=== PATIENT | male | born 1975 | race Caucasian/White ===

== ENCOUNTER → 2019-11-07 08:06 | Outpatient (BNVA) | payer MEDICARE, SELFPAY | PROVIDERS: Visit Provider Nurse Practitioner Psychiatric/Mental Health | DX: F41.1 Generalized anxiety disorder (principal); F15.21 Other stimulant dependence, in remission; F17.210 Nicotine dependence, cigarettes, uncomplicated; F33.2 Major depressive disorder, recurrent severe without psychotic features; Z79.899 Other long term (current) drug therapy; Z03.89 Encounter for observation for other suspected diseases and conditions ruled out | CPT/HCPCS: 80053; 80061; 80307; 83036; 85025; 99214 ==

== ENCOUNTER 2019-11-08 10:50 | Emergency (ER) | payer MEDICARE, SELFPAY ==
[2019-11-08 10:54] VITALS: BP 135/79; PULSE 64; RESP 18; TEMP 36.3; O2SAT 99; BMI 25.0
--- NOTE | 2019-11-08 11:19 | PC.NURSE ---
Patient reports that he was taking out the trash 3 days ago when he began to get right knee pain. Patient states the pain has got worse and it hard for him to lay flat.
--- NOTE | 2019-11-08 11:29 | XR_ITS ---
WS: [id number] Right knee, 3 views, 11/08/2019 Clinical Data: pain, injury Comparison: Right leg, 12/29/2006. Findings: No fractures or dislocations are seen. The joint spaces are normal. The patella is intact. The soft t issues are unremarkable. XR/XR knee RT 3V* [id number] Impression: Negative right knee.
--- NOTE | 2019-11-08 11:30 | W.ED.EXTPRO ---
HPI - Extremity Problem General: Chief complaint: Extremity Problem,Nontraumatic Stated complaint: right knee pain Time Seen by Provider: 11/08/19 11:24 History of Present Illness: HPI Narrative: Patient reports taking out the trash about 3 days ago and since that time his right knee started hurting. For last 2 days patient reports significant pain to the knee making it difficult to sleep and rest. Patient appears in moderate pain. Patient is ambulatory using a cane to help himself walk. Review of Systems General: Reports: 10 or more systems reviewed and unremarkable except in HPI and below Musc: Reports: joint pain PFSH ED PFSH: Medical History (Updated 11/08/19 @ 12:08 by NGUYỄN Ny) Amphetamine dependence, in remission Generalized anxiety disorder Major depressive disorder, recurrent severe without psychotic features Nicotine dependence, cigarettes, uncomplicated Social History (Updated 11/07/19 @ 08:15 by Abbey Clakr LPN) Smoking and tobacco status: current every day smoker cigarettes Packs smoked per day: 1 Physical Exam Const: COMMON NORMALS: no apparent distress and oriented x3 GENERAL APPEARANCE: cooperative HENMT: COMMON NORMALS: normocephalic, external ears normal, EAC's normal, TM's normal bilaterally and external nose normal HEAD & SCALP: normal to inspection and normocephalic FACE & SINUS: normal facial exam NOSE: external nose normal GENERAL EAR: hearing not grossly impaired EXTERNAL EAR: Yes external ears normal EXTERNAL AUDITORY CANAL: EAC's normal TYMPANIC MEMBRANE: TM's normal bilaterally MOUTH: oral and palatal mucosa normal THROAT: posterior oropharynx normal Eye: COMMON NORMALS: PERRL and EOMs intact bilaterally PUPIL: Yes PERRL Neck/C-Spine: COMMON NORMALS: full ROM and no lymphadenopathy Lymph: LYMPHATIC: no lymphedema noted Chest: COMMONS NORMALS: inspection of chest normal and palpation of chest normal Resp: COMMON NORMALS: normal respiratory effort and clear to auscultation bilaterally AUSCULTATION: clear to auscultation bilaterally Cardio: COMMON NORMALS: regular rate and regular rhythm RATE: regular rate RHYTHM: regular rhythm GI: COMMON NORMALS: normal to inspection, nondistended, normoactive bowel sounds and non-tender : COMMON NORMALS: Yes no CVA tenderness BLADDER/KIDNEY EXAM: Yes no CVA tenderness Back/Pelvis: COMMON NORMALS: no CVA tenderness and thoracic and lumbar spine normal to inspection Extremity: COMMON NORMALS: normal to inspection GENERAL: Yes edema (mild right knee, no redness, minimal swelling) RIGHT LOWER EXTREMITY: Yes knee joint (lateral tenderness left knee) Neuro: COMMON NORMALS: oriented x3, moves all extremities and no focal motor deficits Psych: COMMON NORMALS: mental status grossly normal and cooperative Skin: COMMON NORMALS: no rashes or lesions noted GENERAL SKIN EXAM: no rashes or lesions noted Course Vital Signs: Vital signs: Vital Signs Temperature 97.4 F L 11/08/19 10:54 Pulse Rate 64 11/08/19 10:54 Respiratory Rate 18 11/08/19 10:54 Blood Pressure 135/79 11/08/19 10:54 Pulse Oximetry 99 11/08/19 10:54 MDM - Extremity (Nontraumatic) MDM Narrative: Medical decision making narrative: Patient comes in today with right knee pain. Patient been helping with some decking 3 days ago and then at night started having some pain in his right knee. Patient now reports he is unable to bend the knee and has significant pain that he is unable to sleep. Exam notes tenderness to the knee joint bilaterally. No obvious swelling or redness. Skin is warm and dry. Pulses are palpable distal to the extremity with no redness or swelling distal part of the extremity. Differential diagnosis includes arthritis, tendinitis, bursitis, sprain, fracture. X-rays were negative for any abnormality. Reviewed exam with patient recommended treatment for tendinitis. Reviewed that most often it takes 7 to 10 days for this to resolve whether he takes any medication or not. Encourage patient to use ice or heat and be as active as he can. Patient reports understanding. Discharge Plan Discharge Patient Disposition: Home, Self-Care Clinical Impression: Acute pain of right knee, Tendinitis Condition: Stable Prescriptions: New hydrocodone-acetaminophen 5-325 mg tablet 1 tab PO Q6H PRN (Reason: pain) Qty: 10 RF: 0 naproxen 500 mg tablet 500 mg PO BID Qty: 20 RF: 0 prednisone 20 mg tablet 40 mg PO DAILY 5 Days Qty: 10 RF: 0 No Action lamotrigine [Lamictal] 150 mg tablet 150 mg PO BID RF: 0 levetiracetam [Keppra] 750 mg tablet 750 mg PO BID RF: 0 Discharge Orders: Discharge Order (Routine); Ordered 11/08/19 Ordered By: Todd Estrada Discharge Diet: Usual diet Discharge Activity: Increase activity as tolerated Patient Instructions: Knee Pain (ED) Activity Restrictions/Additional Instructions: Activity as tolerated Gentle stretching and range of motion Ice or heat for further pain relief Drink plenty of water with medications Use cane or crutches until you can walk comfortably on leg Follow-up primary care one week 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
[2019-11-08] MEDS: HYDROcodone-acetaminophen 7.5-325 mg Tablet 1 TAB PO (11:37)
[2019-11-08 12:22] VITALS: BP 129/89; PULSE 58; RESP 16; O2SAT 97
== END 2019-11-08 12:23 | disposition home or self-care (01) ==
LOC: ER 12:12
PROVIDERS: Emergency Provider Nurse Practitioner Family
DX: M76.9 Unspecified enthesopathy, lower limb, excluding foot (principal); M25.561 Pain in right knee; F17.210 Nicotine dependence, cigarettes, uncomplicated
CPT/HCPCS: 73562; 99281; 99283; E0114

== ENCOUNTER → 2019-12-28 08:11 | Outpatient (BNVA) | payer MEDICARE, SELFPAY | PROVIDERS: Visit Provider Nurse Practitioner Psychiatric/Mental Health | DX: F33.2 Major depressive disorder, recurrent severe without psychotic features (principal); F41.1 Generalized anxiety disorder; F15.21 Other stimulant dependence, in remission; F17.210 Nicotine dependence, cigarettes, uncomplicated | CPT/HCPCS: 99214 ==

== ENCOUNTER 2020-01-05 18:24 | Emergency (ER) | payer MEDICARE, SELFPAY ==
[2020-01-05 18:53] VITALS: BP 131/84; PULSE 63; RESP 16; TEMP 36.9; O2SAT 97; BMI 24.3
--- NOTE | 2020-01-05 21:44 | ED_ITS ---
HPI - Extremity Problem General: Chief complaint: Extremity Injury, Lower Stated complaint: left leg lac Time Seen by Provider: 01/05/20 21:44 History of Present Illness: Associated symptoms: Deny chest pain, fever(s) or rash Review of Systems Const: Denies: fever, chills or fatigue Eyes: Denies: change in vision or eye discomfort ENMT: Denies: throat pain, painful swallowing, nasal discharge or nasal congestion Card: Denies: chest pain, palpitations, edema, swelling of feet/ankles, shortness of breath on exertion or shortness of breath when lying down Resp: Denies: shortness of breath, productive cough or non-productive cough GI: Denies: abdominal pain, nausea, vomiting, diarrhea, constipation or blood in stool : Denies: flank pain, difficulty urinating, painful urination or blood in urine Musc: Denies: neck pain, back pain or extremity swelling Skin/Breast: Denies: rash or new lesion Neuro: Denies: headache, numbness in extremities or weakness in extremities PFSH ED PFSH: Medical History Amphetamine dependence, in remission early remission, 3 months Last use September 2019 Generalized anxiety disorder Major depressive disorder, recurrent severe without psychotic features Nicotine dependence, cigarettes, uncomplicated Social History Smoking and tobacco status: current every day smoker cigarettes Packs smoked per day: 1 Physical Exam Const: COMMON NORMALS: oriented x3 HENMT: COMMON NORMALS: normocephalic HEAD & SCALP: normocephalic MOUTH: oral and palatal mucosa normal THROAT: posterior oropharynx normal and uvula midline Neck/C-Spine: COMMON NORMALS: supple GENERAL: Yes normal visual inspection Resp: COMMON NORMALS: normal respiratory effort, no retractions, no use of accessory muscles and clear to auscultation bilaterally AUSCULTATION: clear to auscultation bilaterally Cardio: COMMON NORMALS: regular rate, regular rhythm, S1 normal heart sound, S2 normal heart sound, no gallops, no clicks, no murmurs and peripheral pulses 2+ throughout RATE: regular rate RHYTHM: regular rhythm HEART SOUNDS: S1 normal and S2 normal PERIPHERAL PULSES: pulses 2+ throughout GI: COMMON NORMALS: normal to inspection, nondistended, normoactive bowel sounds, soft to palpation, non-tender and no masses PALPATION: Yes soft : COMMON NORMALS: Yes no CVA tenderness BLADDER/KIDNEY EXAM: Yes no CVA tenderness Back/Pelvis: COMMON NORMALS: no CVA tenderness Neuro: COMMON NORMALS: oriented x3 and moves all extremities Course Vital Signs: Vital signs: Vital Signs Temperature 98.5 F 01/05/20 18:53 Pulse Rate 63 01/05/20 18:53 Respiratory Rate 16 01/05/20 18:53 Blood Pressure 131/84 01/05/20 18:53 Pulse Oximetry 97 01/05/20 18:53 Discharge Plan Discharge Prescriptions: No Action lamotrigine [Lamictal] 150 mg tablet 150 mg PO BID RF: 0 levetiracetam [Keppra] 750 mg tablet 750 mg PO BID RF: 0 sertraline [Zoloft] 100 mg tablet 100 mg PO .morning Qty: 30 RF: 3 quetiapine [Seroquel] 25 mg tablet 25 mg PO .bedtime Qty: 30 RF: 1 clonazepam [Klonopin] 0.5 mg tablet 0.25 mg PO BID Qty: 30 RF: 0 clonazepam [Klonopin] 0.5 mg tablet 0.25 mg PO DAILY Qty: 15 RF: 0 clonazepam [Klonopin] 0.5 mg tablet 0.5 mg PO BID Qty: 30 RF: 0 hydrocodone-acetaminophen 5-325 mg tablet 1 tab PO Q6H PRN (Reason: pain) Qty: 10 RF: 0 naproxen 500 mg tablet 500 mg PO BID Qty: 20 RF: 0 Coding 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
== END 2020-01-05 21:46 | disposition left against medical advice (07) ==
PROVIDERS: Emergency Provider Physician Assistant
DX: Z53.29 Procedure and treatment not carried out because of patient's decision for other reasons (principal)
CPT/HCPCS: 99281

== ENCOUNTER 2020-01-06 05:38 | Emergency (ER) | payer MEDICARE, SELFPAY ==
[2020-01-06 05:55] VITALS: BP 127/84; PULSE 73; RESP 18; TEMP 36.6; O2SAT 97; BMI 24.3
--- NOTE | 2020-01-06 06:22 | PC.NURSE ---
MD at bedside for evaluation
--- NOTE | 2020-01-06 06:23 | W.ED.WOUNDLC ---
HPI - Wound/Laceration General: Chief Complaint: Wound/Laceration Stated Complaint: left leg lac Time Seen by Provider: 01/06/20 06:08 History of Present Illness: HPI narrative: A 4-year-old male he was seen last night to be seen for a laceration on the left knee he ended a bleeding because he said he had to bring someone to work returns this morning. He is unsure of his last tetanus shot Onset (ago): hour(s) (12) Extremity Location: Left: knee Place: home Patient tetanus UTD: No Associated symptoms: Denies chills, fever(s), nausea or vomiting Review of Systems Const: Denies: fever, chills, body aches, change in appetite, fatigue or malaise Card: Denies: chest pain, edema, shortness of breath on exertion or shortness of breath when lying down Resp: Denies: shortness of breath, productive cough or non-productive cough GI: Denies: abdominal pain, nausea, vomiting, vomiting blood, coffee grounds in vomit, diarrhea, constipation, bloating, blood in stool or black tarry stool Skin/Breast: Denies: rash or itching PFSH ED PFSH: Social History Smoking and tobacco status: current every day smoker cigarettes Packs smoked per day: 1 Physical Exam Const: COMMON NORMALS: average body habitus, oriented x3 and alert GENERAL APPEARANCE: cooperative, comfortable, well kempt and well developed NUTRITIONAL APPEARANCE: obese ORIENTATION/CONSCIOUSNESS: Yes awake, Yes oriented to person and Yes oriented to place Neck/C-Spine: COMMON NORMALS: no meningeal signs Resp: COMMON NORMALS: normal respiratory effort, no retractions, no use of accessory muscles and clear to auscultation bilaterally AUSCULTATION: clear to auscultation bilaterally Cardio: COMMON NORMALS: regular rate and regular rhythm RATE: regular rate RHYTHM: regular rhythm HEART SOUNDS: no murmurs GI: COMMON NORMALS: normal to inspection, nondistended, normoactive bowel sounds, soft to palpation and no hepatosplenomegaly PALPATION: Yes soft and Yes no hepatosplenomegaly Extremity: COMMON NORMALS: no clubbing, cyanosis or edema, no calf tenderness and no pedal edema NARRATIVE EXTREMITY EXAM: 2 inch laceration lateral aspect of the left knee it is superficial there is no involvement of any deep tissue see laceration note Neuro: COMMON NORMALS: oriented x3 SENSORIUM/ORIENTATION: Yes alert, Yes oriented to person and Yes oriented to place MENINGEAL SIGNS: Yes no meningeal signs Psych: APPEARANCE: Yes well kempt Procedures Laceration Laceration 1: Site: lower extremity (Lateral aspect left knee) Side (If applicable): left Size (cm): 2.5 Description: linear Depth: simple, single layer Local Anesthetic: lidocaine 1% and with epi Amount of anesthesia used (mL): 2 Pre-repair: wound explored and irrigated extensively Skin layer closed with: nylon Size (cm): 4-0 Number of sutures: 1 Technique: running Course Vital Signs: Vital signs: Vital Signs Temperature 97.9 F 01/06/20 05:55 Pulse Rate 73 01/06/20 05:55 Respiratory Rate 18 01/06/20 05:55 Blood Pressure 127/84 01/06/20 05:55 Pulse Oximetry 97 01/06/20 05:55 MDM - Wound/Laceration MDM Narrative: Medical decision making narrative: Wound care instructions given sutures to be removed in 10 days. Return for any signs of infection Discharge Plan Discharge Patient Disposition: Home, Self-Care Clinical Impression: Laceration Condition: Stable Prescriptions: New mupirocin 2 % ointment 1 applic TOPICAL BID Qty: 22 RF: 0 cephalexin 500 mg capsule 500 mg PO TID 7 Days Qty: 21 RF: 0 No Action levetiracetam [Keppra] 750 mg tablet 750 mg PO BID RF: 0 sertraline [Zoloft] 100 mg tablet 100 mg PO .morning Qty: 30 RF: 3 Discharge Orders: Discharge Order (Routine); Ordered 01/06/20 Ordered By: Saji Melton Discharge Diet: Usual diet Discharge Activity: Resume usual activity Patient Instructions: Laceration (ED) Activity Restrictions/Additional Instructions: Follow-up with your primary care doctor in 10 days to have sutures removed. Apply antibiotic ointment twice daily to the wound. 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
--- NOTE | 2020-01-06 06:32 | PC.NURSE ---
MD at bedside to repair laceration. Pt. tolerating well
[2020-01-06] MEDS: tetanus-dipt-pertussis 0.5 mL SDV IM (06:49)
--- NOTE | 2020-01-06 06:58 | PC.NURSE ---
Report given to Roxanne FULLER
[2020-01-06] MEDS: neomycin-poly-bacitracin oint 0.9 gm Pkt 1 APPLIC TOPICAL (07:03)
--- NOTE | 2020-01-06 07:10 | PC.NURSE ---
Ointment and bandaid applied to wound on left knee prior to D/C.
[2020-01-06 07:13] VITALS: PULSE 78; RESP 17; O2SAT 98
== END 2020-01-06 07:09 | disposition home or self-care (01) ==
PROVIDERS: Emergency Provider Family Medicine
DX: S81.012A Laceration without foreign body, left knee, initial encounter (principal); X58.XXXA Exposure to other specified factors, initial encounter; Z23 Encounter for immunization; F17.210 Nicotine dependence, cigarettes, uncomplicated
CPT/HCPCS: 12001; 12345; 90471; 90715; 99281; 99283

== ENCOUNTER 2020-01-15 03:49 | Emergency (ER) | payer MEDICARE, SELFPAY ==
[2020-01-15 03:59] VITALS: BP 161/84; PULSE 90; RESP 22; TEMP 36.6; O2SAT 96; BMI 22.8
--- NOTE | 2020-01-15 04:02 | XRR_ITS ---
PROCEDURE INFORMATION: Exam: XR Chest, 1 View Exam date and time: 01/15/2020 4:56 AM Age: 44 years old Clinical indication: Prior surgery; Surgery date: 6+ months; Surgery type: Stim; Patient HX: Seizure activity w n/v; Additional info: Rebecca TECHNIQUE: Imaging protocol: XR of the chest Views: 1 view. COMPARISON: CR Chest 1 [place] [id number] 01/15/2019 2:09 PM FINDINGS: Lungs: There are some increased interstitial markings present in the lower hemithoraces bilaterally, findings could represent mild aspiration pneumonitis in view the patient's clinical history of seizure activity. Pleural space: Unremarkable. No pleural effusion. No pneumothorax. Heart/Mediastinum: Unremarkable. No cardiomegaly. Vasculature: Stable placement of a neuro stimulating device overlying the left carotid artery. Bones/joints: Unremarkable. XR/XR chest 1V portable [id number] IMPRESSION: Increased interstitial markings in the lower hemithoraces could represent mild aspiration pneumonitis.
--- NOTE | 2020-01-15 04:02 | CTR_ITS ---
PROCEDURE INFORMATION: Exam: CT Head Without Contrast Exam date and time: 01/15/2020 4:15 AM Age: 44 years old Clinical indication: Condition or disease; Convulsions or seizures; Epilepsy; Severity not specified; Unspecified; Prior surgery; Surgery date: 6+ months; Surgery type: Stim; Patient HX: Multiple seizures; Additional info: Rebecca TECHNIQUE: Imaging protocol: Computed tomography of the head without contrast. Radiation optimization: All CT scans at this facility use at least one of these dose optimization techniques: automated exposure control; mA and/or kV adjustment per patient size (includes targeted exams where dose is matched to clinical indication); or iterative reconstruction. COMPARISON: CT head wo con* [id number] 12/04/2018 6:23 PM RADIATION DOSE METRICS: Total DLP: 644.13 mGy-cm FINDINGS: Brain: Normal. No hemorrhage. Unremarkable white matter. No mass effect. Ventricles: Normal. No ventriculomegaly. Bones/joints: Unremarkable. No acute fracture. Sinuses: Visualized sinuses are unremarkable. No fluid levels. Mastoid air cells: Visualized mastoid air cells are well aerated. Soft tissues: Unremarkable. CT/CT head wo con* [id number] IMPRESSION: No acute intracranial abnormality. Radiation Dose CTDIVOL = (mGy): DLP = 644.13 (mGy-cm)
[2020-01-15 04:04] VITALS: BP 133/60; PULSE 98; RESP 16; O2SAT 96
[2020-01-15] MEDS: midazolam 1 mg/mL INJ 2 mL 2 MG IVP (04:12)
[2020-01-15 04:17] LABS: Basophils % 0.2 %; Eosinophils % 0.1 %; Hemoglobin 15.6 g/dL (11.7-16.6); Lymphocytes # 1.5 10^3/uL (0.8-4.8); Lymphocytes % 9.9 %; Mean Corpuscular HGB Conc 31.2 g/dL (30.0-36.0); Mean Corpuscular Volume 99.4 fL (80-94); Mean Platelet Volume 9.9 fL (7.4-10.4); Monocytes # 0.7 10^3/uL (0.2-0.9); Monocytes % 4.7 %; Neutrophils # 13.1 10^3/uL (1.8-7.7); Neutrophils % 84.7 %; Nucleated Red Blood Cells % 0 %; Platelet Count 285 10^3/cmm (130-400); Red Blood Count 5.03 10^6/uL (4.1-5.3); Red Cell Distribution Width 12.8 % (12.1-15.1); White Blood Count 15.5 10^3/uL (4.0-10.0)
[2020-01-15 04:27] LABS: ABG PCO2 38.1 mmHg (35-45); ABG PH Result 7.28 (7.35-7.45); Arterial Blood Gas Hematocrit 48.9 % (42-52); Base Excess ABG -8.4 mmol/L (-2.0-2.0); Blood Gas Allen Test Pos; Blood Gas Sample Site Radial, left; Blood Gas Sample Type Arterial; HCO3 ABG 17.7 mmol/L (22-26); PO2 ABG 73.7 mmHg (80.0-100.0)
[2020-01-15] MEDS: sodium chloride 0.9% 500 ML IV (04:29)
[2020-01-15 04:30] LABS: Alanine Aminotransferase 14 U/L (0-41); Albumin Level 4.9 g/dL (3.5-5.2); Alkaline Phosphatase 104 IU/L (40-130); Anion Gap 34.9 (5-19); Aspartate Amino Transferase 27 U/L (0-40); Blood Urea Nitrogen 7 mg/dL (6-20); Calcium 9.9 mg/dL (8.5-10.5); Carbon Dioxide 13 mmol/L (22-29); Chloride 101 mmol/L (98-107); Globulin 3.2 g/dL (1.3-4.6); Glomerular Filtration Rate 50.4 mL/min (90-130); Glucose 151 mg/dL (65-115); Magnesium 2.6 mg/dL (1.7-2.3); Osmolality Calculated 299 mOsm/kg (285-295); Potassium 3.9 mmol/L (3.5-5.1); Salicylate 1.1 mg/dL (3-10); Sodium 145 mmol/L (136-145); Total Bilirubin 0.2 mg/dL (0.15-1.2); Total Protein 8.1 g/dL (6.6-8.7)
[2020-01-15] MEDS: ondansetron 2 mg/ML SDV 2 mL 8 MG IVP (04:31)
[2020-01-15] MEDS: midazolam 1 mg/mL INJ 2 mL 2 MG (04:32)
[2020-01-15 04:34] LABS: Acetaminophen < 5.0 ug/mL (10-30); Alcohol Level < 10 mg/dL (0-10); Creatine Phosphokinase 328 U/L (39-308)
--- NOTE | 2020-01-15 04:35 | PC.NURSE ---
advised dr escobedo of ck [id number], no orders received at this time
--- NOTE | 2020-01-15 04:56 | W.ED.SEIZURE ---
HPI - Seizure General: Chief Complaint: Seizure Stated Complaint: SEIZURES/ ETOH Time Seen by Provider: 01/15/20 04:00 History of Present Illness: HPI Narrative: 44-year-old male picked up from a local hotel room by EMS. The chief complaint was 3-4 seizures in the hotel room. On EMS arrival, they were several beer cans present and it is assumed that the patient had been drinking. He does have a history of seizures. He had a decreased mental status for the EMS crew, but would answer some yes/no questions by shaking his head. On arrival to the ER, he has another seizure in the room. He is again confused. He had vomited in the ambulance, and has vomited here as well. MD complaint: seizure Onset (ago): hour(s) (1) Description of Episode: loss of consciousness and tonic-clonic movement Witnessed: Yes - by Bystander Trauma: Yes Seizure History: Yes Place: Home Possible Precipitating Event: other (unknown) Associated symptoms: Reports confusion Treatments prior to arrival: none Review of Systems General: Reports: ROS unobtainable due to mental status Neuro: Reports: confusion PFSH ED PFSH: Social History Smoking and tobacco status: unknown if ever smoked Physical Exam Const: GENERAL APPEARANCE: well developed HENMT: COMMON NORMALS: normocephalic, external ears normal and external nose normal HEAD & SCALP: normocephalic FACE & SINUS: normal facial exam NOSE: external nose normal and no nasal discharge EXTERNAL EAR: Yes external ears normal MOUTH: tongue normal THROAT: posterior oropharynx normal Eye: COMMON NORMALS: PERRL, EOMs intact bilaterally and conjunctivae normal EYELID: eyelids normal CONJUNCTIVA: Yes conjunctivae normal PUPIL: Yes PERRL Neck/C-Spine: GENERAL: No tracheal deviation Chest: COMMONS NORMALS: inspection of chest normal CHEST: No tenderness Resp: COMMON NORMALS: clear to auscultation bilaterally EFFORT & INSPECTION: No tachypneic, No respiratory distress, No retractions, No uses accessory muscles and No tracheal deviation AUSCULTATION: clear to auscultation bilaterally, no rhonchi, no wheezes and lung sounds not diminished Cardio: COMMON NORMALS: regular rate and regular rhythm RATE: regular rate RHYTHM: regular rhythm HEART SOUNDS: no murmurs PERIPHERAL PULSES: radial pulses present GI: INSPECTION: No abdominal distension AUSCULTATION: No hyperactive bowel sounds and No hypoactive bowel sounds PALPATION: No guarding and No rigid PERCUSSION: no dullness to percussion and no tympanic to percussion Neuro: SPEECH: abnormal speech (nonverbal) GAIT: Yes unable to assess gait SENSORY EXAM: Yes extremities (moves all) MOTOR EXAM: strength 5/5 throughout Skin: COMMON NORMALS: no rashes or lesions noted GENERAL SKIN EXAM: no rashes or lesions noted Course Vital Signs: Vital signs: Vital Signs Temperature 97.9 F 01/15/20 03:59 Pulse Rate 98 01/15/20 04:04 Respiratory Rate 16 01/15/20 04:04 Blood Pressure 133/60 01/15/20 04:04 Pulse Oximetry 96 01/15/20 04:04 MDM - Seizure MDM Narrative: Medical decision making narrative: 44-year-old male with a history of seizure disorder. He presents after several seizures in a hotel room. He has vomited a couple of times. He is essentially obtunded and postictal on arrival. He has been given Versed, because he had 1 more seizure here. Heart rate 83, sinus rhythm, blood pressure 129/79. Respiratory rate of 14, saturations 97%. He moves all extremities. It was assumed, that he had been drinking, given where he was picked up, but his alcohol level is less than 10. He has a significant anion gap metabolic acidosis. His sugar is only 150. He does have a white blood cell count of 15.5. Lactate is pending. Urine drug screen is pending. He is on Keppra for his seizures, and is infused with 500 mg of Keppra. 06:06 Patient is now awake. He has been up walking. He does not remember the episode. He is lucid. He knows person time and situation as well as place. He has a significant gap acidosis. He has received 500 mL of fluid. He will get 1 more liter. Blood gas will be rechecked at that point the patient would like to go home. He will be allowed at that has improved and his gap is closed. He will be checked out to Dr. Esparza at shift change to follow-up on blood gas. Lab Data: Labs: Lab Results 01/15/20 01/15/20 01/15/20 Range/Units 04:02 04:11 04:11 WBC 15.5 H (4.0-10.0) 10^3/ uL RBC 5.03 (4.1-5.3) 10^6/u L Hgb 15.6 (11.7-16.6) g/dL Hct 50.0 (42.0-52.0) % MCV 99.4 H (80-94) fL MCH 31.0 (28.0-34.0) pg MCHC 31.2 (30.0-36.0) g/dL RDW 12.8 (12.1-15.1) % Plt Count 285 (130-400) 10^3/c mm MPV 9.9 (7.4-10.4) fL Neut % (Auto) 84.7 % Lymph % (Auto) 9.9 % [place] % (Auto) 4.7 % Eos % (Auto) 0.1 % Baso % (Auto) 0.2 % Neut # (Auto) 13.1 H (1.8-7.7) 10^3/u L Lymph # (Auto) 1.5 (0.8-4.8) 10^3/u L [place] # (Auto) 0.7 (0.2-0.9) 10^3/u L Eos # (Auto) 0.0 (0.0-0.8) 10^3/u L Baso # (Auto) 0.0 (0.0-0.1) 10^3/u L Nucleated RBC % (a uto) 0 % Nucleated RBCs # 0.0 /100WBC PT 14.20 H (10.5-13.3) SECO NDS INR 1.10 (0.8-1.2) Specimen Type Arterial Sample Site Radial, left ABG pH 7.28 L (7.35-7.45) ABG pCO2 38.1 (35-45) mmHg ABG pO2 73.7 L (80.0-100.0) mmH g ABG HCO3 17.7 L (22-26) mmol/L ABG Base Excess -8.4 L (-2.0-2.0) mmol/ L Kurt Test Pos Hematocrit 48.9 (42-52) % O2 Delivery Device None Integration Solution Architect ID [email or web address] Sodium (136-145) mmol/L Potassium (3.5-5.1) mmol/L Chloride (98-107) mmol/L Carbon Dioxide (22-29) mmol/L Anion Gap (5-19) BUN (6-20) mg/dL Creatinine (0.7-1.2) mg/dL GFR Calculation (90-130) mL/min Glucose (65-115) mg/dL Calculated Osmolal ity (285-295) mOsm/k g Calcium (8.5-10.5) mg/dL Phosphorus (2.5-4.5) mg/dL Magnesium (1.7-2.3) mg/dL Total Bilirubin (0.15-1.2) mg/dL AST (0-40) U/L ALT (0-41) U/L Alkaline Phosphata se (40-130) IU/L Creatine Kinase (39-308) U/L Total Protein (6.6-8.7) g/dL Albumin (3.5-5.2) g/dL Globulin (1.3-4.6) g/dL Salicylates (3-10) mg/dL Acetaminophen (10-30) ug/mL Ethyl Alcohol (0-10) mg/dL 01/15/20 Range/Units 04:11 WBC (4.0-10.0) 10^3/ uL RBC (4.1-5.3) 10^6/u L Hgb (11.7-16.6) g/dL Hct (42.0-52.0) % MCV (80-94) fL MCH (28.0-34.0) pg MCHC (30.0-36.0) g/dL RDW (12.1-15.1) % Plt Count (130-400) 10^3/c mm MPV (7.4-10.4) fL Neut % (Auto) % Lymph % (Auto) % [place] % (Auto) % Eos % (Auto) % Baso % (Auto) % Neut # (Auto) (1.8-7.7) 10^3/u L Lymph # (Auto) (0.8-4.8) 10^3/u L [place] # (Auto) (0.2-0.9) 10^3/u L Eos # (Auto) (0.0-0.8) 10^3/u L Baso # (Auto) (0.0-0.1) 10^3/u L Nucleated RBC % (a uto) % Nucleated RBCs # /100WBC PT (10.5-13.3) SECO NDS INR (0.8-1.2) Specimen Type Sample Site ABG pH (7.35-7.45) ABG pCO2 (35-45) mmHg ABG pO2 (80.0-100.0) mmH g ABG HCO3 (22-26) mmol/L ABG Base Excess (-2.0-2.0) mmol/ L Kurt Test Hematocrit (42-52) % O2 Delivery Device Integration Solution Architect ID Sodium 145 (136-145) mmol/L Potassium 3.9 (3.5-5.1) mmol/L Chloride 101 (98-107) mmol/L Carbon Dioxide 13 L (22-29) mmol/L Anion Gap 34.9 H (5-19) BUN 7 (6-20) mg/dL Creatinine 1.5 H (0.7-1.2) mg/dL GFR Calculation 50.4 L (90-130) mL/min Glucose 151 H (65-115) mg/dL Calculated Osmolal ity 299 H (285-295) mOsm/k g Calcium 9.9 (8.5-10.5) mg/dL Phosphorus 3.0 (2.5-4.5) mg/dL Magnesium 2.6 H (1.7-2.3) mg/dL Total Bilirubin 0.2 (0.15-1.2) mg/dL AST 27 (0-40) U/L ALT 14 (0-41) U/L Alkaline Phosphata se 104 (40-130) IU/L Creatine Kinase 328 H* (39-308) U/L Total Protein 8.1 (6.6-8.7) g/dL Albumin 4.9 (3.5-5.2) g/dL Globulin 3.2 (1.3-4.6) g/dL Salicylates 1.1 L (3-10) mg/dL Acetaminophen < 5.0 L (10-30) ug/mL Ethyl Alcohol < 10 (0-10) mg/dL Discharge Plan Discharge Prescriptions: No Action levetiracetam [Keppra] 750 mg tablet 1,500 mg PO DAILY RF: 0 lamotrigine 150 mg Tablet 150 mg PO BID RF: 0 clonazepam 0.5 mg Tablet 0.25 mg PO BID RF: 0 Coding Level of Care Code 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
[2020-01-15] MEDS: sodium chloride 0.9% 1,000 ML 999 ML IV (05:57)
[2020-01-15 06:33] LABS: Ammonia 17 umol/L (16-60)
[2020-01-15 07:00] LABS: Add Urine Microscopic? YES; Bilirubin Urine Neg (NEGATIVE); Blood Urine 2+ (Negative); Glucose Urine UA Norm (Normal); Ketones Urine Negative (Negative); Leukocyte Esterase Urine Negative (Negative); Nitrate Urine Negative (Negative); Protein Urine Neg (Negative); Specific Gravity, Urine 1.015 (1.005-1.030); Urine Appearance Clear (CLEAR); Urine Color Yellow (Yellow); Urobilinogen Urine Norm (Negative); pH Urine 5 (5-7)
[2020-01-15 07:01] LABS: Add Urine Culture? No; Bacteria Urine TRACE; RBC Urine 0-4 /hpf (0-2); Sperm Urine 1+; Transitional Epi Cells Urine RARE /hpf; WBC Urine 0-4 /hpf (0-5)
--- NOTE | 2020-01-15 07:11 | PC.NURSE ---
Patient laying in bed very restless. Patient fidgeting and refusing to lay still in the bed. Patient refusing to keep rails up with seizure pads in place. Patient speech still slightly slurred and difficult to understand.
[2020-01-15 07:23] LABS: Amphetamines Screen Urine Positive (Negative); Barbiturates Screen Urine Negative (Negative); Benzodiazepines Screen Urine Negative (Negative); Cocaine Screen Urine Negative (Negative); Opiate Screen Urine Negative (Negative); PCP Screen Urine Negative (Negative); THC Screen Urine Negative (Negative)
[2020-01-15 08:04] LABS: ABG PCO2 31.8 mmHg (35-45); ABG PH Result 7.42 (7.35-7.45); Arterial Blood Gas Hematocrit 45.9 % (42-52); Base Excess ABG -2.8 mmol/L (-2.0-2.0); Blood Gas Allen Test Pos; Blood Gas Operator Identificat glc; Blood Gas Sample Site Radial, left; Blood Gas Sample Type Arterial; HCO3 ABG 20.7 mmol/L (22-26)
[2020-01-15 08:06] LABS: Oxygen Device RA
[2020-01-15 08:24] VITALS: BP 146/66; PULSE 76; RESP 16; O2SAT 97
== END 2020-01-15 08:27 | disposition home or self-care (01) ==
PROVIDERS: Emergency Provider Emergency Medicine
DX: R56.9 Unspecified convulsions (principal)
CPT/HCPCS: 12345; 36600; 70450; 71045; 80053; 80306; 80307; 81001; 82140; 82550; 82803; 83605; 83735; 84100; 85025; 85610; 96365; 96366; 96374; 96375; 96376; 99283; 99284; J1953; J2250; J2405; J7030; J7040

== ENCOUNTER → 2020-03-02 07:38 | Outpatient (BNVA) | payer MEDICARE, SELFPAY | PROVIDERS: Visit Provider Nurse Practitioner Psychiatric/Mental Health | DX: F33.2 Major depressive disorder, recurrent severe without psychotic features (principal); F41.1 Generalized anxiety disorder; F15.21 Other stimulant dependence, in remission; F17.210 Nicotine dependence, cigarettes, uncomplicated | CPT/HCPCS: 99214 ==

== ENCOUNTER → 2020-03-07 08:45 | Outpatient (BNVA) | payer MEDICARE, SELFPAY | PROVIDERS: Visit Provider Specialist | DX: G40.209 Localization-related (focal) (partial) symptomatic epilepsy and epileptic syndromes with complex partial seizures, not intractable, without status epilepticus (principal); F15.20 Other stimulant dependence, uncomplicated | CPT/HCPCS: 99214 ==

== ENCOUNTER 2020-03-19 13:24 | Inpatient (IN) | payer MEDICARE, SELFPAY ==
[2020-03-19] VITALS (9 sets, daily range): BP systolic 119–134; BP diastolic 76–87; PULSE 57–80; RESP 12–18; TEMP 36.4–36.6; O2SAT 95–98; BMI 25.0
--- NOTE | 2020-03-19 13:37 | ED_ITS ---
Documented by User: CANDE Post 03/19/20 16:36 HPI - Abdominal Pain General: Chief Complaint: Abdominal Pain Stated Complaint: ABD PAIN Time Seen by Provider: 03/19/20 13:28 Source: patient Mode of arrival: ambulatory Limitations: no limitations History of Present Illness: HPI narrative: Patient is a 44-year-old male who presents to ED today with complaint of abdominal pain that began around 10 PM yesterday evening. Patient tells me pain has progressively worsened since onset. He describes the pain as sharp and crampy and diffuse. Patient reports to nausea and 2 episodes of nonbloody vomit. He reports last BM being 2 days ago. States he is not passing gas. No change in urinary habits. He has not been running fevers. He denies recent alcohol or anti-inflammatory use. Patient denies history of acid reflux/GERD. He reports one previous abdominal surgery of an exploratory laparoscopy with appendectomy several years ago. MD elicited complaint: abdominal pain Onset (ago): hour(s) Pain Consistency: constant Location: Diffuse Quality: cramping and sharp Exacerbating factors: nothing Relieving factors: nothing Associated Symptoms: Reports nausea and vomiting; Denies change in bowel habits, chills, coffee ground emesis, diarrhea, dysuria, fever(s), heartburn, hematochezia, hematemesis, melena and syncope Review of Systems Const: Denies: fever(s), chills, body aches or fatigue Card: Denies: chest pain, palpitations, irregular heart rhythm, edema, swelling of feet/ankles, lightheadedness, syncope, pre-syncope, dyspnea on exertion or orthopnea Resp: Denies: dyspnea, productive cough, non-productive cough, hemoptysis or chest congestion GI: Reports: abdominal pain, nausea and vomiting; Denies: hematemesis, coffee ground emesis, heartburn, diarrhea, change in bowel habits, pain on defecation, hematochezia, melena or white/light colored stool : Denies: flank pain, difficulty urinating, dysuria, urinary frequency, urinary urgency or urinary hesitancy Musc: Denies: neck pain or back pain Skin/Breast: Denies: rash Neuro: Denies: headache(s), numbness in extremities, weakness in extremities or sensory changes PFS ED PFSH: Medical History (Updated 03/19/20 @ 16:36 by CANDE Post) Amphetamine dependence, in remission early remission, 3 months Last use September 2019 Generalized anxiety disorder Major depressive disorder, recurrent severe without psychotic features Nicotine dependence, cigarettes, uncomplicated Surgical History (Updated 03/19/20 @ 15:08 by Eloise Ware APRN) History of appendectomy Status post placement of VNS (vagus nerve stimulation) device 2007 [place] VNS placement Family History (Updated 03/15/20 @ 10:07 by Jo Ann Aguilar LPN) Grandfather CAD (coronary artery disease) Hypertension Grandmother Cancer Stroke Social History (Updated 03/15/20 @ 10:08 by Jo Ann Aguilar LPN) Smoking and tobacco status: current every day smoker cigarettes Packs smoked per day: 1 Alcohol intake: never Household members: significant other Marital status: Single Current occupational status: disabled History of recent travel: No Physical Exam Const: COMMON NORMALS: no acute distress, patient oriented x3, no limitations and alert GENERAL APPEARANCE: cooperative OTHER: appears uncomfortable HENMT: COMMON NORMALS: normocephalic and atraumatic HEAD & SCALP: normocephalic and atraumatic Chest: COMMONS NORMALS: normal inspection of the chest and normal palpation of entire chest wall Resp: COMMON NORMALS: normal respiratory effort and clear to auscultation bilaterally AUSCULTATION: clear to auscultation bilaterally Cardio: COMMON NORMALS: regular rate and regular rhythm RATE: regular rate RHYTHM: regular rhythm GI: COMMON NORMALS: Normal to inspection, nondistended, normoactive bowel sounds present, No hepatosplenomegaly present and no masses INSPECTION: Yes normal to inspection AUSCULTATION: Yes Hypoactive bowel sounds present PALPATION: Yes Tenderness to palpation present (GI) (diffusely ), Yes Guarding due to palpation present (GI) (diffusely ) and Yes No hepatosplenomegaly present : COMMON NORMALS: Yes no CVA tenderness BLADDER/KIDNEY EXAM: Yes no CVA tenderness Back/Pelvis: COMMON NORMALS: no CVA tenderness Extremity: COMMON NORMALS: normal to inspection Neuro: COMMON NORMALS: patient oriented x3 SENSORIUM/ORIENTATION: Yes alert Skin: COMMON NORMALS: no rashes or lesions noted GENERAL SKIN EXAM: no rashes or lesions noted Course Vital Signs: Vital signs: Vital Signs Temperature 97.5 F L 03/19/20 13:30 Pulse Rate 57 L 03/19/20 13:35 Respiratory Rate 14 03/19/20 17:24 Blood Pressure 134/87 03/19/20 13:30 Pulse Oximetry 97 03/19/20 13:35 MDM - Abdominal Pain MDM Narrative: Medical decision making narrative: I have spoken to Dr. Melton who will see/evaluate patient and speak to Dr. David and possibly hospitalist for admission. Lab Data: Labs: Lab Results 03/19/20 03/19/20 03/19/20 Range/Units 14:00 14:00 14:00 WBC 13.0 H (4.0-10.0) 10^3/ uL RBC 5.64 H (4.1-5.3) 10^6/u L Hgb 16.8 H (11.7-16.6) g/dL Hct 49.6 (42.0-52.0) % MCV 87.9 (80-94) fL MCH 29.8 (28.0-34.0) pg MCHC 33.9 (30.0-36.0) g/dL RDW 12.5 (12.1-15.1) % Plt Count 326 (130-400) 10^3/c mm MPV 9.5 (7.4-10.4) fL Neut % (Auto) 81.4 % Lymph % (Auto) 11.3 % [place] % (Auto) 6.6 % Eos % (Auto) 0.2 % Baso % (Auto) 0.3 % Neut # (Auto) 10.6 H (1.8-7.7) 10^3/u L Lymph # (Auto) 1.5 (0.8-4.8) 10^3/u L [place] # (Auto) 0.9 (0.2-0.9) 10^3/u L Eos # (Auto) 0.0 (0.0-0.8) 10^3/u L Baso # (Auto) 0.0 (0.0-0.1) 10^3/u L Nucleated RBC % (a uto) 0 % Nucleated RBCs # 0.0 /100WBC Sodium (136-145) mmol/L Potassium (3.5-5.1) mmol/L Chloride (98-107) mmol/L Carbon Dioxide (22-29) mmol/L Anion Gap (5-19) BUN (6-20) mg/dL Creatinine (0.7-1.2) mg/dL GFR Calculation (90-130) mL/min Glucose (65-115) mg/dL Calculated Osmolal ity (285-295) mOsm/k g Lactate (0.5-2.2) mmol/L Calcium (8.5-10.5) mg/dL Total Bilirubin (0.15-1.2) mg/dL AST (0-40) U/L ALT (0-41) U/L Alkaline Phosphata se (40-130) IU/L Total Protein (6.6-8.7) g/dL Albumin (3.5-5.2) g/dL Globulin (1.3-4.6) g/dL Lipase (13-60) U/L Urine Color Dark yellow (Yellow) Urine Appearance Clear (CLEAR) Urine pH 9 H (5-7) Ur Specific Gravit y 1.015 (1.005-1.030) Urine Protein Neg (Negative) Urine Glucose (UA) Norm (Normal) Urine Ketones 1+ H (Negative) Urine Blood Neg (Negative) Urine Nitrate Negative (Negative) Urine Bilirubin Neg (NEGATIVE) Prot Sulfosalicyli c Acd Negative (Negative) Urine Urobilinogen Norm (Negative) mg/dL Ur Leukocyte Kate ase Negative (Negative) Urine Opiates Scre en Negative (Negative) ng/mL Ur Barbiturates Sc reen Negative (Negative) ng/mL Ur Phencyclidine S crn Negative (Negative) ng/mL Ur Amphetamines Sc reen Negative (Negative) ng/mL U Benzodiazepines Scrn Negative (Negative) ng/mL Urine Cocaine Scre en Negative (Negative) ng/mL U Marijuana (THC) Screen Positive H (Negative) ng/mL 03/19/20 03/19/20 Range/Units 14:05 16:17 WBC (4.0-10.0) 10^3/ uL RBC (4.1-5.3) 10^6/u L Hgb (11.7-16.6) g/dL Hct (42.0-52.0) % MCV (80-94) fL MCH (28.0-34.0) pg MCHC (30.0-36.0) g/dL RDW (12.1-15.1) % Plt Count (130-400) 10^3/c mm MPV (7.4-10.4) fL Neut % (Auto) % Lymph % (Auto) % [place] % (Auto) % Eos % (Auto) % Baso % (Auto) % Neut # (Auto) (1.8-7.7) 10^3/u L Lymph # (Auto) (0.8-4.8) 10^3/u L [place] # (Auto) (0.2-0.9) 10^3/u L Eos # (Auto) (0.0-0.8) 10^3/u L Baso # (Auto) (0.0-0.1) 10^3/u L Nucleated RBC % (a uto) % Nucleated RBCs # /100WBC Sodium 140 (136-145) mmol/L Potassium 4.0 (3.5-5.1) mmol/L Chloride 100 (98-107) mmol/L Carbon Dioxide 26 (22-29) mmol/L Anion Gap 18.0 (5-19) BUN 10 (6-20) mg/dL Creatinine 1.1 (0.7-1.2) mg/dL GFR Calculation 72.1 L (90-130) mL/min Glucose 119 H (65-115) mg/dL Calculated Osmolal ity 287 (285-295) mOsm/k g Lactate 0.9 (0.5-2.2) mmol/L Calcium 10.4 (8.5-10.5) mg/dL Total Bilirubin 0.6 (0.15-1.2) mg/dL AST 17 (0-40) U/L ALT 16 (0-41) U/L Alkaline Phosphata se 106 (40-130) IU/L Total Protein 7.2 (6.6-8.7) g/dL Albumin 4.7 (3.5-5.2) g/dL Globulin 2.5 (1.3-4.6) g/dL Lipase 17 (13-60) U/L Urine Color (Yellow) Urine Appearance (CLEAR) Urine pH (5-7) Ur Specific Gravit y (1.005-1.030) Urine Protein (Negative) Urine Glucose (UA) (Normal) Urine Ketones (Negative) Urine Blood (Negative) Urine Nitrate (Negative) Urine Bilirubin (NEGATIVE) Prot Sulfosalicyli c Acd (Negative) Urine Urobilinogen (Negative) mg/dL Ur Leukocyte Kate ase (Negative) Urine Opiates Scre en (Negative) ng/mL Ur Barbiturates Sc reen (Negative) ng/mL Ur Phencyclidine S crn (Negative) ng/mL Ur Amphetamines Sc reen (Negative) ng/mL U Benzodiazepines Scrn (Negative) ng/mL Urine Cocaine Scre en (Negative) ng/mL U Marijuana (THC) Screen (Negative) ng/mL Imaging Data ^: CT Abd/Pel: Radiologist's impression: [address] [place] [address] CT Scan Report Signed Patient: Petar Stone Unit #: [id number] : [id number] Age/Sex: 44 / M ADM Date: 03/19/20 Loc: ER Room/Bed: Attending Dr: Ordering Provider/Ordering MD: Bianca Lyman Date of Service: 03/19/20 Procedure(s): CT abdomen pelvis w con* [id number] Accession Number(s): [id number] Report Number: [id number] WS: [id number] CT ABDOMEN AND PELVIS WITH CONTRAST HISTORY: abdominal pain, N/V TECHNIQUE: Imaging performed of the abdomen and pelvis with IV contrast. Single phase imaging of the abdomen. Coronal and sagittal reformats are submitted. All CT scans at [facility] use at least one of these dose optimization techniques: automated exposure control; mA and/or kV adjustment per patient size (includes targeted exams where dose is matched to clinical indication); or iterative reconstruction. IV CONTRAST: Omnipaque 300; 95 mL IV. Oral contrast: No DLP: 555.61 mGy.cm COMPARISON: 12/01/2018 Lower thorax: Lung bases are hyperexpanded. Minimal atelectasis at the RIGHT lung base. Heart is normal size. Small hiatal hernia. Liver/biliary system: Normal size with no intrahepatic dilatation. Gallbladder: Normal. No gallstones or wall thickening. No pericholecystic fluid. Pancreas: Normal. Spleen: Small amount of fluid adjacent to the spleen. New since 12/01/2018. Adrenal glands: Normal. Right kidney: Normal. Left kidney: Subcentimeter cortical cyst mid kidney. Aorta: Normal. Lymphadenopathy: None. Free fluid: There is a small amount of fluid adjacent to the spleen and also within the pelvis and along the RIGHT paracolic gutter. GI tract: Marked dilatation of proximal and mid small bowel. Loops measure up to 6 cm in diameter. Change in caliber of the small bowel loops in the distal jejunum. There is tethering in the central pelvis and this is probably the area of the obstruction due to change in caliber. Ileum is also abnormal with diffuse circumferential thickening. Prior appendectomy. Stomach is distended. Mild mucosal thickening involving the duodenal C-loop. Abdominal wall: Unremarkable abdominal wall. No hernia. Pelvis: Small amount of free fluid in the pelvis. Urinary bladder is minimally distended. Bones: Subchondral cystic changes in the RIGHT femoral head. Unilateral LEFT pars defect at L5 or S1. CT/CT abdomen pelvis w con* [id number] IMPRESSION: 1. High-grade small bowel obstruction. Change of caliber in the mid to distal small bowel. 2. Distal small bowel at the terminal ileum is also abnormal suggesting possibility of Crohn's disease. 3. Small amount of free fluid around the spleen and within the pelvis. 4. Prior appendectomy. Dictated By: Aida Madera DO Signed By: Aida Madera DO Signed Date/Time: 03/19/20 1604 DD/ 1554 Discharge Plan Discharge Patient Disposition: Admitted As Inpatient Admit Provider: Zion David Clinical Impression: SBO (small bowel obstruction) Condition: Stable Referrals: Melonie Lyman MD [Primary Care Provider] - Sign Out Sign Out Data: Patient Sign Out occurred on 03/19/20 at 17:10. Patient's care was discussed, and care was transferred from to Saji Melton DO. Coding Level of Care Code ED Child Care Lead Teacher for Chg Fwd Exam Comprehensive Documented by User: Saji Melton DO 03/19/20 17:59 HPI - Abdominal Pain General: Chief Complaint: Abdominal Pain Stated Complaint: ABD PAIN Time Seen by Provider: 03/19/20 13:28 History of Present Illness: HPI narrative: 44-year-old male with severe abdominal pain started last night he is vomited once since he got here. He still having severe abdominal pain and cramping feels very nauseous. He is seen initially by the PA and found to have a high-grade bowel obstruction he is being admitted now. MD elicited complaint: abdominal pain Pertinent past history: other (Previous exploratory lap which resulted in an appendectomy.) Onset (ago): hour(s) Pain Consistency: constant Location: Diffuse Severity: severe Quality: cramping Radiation: none Migration to: no migration Exacerbating factors: movement Relieving factors: rest Associated Symptoms: Reports anorexia, bloating, GI cramping, nausea, poor appetite and vomiting; Denies chills, dysuria, fever(s), hematochezia, hematemesis, fecal incontinence and loose stools Review of Systems Const: Denies: fever(s), chills, body aches, change in appetite, fatigue or malaise ENMT: Denies: throat pain, ear or mastoid pain, nasal discharge or nasal congestion Card: Denies: chest pain, edema, dyspnea on exertion or orthopnea Resp: Denies: dyspnea, productive cough or non-productive cough GI: Reports: abdominal pain, nausea, vomiting, bloating and GI cramping; Denies: hematemesis, fecal incontinence or hematochezia : Denies: flank pain, dysuria, urinary frequency or urinary urgency Skin/Breast: Denies: rash or pruritus PFSH ED PFSH: Medical History (Updated 03/19/20 @ 16:36 by CANDE Post) Amphetamine dependence, in remission early remission, 3 months Last use September 2019 Generalized anxiety disorder Major depressive disorder, recurrent severe without psychotic features Nicotine dependence, cigarettes, uncomplicated Surgical History (Updated 03/19/20 @ 15:08 by Eloise Ware APRN) History of appendectomy Status post placement of VNS (vagus nerve stimulation) device 2007 [place] VNS placement Family History (Updated 03/15/20 @ 10:07 by Jo Ann Aguilar LPN) Grandfather CAD (coronary artery disease) Hypertension Grandmother Cancer Stroke Social History (Updated 03/15/20 @ 10:08 by Jo Ann Aguilar LPN) Smoking and tobacco status: current every day smoker cigarettes Packs smoked per day: 1 Alcohol intake: never Household members: significant other Marital status: Single Current occupational status: disabled History of recent travel: No Physical Exam Const: COMMON NORMALS: no acute distress GENERAL APPEARANCE: cooperative and comfortable ORIENTATION/CONSCIOUSNESS: Yes awake, Yes oriented to person, Yes oriented to place and Yes oriented to time Eye: COMMON NORMALS: Equal, round and reactive pupils present, EOMs intact bilaterally, conjunctivae normal and no scleral icterus CONJUNCTIVA: Yes conjunctivae normal PUPIL: Yes Equal, round and reactive pupils present Neck/C-Spine: COMMON NORMALS: full ROM, no lymphadenopathy, supple and no JVD Lymph: LYMPHATIC: no lymphadenopathy noted and no lymphedema noted Resp: COMMON NORMALS: normal respiratory effort, No retractions, No use of accessory muscles and clear to auscultation bilaterally AUSCULTATION: clear to auscultation bilaterally Cardio: COMMON NORMALS: no JVD, regular rate, regular rhythm and No murmurs present (Cardio) RATE: regular rate RHYTHM: regular rhythm GI: AUSCULTATION: Yes Absent bowel sounds PALPATION: Yes Tenderness to palpation present (GI) (Diffuse), Yes Guarding due to palpation present (GI) and Yes Rigid due to palpation Extremity: COMMON NORMALS: normal to inspection, capillary refill normal, no clubbing, cyanosis or edema, no calf tenderness and no pedal edema Neuro: SENSORIUM/ORIENTATION: Yes oriented to person, Yes oriented to place and Yes oriented to time Skin: COMMON NORMALS: no rashes or lesions noted GENERAL SKIN EXAM: no rashes or lesions noted Course Vital Signs: Vital signs: Vital Signs Temperature 97.5 F L 03/19/20 13:30 Pulse Rate 57 L 03/19/20 13:35 Respiratory Rate 14 03/19/20 17:24 Blood Pressure 134/87 03/19/20 13:30 Pulse Oximetry 97 03/19/20 13:35 MDM - Abdominal Pain MDM Narrative: Medical decision making narrative: Wong with Dr. Johnson and Dr. Mijares. Will admit to Dr. Victoria is NG placed IV fluids pain control. Given his history of seizures Dr. Lopez will follow him for medical management as well. Lab Data: Labs: Lab Results 03/19/20 03/19/20 03/19/20 Range/Units 14:00 14:00 14:00 WBC 13.0 H (4.0-10.0) 10^3/ uL RBC 5.64 H (4.1-5.3) 10^6/u L Hgb 16.8 H (11.7-16.6) g/dL Hct 49.6 (42.0-52.0) % MCV 87.9 (80-94) fL MCH 29.8 (28.0-34.0) pg MCHC 33.9 (30.0-36.0) g/dL RDW 12.5 (12.1-15.1) % Plt Count 326 (130-400) 10^3/c mm MPV 9.5 (7.4-10.4) fL Neut % (Auto) 81.4 % Lymph % (Auto) 11.3 % [place] % (Auto) 6.6 % Eos % (Auto) 0.2 % Baso % (Auto) 0.3 % Neut # (Auto) 10.6 H (1.8-7.7) 10^3/u L Lymph # (Auto) 1.5 (0.8-4.8) 10^3/u L [place] # (Auto) 0.9 (0.2-0.9) 10^3/u L Eos # (Auto) 0.0 (0.0-0.8) 10^3/u L Baso # (Auto) 0.0 (0.0-0.1) 10^3/u L Nucleated RBC % (a uto) 0 % Nucleated RBCs # 0.0 /100WBC Sodium (136-145) mmol/L Potassium (3.5-5.1) mmol/L Chloride (98-107) mmol/L Carbon Dioxide (22-29) mmol/L Anion Gap (5-19) BUN (6-20) mg/dL Creatinine (0.7-1.2) mg/dL GFR Calculation (90-130) mL/min Glucose (65-115) mg/dL Calculated Osmolal ity (285-295) mOsm/k g Lactate (0.5-2.2) mmol/L Calcium (8.5-10.5) mg/dL Total Bilirubin (0.15-1.2) mg/dL AST (0-40) U/L ALT (0-41) U/L Alkaline Phosphata se (40-130) IU/L Total Protein (6.6-8.7) g/dL Albumin (3.5-5.2) g/dL Globulin (1.3-4.6) g/dL Lipase (13-60) U/L Urine Color Dark yellow (Yellow) Urine Appearance Clear (CLEAR) Urine pH 9 H (5-7) Ur Specific Gravit y 1.015 (1.005-1.030) Urine Protein Neg (Negative) Urine Glucose (UA) Norm (Normal) Urine Ketones 1+ H (Negative) Urine Blood Neg (Negative) Urine Nitrate Negative (Negative) Urine Bilirubin Neg (NEGATIVE) Prot Sulfosalicyli c Acd Negative (Negative) Urine Urobilinogen Norm (Negative) mg/dL Ur Leukocyte Kate ase Negative (Negative) Urine Opiates Scre en Negative (Negative) ng/mL Ur Barbiturates Sc reen Negative (Negative) ng/mL Ur Phencyclidine S crn Negative (Negative) ng/mL Ur Amphetamines Sc reen Negative (Negative) ng/mL U Benzodiazepines Scrn Negative (Negative) ng/mL Urine Cocaine Scre en Negative (Negative) ng/mL U Marijuana (THC) Screen Positive H (Negative) ng/mL 03/19/20 03/19/20 Range/Units 14:05 16:17 WBC (4.0-10.0) 10^3/ uL RBC (4.1-5.3) 10^6/u L Hgb (11.7-16.6) g/dL Hct (42.0-52.0) % MCV (80-94) fL MCH (28.0-34.0) pg MCHC (30.0-36.0) g/dL RDW (12.1-15.1) % Plt Count (130-400) 10^3/c mm MPV (7.4-10.4) fL Neut % (Auto) % Lymph % (Auto) % [place] % (Auto) % Eos % (Auto) % Baso % (Auto) % Neut # (Auto) (1.8-7.7) 10^3/u L Lymph # (Auto) (0.8-4.8) 10^3/u L [place] # (Auto) (0.2-0.9) 10^3/u L Eos # (Auto) (0.0-0.8) 10^3/u L Baso # (Auto) (0.0-0.1) 10^3/u L Nucleated RBC % (a uto) % Nucleated RBCs # /100WBC Sodium 140 (136-145) mmol/L Potassium 4.0 (3.5-5.1) mmol/L Chloride 100 (98-107) mmol/L Carbon Dioxide 26 (22-29) mmol/L Anion Gap 18.0 (5-19) BUN 10 (6-20) mg/dL Creatinine 1.1 (0.7-1.2) mg/dL GFR Calculation 72.1 L (90-130) mL/min Glucose 119 H (65-115) mg/dL Calculated Osmolal ity 287 (285-295) mOsm/k g Lactate 0.9 (0.5-2.2) mmol/L Calcium 10.4 (8.5-10.5) mg/dL Total Bilirubin 0.6 (0.15-1.2) mg/dL AST 17 (0-40) U/L ALT 16 (0-41) U/L Alkaline Phosphata se 106 (40-130) IU/L Total Protein 7.2 (6.6-8.7) g/dL Albumin 4.7 (3.5-5.2) g/dL Globulin 2.5 (1.3-4.6) g/dL Lipase 17 (13-60) U/L Urine Color (Yellow) Urine Appearance (CLEAR) Urine pH (5-7) Ur Specific Gravit y (1.005-1.030) Urine Protein (Negative) Urine Glucose (UA) (Normal) Urine Ketones (Negative) Urine Blood (Negative) Urine Nitrate (Negative) Urine Bilirubin (NEGATIVE) Prot Sulfosalicyli c Acd (Negative) Urine Urobilinogen (Negative) mg/dL Ur Leukocyte Kate ase (Negative) Urine Opiates Scre en (Negative) ng/mL Ur Barbiturates Sc reen (Negative) ng/mL Ur Phencyclidine S crn (Negative) ng/mL Ur Amphetamines Sc reen (Negative) ng/mL U Benzodiazepines Scrn (Negative) ng/mL Urine Cocaine Scre en (Negative) ng/mL U Marijuana (THC) Screen (Negative) ng/mL Discharge Plan Discharge Patient Disposition: Admitted As Inpatient Admit Provider: Zion David Clinical Impression: SBO (small bowel obstruction) Condition: Stable Referrals: Melonie Lyman MD [Primary Care Provider] - Sign Out Sign Out Data: Patient Sign Out occurred on 03/19/20 at 17:10. Patient's care was discussed, and care was transferred from to Saji Melton DO. Coding Level of Care Code ED Child Care Lead Teacher for Chg Fwd Exam Comprehensive
--- NOTE | 2020-03-19 13:41 | CT_ITS ---
WS: [id number] CT ABDOMEN AND PELVIS WITH CONTRAST HISTORY: abdominal pain, N/V TECHNIQUE: Imaging performed of the abdomen and pelvis with IV contrast. Single phase imaging of the abdomen. Coronal and sagittal reformats are submitted. All CT scans at [facility] use at least one of these dose optimization techniques: automated exposure control; mA and/or kV adjustment per patient size (includes targeted exams where dose is matched to clinical indication); or iterativ e reconstruction. IV CONTRAST: Omnipaque 300; 95 mL IV. Oral contrast: No DLP: 555.61 mGy.cm COMPARISON: 12/01/2018 Lower thorax: Lung bases are hyperexpanded. Minimal atelectasis at the RIGHT lung base. Heart is norm al size. Small hiatal hernia. Liver/biliary system: Normal size with no intrahepatic dilatation. Gallbladder: Normal. No gallstones or wall thickening. No pericholecystic fluid. Pancreas: Normal. Spleen: Small amount of fluid adjacent to the spleen. New since 12/01/2018. Adrenal glands: Normal. Right kidney: Normal. Left kidney: Subcentimeter cortical cyst mid kidney. Aorta: Normal. Lymphadenopathy: None. Free fluid: There is a small amount of fluid adjacent to the spleen and also within the pelvis and al isaak the RIGHT paracolic gutter. GI tract: Marked dilatation of proximal and mid small bowel. Loops measure up to 6 cm in diameter. Ch smooth in caliber of the small bowel loops in the distal jejunum. There is tethering in the central pel vis and this is probably the area of the obstruction due to change in caliber. Ileum is also abnormal with diffuse circumferential thickening. Prior appendectomy. Stomach is distended. Mild mucosal thic kening involving the duodenal C-loop. Abdominal wall: Unremarkable abdominal wall. No hernia. Pelvis: Small amount of free fluid in the pelvis. Urinary bladder is minimally distended. Bones: Subchondral cystic changes in the RIGHT femoral head. Unilateral LEFT pars defect at L5 or S1. CT/CT abdomen pelvis w con* [id number] IMPRESSION: 1. High-grade small bowel obstruction. Change of caliber in the mid to distal small bowel. 2. Distal small bowel at the terminal ileum is also abnormal suggesting possib ility of Crohn's disease. 3. Small amount of free fluid around the spleen and within the pelvis. 4. Prior appendectomy.
[2020-03-19] MEDS: morphine 4 mg/mL SDV 1 mL IVP ×3 (14:05→22:09)
[2020-03-19] MEDS: ondansetron 2 mg/ML SDV 2 mL 4 MG IVP (14:06)
[2020-03-19 14:10] LABS: Basophils % 0.3 %; Eosinophils % 0.2 %; Hematocrit 49.6 % (42.0-52.0); Hemoglobin 16.8 g/dL (11.7-16.6); Lymphocytes # 1.5 10^3/uL (0.8-4.8); Lymphocytes % 11.3 %; Mean Corpuscular HGB Conc 33.9 g/dL (30.0-36.0); Mean Corpuscular Hemoglobin 29.8 pg (28.0-34.0); Mean Corpuscular Volume 87.9 fL (80-94); Mean Platelet Volume 9.5 fL (7.4-10.4); Monocytes # 0.9 10^3/uL (0.2-0.9); Monocytes % 6.6 %; Neutrophils # 10.6 10^3/uL (1.8-7.7); Neutrophils % 81.4 %; Nucleated Red Blood Cells % 0 %; Platelet Count 326 10^3/cmm (130-400); Red Blood Count 5.64 10^6/uL (4.1-5.3); Red Cell Distribution Width 12.5 % (12.1-15.1)
[2020-03-19 14:12] LABS: Add Urine Microscopic? NO
[2020-03-19 14:25] LABS: Alanine Aminotransferase 16 U/L (0-41); Albumin Level 4.7 g/dL (3.5-5.2); Alkaline Phosphatase 106 IU/L (40-130); Aspartate Amino Transferase 17 U/L (0-40); Blood Urea Nitrogen 10 mg/dL (6-20); Calcium 10.4 mg/dL (8.5-10.5); Carbon Dioxide 26 mmol/L (22-29); Chloride 100 mmol/L (98-107); Globulin 2.5 g/dL (1.3-4.6); Glomerular Filtration Rate 72.1 mL/min (90-130); Glucose 119 mg/dL (65-115); Lipase 17 U/L (13-60); Osmolality Calculated 287 mOsm/kg (285-295); Sodium 140 mmol/L (136-145); Total Bilirubin 0.6 mg/dL (0.15-1.2); Total Protein 7.2 g/dL (6.6-8.7)
[2020-03-19 14:33] LABS: Bilirubin Urine Neg (NEGATIVE); Blood Urine Neg (Negative); Glucose Urine UA Norm (Normal); Ketones Urine 1+ (Negative); Leukocyte Esterase Urine Negative (Negative); Nitrate Urine Negative (Negative); Protein Urine Neg (Negative); Specific Gravity, Urine 1.015 (1.005-1.030); Sulfosalicylic Acid Urine Negative (Negative); Urine Appearance Clear (CLEAR); Urine Color Dark Yellow (Yellow); Urobilinogen Urine Norm (Negative); pH Urine 9 (5-7)
[2020-03-19 14:34] LABS: Amphetamines Screen Urine Negative (Negative); Barbiturates Screen Urine Negative (Negative); Benzodiazepines Screen Urine Negative (Negative); Cocaine Screen Urine Negative (Negative); Opiate Screen Urine Negative (Negative); PCP Screen Urine Negative (Negative); THC Screen Urine Positive (Negative)
[2020-03-19] MEDS: iohexol 300 mg/mL 100 mL Btl IV (15:41)
--- NOTE | 2020-03-19 15:43 | PC.NURSE ---
Called to the patient's room. He would like to know who told his father that he is positive for methamphetamine. I advised the patient that his healthcare record is confidential and that no one here called to speak with his father.
[2020-03-19 16:36] LABS: Lactate (Lactic Acid level) 0.9 mmol/L (0.5-2.2)
[2020-03-19] MEDS: cetacaine Spray 5 gm Can 1 SPRAY TOPICAL (17:23)
[2020-03-19] MEDS: LORazepam 2 mg/mL INJ 1 mL 1 MG IVP (17:24)
--- NOTE | 2020-03-19 17:43 | P.HP_ITS ---
Providers/Chief Complaint Primary Care Provider: Melonie Lyman MD Chief Complaint: ABD PAIN History of Present Illness Chief Complaint: Abdominal pain History of present illness: Petar Stone is a 44 year old male presents to the emergency department with worsening abdominal pain over the past 15 hours per his description, pain is mostly diffuse dull aching in nature nothing seems to make it better or worse at this point, patient reports previous exploratory laparotomy for appendicitis and he was never hospitalized before for bowel obstruction. Last time patient had a bowel movement and pass gas was about 3 days ago, he denies any fevers or chills at this point CT scan of the abdomen and pelvis showed IMPRESSION: 1. High-grade small bowel obstruction. Change of caliber in the mid to distal small bowel. 2. Distal small bowel at the terminal ileum is also abnormal suggesting possibility of Crohn's disease. 3. Small amount of free fluid around the spleen and within the pelvis. 4. Prior appendectomy. Patient was seen and evaluated in the emergency department Room 16. Review of Systems General: Reports: 10 or more systems reviewed and unremarkable except in HPI and below Medications/Allergies Home Medications Medication Instructions Recorded Confirmed Last Taken Type citalopram 20 mg tablet 20 mg PO .morning #30 tab 03/02/20 03/19/20 03/18/20 Rx melatonin 3 mg capsule 3 mg PO .bedtime PRN #30 cap 03/02/20 03/19/20 03/18/20 Rx lamotrigine 150 mg tablet 150 mg PO BID #60 tab 03/07/20 03/19/20 03/19/20 Rx levetiracetam 750 mg 1,500 mg PO DAILY #60 tab 03/07/20 03/19/20 03/19/20 Rx tablet,extended release 24 hr Allergies Allergy/AdvReac Type Severity Reaction Status Date / Time No Known Allergies Allergy Verified 03/19/20 17:43 PFSH Acute PFSH: Medical History (Updated 03/19/20 @ 18:27 by Leonid Lopez MD) Amphetamine dependence, in remission early remission, 3 months Last use September 2019 Generalized anxiety disorder Major depressive disorder, recurrent severe without psychotic features Nicotine dependence, cigarettes, uncomplicated Surgical History (Updated 03/19/20 @ 15:08 by Eloise Ware APRN) History of appendectomy Status post placement of VNS (vagus nerve stimulation) device 2007 [place], [place] VNS placement Family History (Updated 03/15/20 @ 10:07 by Jo Ann Aguilar LPN) Grandfather CAD (coronary artery disease) Hypertension Grandmother Cancer Stroke Social History (Updated 03/15/20 @ 10:08 by Jo Ann Aguilar LPN) Smoking and tobacco status: current every day smoker cigarettes Packs smoked per day: 1 Alcohol intake: never Household members: significant other Marital status: Single Current occupational status: disabled History of recent travel: No Vitals/I&O/Wt Last Vital Signs Temp 97.5 F L 03/19/20 13:30 Pulse 57 L 03/19/20 13:35 Resp 14 03/19/20 17:24 BP 134/87 03/19/20 13:30 Pulse Ox 97 03/19/20 13:35 Weight last 48 hrs Weight 165 lb Physical Exam 2 Narrative: EXAM NARRATIVE: Patient is conscious alert oriented X3 BMI 25 Head and neck examination PERRLA no masses no cervical lymphadenopathy no jaundice NG in place with gastric content Cardiac examination audible S1-S2 no murmurs no gallops no arrhythmias Chest is clear bilateral,abscence of Rhonchi or wheezes,no surgical emphysema Abdomen nontender except mildly toward the left side nondistended soft no organomegaly guarding or rigidity/no signs of peritonitis Lower midline scar is appreciated Extremities no cyanosis no clubbing no edema Data : 03/20/20 02:51 03/20/20 02:51 A&P Assessment and plan (1) SBO (small bowel obstruction): After thorough history physical examination and reviewing the chart and images with my personal interpretation, patient does have equalization of the small bowel. NG to low intermittent wall Repeated physical examination Appropriate IV fluid hydration Strict I's and O's Repeat labs in the AM I do appreciate Dr. Sultana's input with regard to patient's medical comorbidities particularly the epilepsy. Status: Acute Attestations Medical Necessity Statement*: Medical necessity care is expected to cross 2 midnights Time Spent in Patient Care: (>than 50% of time spent in counselling and/or direct pt care on unit) . Coding Level of Care Code Acute Rubber Ball Finisher for [facility] Fwd Diagnoses SBO (small bowel obstruction) K56.609
--- NOTE | 2020-03-19 18:09 | XRR_ITS ---
PROCEDURE INFORMATION: Exam: XR Chest, 1 View Exam date and time: 03/19/2020 6:32 PM Age: 44 years old Clinical indication: Device placement; Ng tube; Prior surgery; Surgery type: Stimulator; Additional info: Ng placement TECHNIQUE: Imaging protocol: XR of the chest Views: 1 view. COMPARISON: CR XR chest 1V portable [id number] 01/15/2020 4:42 AM FINDINGS: Tubes, catheters and devices: Neural stimulator overlies the left upper lobe Nasogastric tube extends slightly below the diaphragm with the tip projecting over the body of the stomach. Lungs: Lungs are well aerated without a focal area of consolidation. Pleural space: Unremarkable. No pleural effusion. No pneumothorax. Heart/Mediastinum: Unremarkable. No cardiomegaly. Bones/joints: Unremarkable. XR/XR chest 1V portable [id number] IMPRESSION: Lungs are well aerated without a focal area of consolidation.
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
[2020-03-19] MEDS: D5-NS 0.45% + KCL 20 mEq 20 MEQ/1,000 ML BAG 100 MEQ IV (20:23)
[2020-03-19 20:33] LABS: Hepatitis A Antibody IgM Non-Reactive (Nonreactive); Hepatitis B Core IgM Non-Reactive (Nonreactive); Hepatitis B Surface Antigen Non-Reactive (Nonreactive); Hepatitis C Virus Antibody Reactive (Nonreactive)
[2020-03-19 20:47] LABS: Alcohol Level < 10 mg/dL (0-10)
[2020-03-19 21:39] LABS: HIV 1 & 2 Antibody Non-Reactive (Non-Reactiv); HIV 1 & 2 Antigen Non-Reactive (Non-Reactiv)
[2020-03-20] VITALS (11 sets, daily range): BP systolic 108–127; BP diastolic 67–80; PULSE 58–72; RESP 16–22; TEMP 36.5–37.1; O2SAT 94–96
[2020-03-20 03:26] LABS: Basophils % 0.2 %; Eosinophils # 0.1 10^3/uL (0.0-0.8); Eosinophils % 1.4 %; Hematocrit 47.9 % (42.0-52.0); Lymphocytes % 20.9 %; Mean Corpuscular HGB Conc 33.4 g/dL (30.0-36.0); Mean Corpuscular Hemoglobin 30.2 pg (28.0-34.0); Mean Corpuscular Volume 90.4 fL (80-94); Mean Platelet Volume 10.1 fL (7.4-10.4); Monocytes # 0.9 10^3/uL (0.2-0.9); Monocytes % 9.3 %; Neutrophils # 6.6 10^3/uL (1.8-7.7); Nucleated Red Blood Cells % 0 %; Platelet Count 286 10^3/cmm (130-400); Red Cell Distribution Width 12.9 % (12.1-15.1); White Blood Count 9.7 10^3/uL (4.0-10.0)
[2020-03-20 03:45] LABS: Magnesium 1.9 mg/dL (1.7-2.3)
[2020-03-20 03:46] LABS: Alanine Aminotransferase 12 U/L (0-41); Albumin Level 4.2 g/dL (3.5-5.2); Alkaline Phosphatase 100 IU/L (40-130); Anion Gap 13.5 (5-19); Aspartate Amino Transferase 14 U/L (0-40); Blood Urea Nitrogen 10 mg/dL (6-20); Calcium 9.6 mg/dL (8.5-10.5); Carbon Dioxide 27 mmol/L (22-29); Chloride 103 mmol/L (98-107); Globulin 2.8 g/dL (1.3-4.6); Glomerular Filtration Rate 80.4 mL/min (90-130); Glucose 126 mg/dL (65-115); Osmolality Calculated 286 mOsm/kg (285-295); Phosphorus 4.7 mg/dL (2.5-4.5); Potassium 4.5 mmol/L (3.5-5.1); Sodium 139 mmol/L (136-145); Total Bilirubin 0.7 mg/dL (0.15-1.2)
[2020-03-20] MEDS: morphine 4 mg/mL SDV 1 mL IVP ×4 (03:57→20:58)
[2020-03-20 04:01] LABS: INR 0.91 (0.8-1.2)
--- NOTE | 2020-03-20 05:43 | P.PN_ITS ---
Subjective Subjective: Interval history: Patient overall feels better NG output 300 mL Patient reports no passage of gas or stool yet Vitals/I&O/Wt Last Vital Signs Temp 97.7 F 03/20/20 04:00 Pulse 72 03/20/20 04:00 Resp 18 03/20/20 04:00 BP 124/71 03/20/20 04:00 Pulse Ox 95 03/20/20 04:00 03/19/20 03/19/20 03/20/20 14:59 22:59 06:59 Intake Total 0 / 0 120 / 120 Output Total 500 / 500 Balance 0 / 0 -380 / -380 Weight last 48 hrs Weight 165 lb Physical Exam Narrative: EXAM NARRATIVE: Patient is conscious alert oriented X3 BMI 25 Head and neck examination PERRLA no masses no cervical lymphadenopathy no jaundice NG in place Cardiac examination audible S1-S2 no murmurs no gallops no arrhythmias Chest is clear bilateral,abscence of Rhonchi or wheezes,no surgical emphysema Abdomen nontender except slightly at the left side of the nondistended soft no organomegaly guarding or rigidity/no signs of peritonitis Extremities no cyanosis no clubbing no edema Data : 03/20/20 02:51 03/20/20 02:51 A&P Assessment and plan (1) SBO (small bowel obstruction): Encourage ambulation NG to low intermittent wall/flush NG tube with 50 mL of saline every 8 hours as needed Repeated physical examination Appropriate IV fluid hydration Strict I's and O's Will follow on the KUB I do appreciate Dr. Sultana's input with regard to patient's medical comorbidities particularly the epilepsy. Status: Acute Attestations Medical Necessity Statement*: Medical necessity care is expected to cross 2 midnights Time Spent in Patient Care: (>than 50% of time spent in counselling and/or direct pt care on unit) . Coding Level of Care Code Acute Carrier Packer for [facility] Fwd Diagnoses SBO (small bowel obstruction) K56.609
--- NOTE | 2020-03-20 05:53 | PC.NURSE ---
DR. ROLLE ON FLOOR FOR MORNING ROUNDS. PATIENT DENIES ANY NEEDS AT THIS TIME. VERBAL ORDERS GIVEN TO D/C D5 AND BEGIN LR AT 150ML/HOUR. ORDERS UPDATED IN CHART.
[2020-03-20] MEDS: lactated ringers 1,000 ML 150 ML IV (06:06)
--- NOTE | 2020-03-20 06:22 | XRR_ITS ---
PROCEDURE INFORMATION: Exam: XR Abdomen, 1 View Exam date and time: 03/20/2020 6:44 AM Age: 44 years old Clinical indication: Condition or disease; Intestinal condition; Obstruction; Prior surgery; Additional info: Bowel obstruction TECHNIQUE: Imaging protocol: XR of the abdomen. Views: Frontal supine view of the abdomen. 1 View. COMPARISON: CT abdomen pelvis w con* [id number] 03/19/2020 3:32 PM FINDINGS: Tubes, catheters and devices: Nasogastric tube extends slightly below the diaphragm with the tip projecting over the body of the stomach. Gastrointestinal tract: Numerous loops of air filled small bowel within the mid and left upper abdomen in a rather staircase configuration suggestive of at least a partial small bowel obstruction. Air and stool within the large bowel. Bones/joints: Unremarkable. XR/XR KUB [id number] IMPRESSION: Numerous loops of air filled small bowel within the mid and left upper abdomen in a rather staircase configuration suggestive of at least a partial small bowel obstruction.
[2020-03-20] MEDS: lamoTRIgine 100 mg Tablet 150 MG PO ×2 (10:01→18:11)
--- NOTE | 2020-03-20 12:02 | PC.CHAP ---
Pastoral Care Encounter/Spiritual Assessment Type of Contact [x] Declined religion teacher visit [] Patient/Family/Request visit [] Outpatient visit [] Follow-up visit [] Physician referral [] Code/Alert [] Routine visit [] Staff referral [] Actively dying [] Patient sleeping [] Family support [] [] Out of room [] Palliative care [] [] Receiving care in room [] Pre-surgical visit [] Trauma [] Long length of stay [] ICU visit [] Other: Relational/Emotional Strength [] Patient feels connected with others/family/visitors/staff [] Distress [] Loneliness/isolation [] Abandonment Spirituality of Patient [] Person of Any [] Attends Jain of their Any [] Believes in Prayer [] Reads Bible or Confucianist materials [] There are Spiritual issues to be addressed Spiral Gear Generator Interventions [] Prayer [] Active listening [] Non-anxious presence [] Spiritual/emotional support [] Crisis/trauma care [] Spiritual counseling [] Bereavement support [] Provided bereavement packet [] Provided Bible/devotional materials [] Provided toy/stuffed animal, coloring book to patient or family member [] Provided Communion [] Anointing/[place] [] Salvation [] Completed spiritual assessment [] Other: Impact on Illness or Injury [] Angry [] Fearful [] Anxious [] Often cries [] Exhaustion [] Unable to work [] Unable to attend presybeterian [] Unable to walk/stand [] Unable to read [] Unable to drive [] Unable to eat/drink [] Unable to sleep [] Unable to be with family [] Patient intubated [] Other: Summary Declined religion teacher visit Time spent with patient 5 mins
[2020-03-20] MEDS: levETIRAcetam 500 mg Tablet 750 MG PO ×2 (13:27→21:31)
--- NOTE | 2020-03-20 13:40 | P.PN_ITS ---
Subjective Subjective: Interval history: Overnight patient states that he has not had a bowel movement, not passing gas, no vomiting episodes still feels nauseous, no fevers, no chills, abdomen drier and pulverizer tender and slightly distended, wondering when he will have a chance to drink something Vitals/I&O/Wt Last Vital Signs Temp 98.2 F 03/20/20 11:12 Pulse 61 03/20/20 11:12 Resp 20 H 03/20/20 11:12 BP 116/70 03/20/20 11:12 Pulse Ox 94 03/20/20 11:12 03/19/20 03/20/20 03/20/20 22:59 06:59 14:59 Intake Total 0 / 0 120 / 120 Output Total 500 / 500 Balance 0 / 0 -380 / -380 Weight last 48 hrs Weight 74.843 kg Physical Exam Const: COMMON NORMALS: no acute distress and patient oriented x3 HENMT: COMMON NORMALS: normocephalic HEAD & SCALP: normocephalic Neck/C-Spine: COMMON NORMALS: no JVD Resp: COMMON NORMALS: normal respiratory effort, No retractions, No use of accessory muscles and clear to auscultation bilaterally AUSCULTATION: clear to auscultation bilaterally Cardio: COMMON NORMALS: no JVD, regular rate, regular rhythm, S1 normal heart sound present and S2 normal heart sound present RATE: regular rate RHYTHM: regular rhythm HEART SOUNDS: S1 normal heart sound present and S2 normal heart sound present GI: INSPECTION: Yes abdominal distension AUSCULTATION: Yes Hypoactive bowel sounds present PALPATION: Yes Tenderness to palpation present (GI) (generalized) PERCUSSION: normal to percussion Extremity: COMMON NORMALS: capillary refill normal, no clubbing, cyanosis or edema, no calf tenderness and no pedal edema Neuro: COMMON NORMALS: patient oriented x3 Psych: COMMON NORMALS: mental status grossly normal Data : 03/20/20 02:51 03/20/20 02:51 A&P Assessment and plan (1) SBO (small bowel obstruction): -Continue n.p.o. -NG tube in place -IV hydration -Pain control -Heparin and SCDs for DVT prophylaxis -Surgery is on consult, appreciate input Status: Acute (2) Epilepsy: -With vagal nerve stimulator in place -On Lamictal 150 mg twice daily -Keppra 1500 p.o. daily Status: Acute (3) Status post placement of VNS (vagus nerve stimulation) device: Status: Acute (4) Amphetamine dependence, continuous: Status: Acute (5) Major depressive disorder, recurrent severe without psychotic features: Status: Chronic (6) Generalized anxiety disorder: Status: Chronic Attestations Medical Necessity Statement*: Patient requires continued hospitalization due to high-grade small bowel obstruction Coding Level of Care Code Acute Wafer Machine Operator for [facility] Diagnoses SBO (small bowel obstruction) K56.609 Epilepsy G40.909 Status post placement of VNS (vagus nerve stimulation) device Z96.89 Amphetamine dependence, continuous F15.20 Major depressive disorder, recurrent severe without psychotic features F33.2 Generalized anxiety disorder F41.1
[2020-03-20] MEDS: heparin 5,000 unit/mL INJ 1 mL 5000 UNIT SUBCUT (14:51)
[2020-03-20] MEDS: lactated ringers 1,000 ML 125 ML IV ×2 (14:52→21:32)
[2020-03-20] MEDS: lactated ringers 1,000 ML 999 ML IV (17:10)
--- NOTE | 2020-03-20 19:38 | PC.NURSE ---
Patient given milk and molasses enema per physician order. Small formed bm. Patient voices some relief from previous abdominal discomfort.
[2020-03-21] VITALS (8 sets, daily range): BP systolic 120–182; BP diastolic 64–80; PULSE 59–70; RESP 16–18; TEMP 36.7–36.9; O2SAT 94–96
[2020-03-21] MEDS: morphine 4 mg/mL SDV 1 mL IVP ×2 (02:11→07:41)
[2020-03-21 05:28] LABS: Basophils % 0.3 %; Eosinophils # 0.1 10^3/uL (0.0-0.8); Eosinophils % 1.4 %; Hematocrit 42.2 % (42.0-52.0); Hemoglobin 13.9 g/dL (11.7-16.6); Lymphocytes # 1.5 10^3/uL (0.8-4.8); Mean Corpuscular HGB Conc 32.9 g/dL (30.0-36.0); Mean Corpuscular Hemoglobin 30.2 pg (28.0-34.0); Mean Corpuscular Volume 91.7 fL (80-94); Mean Platelet Volume 10.4 fL (7.4-10.4); Monocytes # 0.6 10^3/uL (0.2-0.9); Monocytes % 7.7 %; Neutrophils # 5.5 10^3/uL (1.8-7.7); Neutrophils % 71.5 %; Nucleated Red Blood Cells % 0 %; Platelet Count 238 10^3/cmm (130-400); Red Cell Distribution Width 12.4 % (12.1-15.1); White Blood Count 7.6 10^3/uL (4.0-10.0)
--- NOTE | 2020-03-21 05:46 | PM.PN ---
Subjective Subjective: Interval history: Patient overall feels better and passing gas and had a bowel movement after the milk of molasses enema Less NG output Better urine output Vitals/I&O/Wt Last Vital Signs Temp 98.2 F 03/21/20 00:00 Pulse 59 L 03/21/20 00:00 Resp 16 03/21/20 02:11 BP 120/75 03/21/20 00:00 Pulse Ox 96 03/21/20 00:00 03/20/20 03/20/20 03/21/20 14:59 22:59 06:59 Intake Total 833.333 / 833.333 Balance 833.333 / 833.333 Weight last 48 hrs Weight 165 lb Physical Exam Narrative: EXAM NARRATIVE: Patient is conscious alert oriented X3 BMI 25 Head and neck examination PERRLA no masses no cervical lymphadenopathy no jaundice Cardiac examination audible S1-S2 no murmurs no gallops no arrhythmias Chest is clear bilateral,abscence of Rhonchi or wheezes,no surgical emphysema Abdomen nontender nondistended soft no organomegaly guarding or rigidity/no signs of peritonitis Extremities no cyanosis no clubbing no edema Data : 03/21/20 04:35 03/21/20 04:35 A&P Assessment and plan (1) SBO (small bowel obstruction): We will plan to clamp NG tube for 2 hours and then check residuals if less than 200 mL will DC NG tube and start the patient slowly on clear liquid diet. Encourage ambulation Incentive spirometer every hour We will continue coordinating with hospitalist service. Assurance and education All questions have been answered and all concerns have been addressed to patient's satisfaction. Status: Resolved Attestations Medical Necessity Statement*: Medical necessity care is expected to cross 2 midnights Time Spent in Patient Care: (>than 50% of time spent in counselling and/or direct pt care on unit). Coding Level of Care Code Acute Area Loss Prevention Manager for [facility] Fwd Diagnoses SBO (small bowel obstruction) K56.609
[2020-03-21 06:00] LABS: Alanine Aminotransferase 9 U/L (0-41); Albumin Level 3.5 g/dL (3.5-5.2); Alkaline Phosphatase 77 IU/L (40-130); Anion Gap 16.7 (5-19); Aspartate Amino Transferase 11 U/L (0-40); Blood Urea Nitrogen 10 mg/dL (6-20); Carbon Dioxide 25 mmol/L (22-29); Chloride 101 mmol/L (98-107); Globulin 2.7 g/dL (1.3-4.6); Glomerular Filtration Rate 90.8 mL/min (90-130); Glucose 82 mg/dL (65-115); Osmolality Calculated 283 mOsm/kg (285-295); Potassium 3.7 mmol/L (3.5-5.1); Sodium 139 mmol/L (136-145); Total Bilirubin 0.8 mg/dL (0.15-1.2); Total Protein 6.2 g/dL (6.6-8.7)
[2020-03-21 06:05] LABS: Magnesium 1.6 mg/dL (1.7-2.3); Phosphorus 3.4 mg/dL (2.5-4.5)
--- NOTE | 2020-03-21 07:30 | PC.NURSE ---
Patient accidentally pulled his NG tube out this morning before I was able to check residual. Patient denies any nausea and patient requests not to have NG tube replaced. Patient is passing gas and has active bowel sounds. Patient requests to move forward with the clear liquid diet.
[2020-03-21] MEDS: lactated ringers 1,000 ML 125 ML IV (07:46)
[2020-03-21] MEDS: lamoTRIgine 100 mg Tablet 150 MG PO (08:43)
[2020-03-21] MEDS: levETIRAcetam 500 mg Tablet 750 MG PO (08:43)
--- NOTE | 2020-03-21 11:29 | PC.NURSE ---
Patient requesting to go home. Patient states, I want to go home and see my kids and girlfriend. Contacted Dr. David at this time who stated he is coming to the floor to see the patient.
--- NOTE | 2020-03-21 11:53 | PM.DCS ---
Discharge Providers Date of Admission: 03/19/20 16:51 Date of Discharge: March 21, 2020 Attending Provider at Admission: Zion David MD Attending Provider at Discharge: Zion David MD Primary Care Provider: Melonie Lyman MD Diagnoses at Discharge Discharge Diagnosis (1) SBO (small bowel obstruction): Status: Resolved Problem details: Condition resolved Reason for Visit Reason for Visit: ABD PAIN Hospital Course Discharge Summary: This is a pleasant 44 years old gentleman presented to the ER with worsening abdominal pain, CT scan of the abdomen was done that showed partial small bowel obstruction, patient was admitted on my service for further evaluation and IV fluid resuscitation with repeated physical examination. Patient received an NG tube and responded well to conservative measures, followed by responding to milk of molasses enema and had the NG clamped and tolerated that well, patient continues to pass gas and tolerated clear liquid diet. During hospital stay patient demonstrated stable vital signs and continue to have good urine output, patient was seen and evaluated by Dr. Sultana for his epilepsy and was managed appropriately with that regard. We will plan to discharge patient home today Physical Exam Narrative: EXAM NARRATIVE: Patient is conscious alert oriented X3 BMI 25 Head and neck examination PERRLA no masses no cervical lymphadenopathy no jaundice Abdomen nontender nondistended soft no organomegaly guarding or rigidity/no signs of peritonitis Extremities no cyanosis no clubbing no edema Discharge Data Data Completed and Pending: Completed Studies During Hospitalization Category Date Time Status CT abdomen pelvis w con* [id number] Urge nt Cat Scan 03/19/20 13:41 Completed XR KUB [id number] Urge nt Exams 03/20/20 06:22 Completed XR chest 1V blayne ble [id number] Stat Exams 03/19/20 18:09 Completed Pending at discharge Category Date Time Status Complete Blood Co unt w/Auto AM LABS Lab 03/22/20 04:00 Ordered Complete Blood Co unt w/Auto AM LABS Lab 03/23/20 04:00 Ordered Comprehensive Met abolic Panel AM LA BS Lab 03/22/20 04:00 Ordered Comprehensive Met abolic Panel AM LA BS Lab 03/23/20 04:00 Ordered Magnesium AM LABS Lab 03/22/20 04:00 Ordered Phosphorus AM LAB S Lab 03/22/20 04:00 Ordered Labs from last 24 hours 03/21/20 03/21/20 03/21/20 04:35 04:35 04:35 WBC 7.6 RBC 4.60 Hgb 13.9 Hct 42.2 MCV 91.7 MCH 30.2 MCHC 32.9 RDW 12.4 Plt Count 238 MPV 10.4 Neut % (Auto) 71.5 Lymph % (Auto) 19.0 [place] % (Auto) 7.7 Eos % (Auto) 1.4 Baso % (Auto) 0.3 Neut # (Auto) 5.5 Lymph # (Auto) 1.5 [place] # (Auto) 0.6 Eos # (Auto) 0.1 Baso # (Auto) 0.0 Nucleated RBC % (a uto) 0 Nucleated RBCs # 0.0 Sodium 139 Potassium 3.7 Chloride 101 Carbon Dioxide 25 Anion Gap 16.7 BUN 10 Creatinine 0.9 GFR Calculation 90.8 Glucose 82 Calculated Osmolal ity 283 L Calcium 9.0 Phosphorus 3.4 Magnesium 1.6 L Total Bilirubin 0.8 AST 11 ALT 9 Alkaline Phosphata se 77 Total Protein 6.2 L Albumin 3.5 Globulin 2.7 Vitals: Last Vital Signs Temp 98.0 F 03/21/20 11:36 Pulse 64 03/21/20 11:36 Resp 18 03/21/20 11:36 BP 182/64 03/21/20 11:36 Pulse Ox 95 03/21/20 11:36 Discharge Plan Discharge Patient Disposition: Home, Self-Care Condition: Stable Prescriptions: Continued lamotrigine 150 mg tablet 150 mg PO BID Qty: 60 RF: 4 levetiracetam [Keppra XR] 750 mg tablet extended release 24 hr 1,500 mg PO DAILY Qty: 60 RF: 4 citalopram [Celexa] 20 mg tablet 20 mg PO .morning Qty: 30 RF: 1 melatonin 3 mg capsule 3 mg PO .bedtime PRN (Reason: sleep) Qty: 30 RF: 1 Discharge Orders: Discharge Order (Routine); Ordered 03/21/20 Ordered By: Zion David Referrals: Melonie Lyman MD [Primary Care Provider] - Discharge Diet: Advance as tolerated Discharge Activity: Resume usual activity Activity Restrictions/Additional Instructions: Plan of care; Review the pathology with the patient Return to primary care provider Avoid constipation High Fiber diet; As Fiber softens the stool and helps prevent constipation. It also can help decrease pressure in the colon and help prevent flare-ups of diverticulitis. High-fiber foods include: ? Beans and legumes ? Bran, whole wheat bread and whole grain cereals such as oatmeal ? Brown and wild rice ? Fruits such as apples, bananas and pears ? Vegetables such as broccoli, carrots, corn and squash ? Whole wheat pasta The target is to eat 25 to 30 grams of fiber daily. Drink at least 8 cups of fluid daily. Fluid will help soften your stool.Exercise also promotes bowel movement and helps prevent constipation. Return to the emergency department if any worsening symptoms should to occur. Weight management Assurance and education All questions have been answered Discharge Attestations Time Spent in Discharge Care*: less than 30 min Specific Discharge Activities: Specific discharge activities: educating patient Status at Discharge: Cognitive status at discharge: cognitively intact, Behavioral status at discharge: cooperative, Functional status at discharge: independent ambulation Overall status at discharge: patient is back to baseline Quality Metrics Clinical Quality Measures During this hospital stay, did patient experience: None Coding Level of Care Code Acute Blanket Washer for [facility] Fwd Diagnoses SBO (small bowel obstruction) K56.609
--- NOTE | 2020-03-21 12:50 | PC.NURSE ---
Reviewed patient discharge with patient at this time. Patient verbalized understanding of increasing fiber and exercising. Patient is A&Ox3. Respirations even and non-labored on room air. IV removed intact. Cigarettes and advanced manufacturing vice president returned to patient at discharge.
--- NOTE | 2020-03-21 15:53 | PC.RESP ---
Smoking Cessation information and a schedule of classes sent to patient.
== END 2020-03-21 12:50 | disposition home or self-care (01) | DRG 389 ==
LOC: ER 17:10 → MEDSURG 17:40
PROVIDERS: Family Medicine; Physician Assistant; Admitting Provider Surgery; PCP Specialist; Visit Provider Surgery
DX: K56.600 Partial intestinal obstruction, unspecified as to cause (principal); F33.2 Major depressive disorder, recurrent severe without psychotic features; F41.1 Generalized anxiety disorder; F17.210 Nicotine dependence, cigarettes, uncomplicated; Z96.82 Presence of neurostimulator; F15.21 Other stimulant dependence, in remission
CPT/HCPCS: 12345; 36415; 71045; 74018; 74177; 80053; 80074; 80306; 80307; 81003; 83605; 83690; 83735; 84100; 85025; 85610; 87806; 96372; 96375; 99283; J1644; J2060; J2270; J2405; Q9967

== ENCOUNTER → 2020-06-06 17:42 | Outpatient (BNVA) | payer MEDICARE, SELFPAY | PROVIDERS: PCP Specialist; Visit Provider Nurse Practitioner Family | DX: Z20.828 Contact with and (suspected) exposure to other viral communicable diseases (principal) | CPT/HCPCS: 87635 ==

== ENCOUNTER → 2020-06-14 07:56 | Outpatient (BNVA) | payer MEDICARE, SELFPAY | PROVIDERS: PCP Specialist; Visit Provider Nurse Practitioner Psychiatric/Mental Health | DX: F33.2 Major depressive disorder, recurrent severe without psychotic features (principal); F41.1 Generalized anxiety disorder; F15.21 Other stimulant dependence, in remission; F17.210 Nicotine dependence, cigarettes, uncomplicated | CPT/HCPCS: 99214 ==

== ENCOUNTER 2020-07-21 12:40 | Emergency (ER) | payer MEDICARE, SELFPAY ==
[2020-07-21 12:41] VITALS: BP 114/74; PULSE 63; RESP 16; TEMP 36.3; O2SAT 97; BMI 23.6
[2020-07-21] MEDS: lidocaine 1% INJ 20 mL INJECTION (13:12)
--- NOTE | 2020-07-21 13:30 | W.ED.SKABFB ---
HPI - Skin/Abscess/Foreign Bdy General: Chief complaint: Ear Stated complaint: ear painn Time Seen by Provider: 07/21/20 12:46 History of Present Illness: HPI narrative: 44-year-old male patient presents to the emergency department with left lower issue. He reports past 3 to 4 days of increased swelling and pain he denies trauma. States took [id number] ibuprofen prior to arrival without improvement of pain. He states pain is located on the outside of the left ear. MD complaint: abscess/boil Onset (ago): day(s) (3-4) Tetanus up to date: yes Location: head (left ear - posterior/inferior) Severity: moderate Severity scale (1-10): 5 Quality: aching Pain Consistency: constant Relieving factors: none Exacerbating factors: none Context: none Associated symptoms: Deny chills, fever(s), nausea or vomiting Treatments prior to arrival: none Review of Systems General: Reports: 10 or more systems reviewed and unremarkable except in HPI and below Const: Denies: fever(s), chills or diaphoresis Eyes: Denies: blurry vision or eye redness ENMT: Reports: ear or mastoid pain (left); Denies: throat pain, dental pain or disequilibrium Card: Denies: chest pain, palpitations or irregular heart rhythm Resp: Denies: dyspnea, productive cough, non-productive cough or wheezing GI: Denies: abdominal pain, nausea or vomiting : Denies: dysuria Musc: Denies: neck pain, back pain, joint pain or joint warmth Skin/Breast: Denies: rash or pruritus Neuro: Denies: headache(s), weakness in extremities or behavioral changes Psych: Denies: anxiety or depression Magdi/Lymph: Denies: easy bruising [facility] ED PFSH: Medical History (Updated 07/21/20 @ 13:29 by APOLINAR Carmona) Amphetamine dependence, continuous Amphetamine dependence, in remission UDS positive for Amphetamines on 01/15/20. Generalized anxiety disorder Major depressive disorder, recurrent severe without psychotic features Nicotine dependence, cigarettes, uncomplicated Surgical History History of appendectomy Status post placement of VNS (vagus nerve stimulation) device 2007 [place], [place] VNS placement Family History Grandfather CAD (coronary artery disease) Hypertension Grandmother Cancer Stroke Social History Smoking and tobacco status: current every day smoker cigarettes Packs smoked per day: 1 Alcohol intake: never Household members: significant other Marital status: Single Current occupational status: disabled History of recent travel: No Physical Exam Const: COMMON NORMALS: no acute distress, patient oriented x3, healthy appearing and alert GENERAL APPEARANCE: cooperative and well hydrated NUTRITIONAL APPEARANCE: thin ORIENTATION/CONSCIOUSNESS: Yes awake, Yes oriented to person, Yes oriented to place and Yes oriented to time HENMT: COMMON NORMALS: normocephalic, atraumatic, TM's normal bilaterally, Normal external nose present, Normal nasal mucous membranes and turbinates present and moist oral mucous membranes HEAD & SCALP: normocephalic and atraumatic FACE & SINUS: normal facial exam and face symmetric NOSE: Normal external nose present and Normal nasal mucous membranes and turbinates present TYMPANIC MEMBRANE: TM's normal bilaterally EAR IMAGES: 1. 2.5 cm 2.5 cm soft, fluctuant indurated sebaceous cyst, negative erythema, positive tenderness to touch, complete resolution after incision and drainage. Sac was not retrieved. THROAT: posterior oropharynx normal Eye: COMMON NORMALS: Equal, round and reactive pupils present and EOMs intact bilaterally GENERAL EYE: appearance normal, both eyes and all related structures PUPIL: Yes Equal, round and reactive pupils present Neck/C-Spine: COMMON NORMALS: full ROM and no lymphadenopathy GENERAL: Yes normal visual inspection and Yes trachea midline CERVICAL SPINE: Yes cervical ROM normal Lymph: LYMPHATIC: no lymphadenopathy noted Chest: COMMONS NORMALS: normal inspection of the chest Resp: COMMON NORMALS: normal respiratory effort and clear to auscultation bilaterally AUSCULTATION: clear to auscultation bilaterally Cardio: COMMON NORMALS: regular rhythm, S1 normal heart sound present, S2 normal heart sound present and Peripheral pulses 2+ throughout RHYTHM: regular rhythm HEART SOUNDS: S1 normal heart sound present and S2 normal heart sound present PERIPHERAL PULSES: Peripheral pulses 2+ throughout GI: COMMON NORMALS: Soft to palpation and non-tender INSPECTION: Yes normal to inspection PALPATION: Yes Soft to palpation : COMMON NORMALS: Yes no CVA tenderness BLADDER/KIDNEY EXAM: Yes no CVA tenderness Back/Pelvis: COMMON NORMALS: no CVA tenderness and thoracic and lumbar spine normal to inspection Extremity: COMMON NORMALS: normal to inspection and capillary refill normal Neuro: COMMON NORMALS: patient oriented x3 and no focal motor deficits SENSORIUM/ORIENTATION: Yes alert, Yes oriented to person, Yes oriented to place and Yes oriented to time Psych: COMMON NORMALS: mental status grossly normal, Normal thought process present and cooperative ACTIVITY/MOTOR BEHAVIOR: Yes appropriate eye contact THOUGHT PROCESS: Normal thought process present Skin: COMMON NORMALS: no rashes or lesions noted and turgor normal GENERAL SKIN EXAM: no rashes or lesions noted and turgor normal Procedures Abscess I/D Site: face (left ear) Local Anesthetic: lidocaine 1% Amount of anesthesia used (mL): 3 Technique: other (# 15) Irrigation: Yes Packing used?: none Complications: other (none - large amount of purulent drainage expressed from the sebaceous cyst) Course Vital Signs: Vital signs: Vital Signs Temperature 97.3 F L 07/21/20 12:41 Pulse Rate 63 07/21/20 12:41 Respiratory Rate 16 07/21/20 12:41 Blood Pressure 114/74 07/21/20 12:41 Pulse Oximetry 97 07/21/20 12:41 Discharge Plan Discharge Patient Disposition: Home Clinical Impression: Sebaceous cyst of ear Condition: Stable Prescriptions: New IBU 800 mg tablet 800 mg PO TID PRN (Reason: pain) Qty: 30 RF: 0 Bactrim DS 800-160 mg tablet 1 tab PO BID 7 Days Qty: 14 RF: 0 No Action citalopram [Celexa] 40 mg tablet 40 mg PO .morning Qty: 30 RF: 3 melatonin 10 mg capsule 10 mg PO .bedtime PRN (Reason: sleep) Qty: 30 RF: 3 lamotrigine 150 mg tablet 150 mg PO BID Qty: 60 RF: 4 levetiracetam [Keppra XR] 750 mg tablet extended release 24 hr 1,500 mg PO DAILY Qty: 60 RF: 4 Discharge Orders: Discharge Order (Routine); Ordered 07/21/20 Ordered By: Sarah Huizar Referrals: Melonie Lyman MD [Primary Care Provider] - Discharge Diet: Usual diet Discharge Activity: Resume usual activity Patient Instructions: Skin Pseudocyst (ED) Activity Restrictions/Additional Instructions: support services specialist will be contacting you with appointment time and date of surgical referral. A surgeon will need to remove the sac of the sebaceous cyst Without removal of the sac, this cyst will return and swelling will return. Take Bactrim until all gone, even if better Do not take ibuprofen along with other medication as duplication of therapy can occur. Take only prescription strength ibuprofen that has been prescribed to you today, take with food to avoid stomach upset May apply cool compresses alternate with warm moist heat as needed, keep bandage applied and change as needed, drainage is to be expected, return to the emergency room if you develop fever, increased pain to the area or redness. Coding Level of Care Code ED Asw Specialist for [facility] Granados
[2020-07-21 13:43] VITALS: RESP 16; TEMP 36.3; O2SAT 97
--- NOTE | 2020-07-23 11:44 | DCPLANNER ---
project manager finance had message to schedule a follow up appointment with general surgery. project manager finance emailed Hebert at [facility] with patients information. Patients information will be printed and reviewed. Clinic will call patient with appointment information.
--- NOTE | 2020-07-26 14:18 | DCPLANNER ---
Shelly from [facility] contacted case fitter stating that patient declined appointment at this time.
== END 2020-07-21 13:43 | disposition home or self-care (01) ==
PROVIDERS: Emergency Provider Nurse Practitioner Family; PCP Specialist
DX: L72.3 Sebaceous cyst (principal); F17.210 Nicotine dependence, cigarettes, uncomplicated
CPT/HCPCS: 12345; 69000; 87070; 87075; 87205; 99282

== ENCOUNTER 2020-09-29 17:05 | Emergency (ER) | payer MEDICARE, SELFPAY ==
[2020-09-29 17:10] VITALS: BP 130/84; PULSE 60; RESP 18; TEMP 36.5; O2SAT 98; BMI 24.3
--- NOTE | 2020-09-29 18:08 | W.ED.EXTPRO ---
HPI - Extremity Problem General: Chief complaint: Extremity Problem,Nontraumatic Stated complaint: R SHOULD/ARM PAIN/INJURY Time Seen by Provider: 09/29/20 18:08 Source: patient Mode of arrival: ambulatory Limitations: no limitations History of Present Illness: HPI Narrative: Patient comes in today with complaints of right shoulder pain. Patient was lifting on some concrete on and felt a strain or pull in his right shoulder. Patient reports persistent and aggravating pain. Patient appears well. Patient appears in no acute distress. Review of Systems General: Reports: 10 or more systems reviewed and unremarkable except in HPI and below Musc: Reports: joint pain (right shoulder) [facility] ED PFSH: Medical History (Updated 09/29/20 @ 19:03 by NGUYỄN Ny) Amphetamine dependence, continuous Amphetamine dependence, in remission UDS positive for Amphetamines on 01/15/20. Generalized anxiety disorder Major depressive disorder, recurrent severe without psychotic features Nicotine dependence, cigarettes, uncomplicated Surgical History History of appendectomy Status post placement of VNS (vagus nerve stimulation) device 2007 [place], [place] VNS placement Family History Grandfather CAD (coronary artery disease) Hypertension Grandmother Cancer Stroke Social History Smoking and tobacco status: current every day smoker cigarettes Packs smoked per day: 1 Alcohol intake: never Household members: significant other Marital status: Single Current occupational status: disabled History of recent travel: No Physical Exam Const: COMMON NORMALS: no acute distress and patient oriented x3 GENERAL APPEARANCE: cooperative HENMT: COMMON NORMALS: normocephalic and Normal external nose present HEAD & SCALP: normal to inspection and normocephalic NOSE: Normal external nose present MOUTH: Normal oral and palatal mucosa present Eye: GENERAL EYE: appearance normal, both eyes and all related structures Neck/C-Spine: COMMON NORMALS: full ROM Lymph: LYMPHATIC: no lymphadenopathy noted Chest: COMMONS NORMALS: normal inspection of the chest Resp: COMMON NORMALS: normal respiratory effort EFFORT & INSPECTION: Yes able to speak in complete sentences Cardio: COMMON NORMALS: regular rate and regular rhythm RATE: regular rate RHYTHM: regular rhythm GI: COMMON NORMALS: non-tender Back/Pelvis: COMMON NORMALS: thoracic and lumbar spine normal to inspection Extremity: NARRATIVE EXTREMITY EXAM: Guarded movement of the right shoulder. Tenderness is noted in anterior shoulder. Pronounced AC joint. Distal pulses are intact. Muscle tenderness is noted to the trapezius. Neuro: COMMON NORMALS: patient oriented x3 and moves all extremities Psych: COMMON NORMALS: mental status grossly normal and cooperative Skin: COMMON NORMALS: no rashes or lesions noted GENERAL SKIN EXAM: no rashes or lesions noted Course Vital Signs: Vital signs: Vital Signs Temperature 97.7 F 09/29/20 17:10 Pulse Rate 60 09/29/20 17:10 Respiratory Rate 18 09/29/20 17:10 Blood Pressure 130/84 09/29/20 17:10 Pulse Oximetry 98 09/29/20 17:10 MDM - Extremity (Nontraumatic) MDM Narrative: Medical decision making narrative: Patient was seen in the emergency department for an injury occurred on . Patient reports lifting a heavy piece of concrete and feeling a strain in his right shoulder. Patient reports worsening pain over the last 2 days. Patient had reduced range of motion of the shoulder due to pain and discomfort. Patient had tenderness in the right anterior shoulder. Distal pulses were intact. And sensation was normal. Differential diagnosis considered were shoulder impingement syndrome, muscle strain, AC joint separation. Patient did have a prominent AC joint tenderness. X-ray noted some arthritis to the AC joint, no dislocation, no fracture. Patient was given a dose of Depo-Medrol 80 mg to help with pain and inflammation. Patient was also given 1 tablet of hydrocodone and a injection of ketorolac for his pain. Patient was recommended to follow-up with primary care for further evaluation and treatment. Patient may need to have MRI for further evaluation. Patient was written for diclofenac for 10 days twice a day dosing and 8 tablets of hydrocodone for breakthrough pain. Discharge Plan Discharge Patient Disposition: Home Clinical Impression: Osteoarthritis of right AC (acromioclavicular) joint Right shoulder strain Qualifiers: Encounter type: initial encounter Qualified Code(s): S46.911A - Strain of unspecified muscle, fascia and tendon at shoulder and upper arm level, right arm, initial encounter Condition: Stable Prescriptions: New diclofenac sodium 75 mg tablet,delayed release (DR/EC) 75 mg PO BID Qty: 20 RF: 0 hydrocodone-acetaminophen 5-325 mg tablet 1 tab PO Q6H PRN (Reason: pain) Qty: 8 RF: 0 No Action lamotrigine 150 mg tablet 150 mg PO BID@0900,2100 RF: 0 Celexa 40 mg tablet 40 mg PO DAILY@0900 RF: 0 Keppra XR 750 mg tablet extended release 24 hr 1,500 mg PO DAILY@0900 RF: 0 melatonin 10 mg capsule 10 mg PO BEDTIME@2100 PRN (Reason: sleep) RF: 0 ibuprofen [IBU] 800 mg tablet 800 mg PO TID PRN (Reason: pain) Qty: 30 RF: 0 Discharge Orders: Discharge ED (Routine); Ordered 09/29/20 Ordered By: Todd Estrada Referrals: Melonie Lyman MD [Primary Care Provider] - Discharge Diet: Usual diet Discharge Activity: Increase activity as tolerated Patient Instructions: Muscle Strain (ED) Activity Restrictions/Additional Instructions: Increase activity as tolerated. Gentle stretching and range of motion exercises. Follow-up with primary care for further treatment. Return to the emergency department for new concerns. Stand Alone Forms: Work/School Release Coding Level of Care Code ED Advertising Designer for [employer] Fwd Exam Comprehensive
--- NOTE | 2020-09-29 18:13 | XRR_ITS ---
PROCEDURE INFORMATION: Exam: XR Right Shoulder Exam date and time: 09/29/2020 6:15 PM Age: 45 years old Clinical indication: Pain; Shoulder; Right; Additional info: Injury TECHNIQUE: Imaging protocol: XR Right shoulder. Views: 2 or more views. COMPARISON: No relevant prior studies available. FINDINGS: Bones/joints: The bones are intact and in normal alignment. Mild degenerative changes of the right acromioclavicular joint. No fracture. Soft tissues: Normal. XR/XR shoulder RT min 2V* [id number] IMPRESSION: No acute finding.
[2020-09-29] MEDS: HYDROcodone-acetaminophen 7.5-325 mg Tablet 1 TAB PO (19:01)
[2020-09-29] MEDS: ketorolac 30 mg/mL INJ IM (19:04)
[2020-09-29] MEDS: methylPREDNISolone (DEPO) 80 MG/ML INJ 1 mL IM (19:05)
[2020-09-29 19:23] VITALS: BP 124/88; PULSE 82; RESP 18; O2SAT 97
== END 2020-09-29 19:24 | disposition home or self-care (01) ==
PROVIDERS: Emergency Provider Nurse Practitioner Family; PCP Specialist
DX: S46.911A Strain of unspecified muscle, fascia and tendon at shoulder and upper arm level, right arm, initial encounter (principal); M19.011 Primary osteoarthritis, right shoulder; F17.210 Nicotine dependence, cigarettes, uncomplicated; X50.9XXA Other and unspecified overexertion or strenuous movements or postures, initial encounter
CPT/HCPCS: 12345; 73030; 96372; 99282; 99283; J1040; J1885

== ENCOUNTER → 2020-10-08 08:07 | Outpatient (BNVA) | payer MEDICARE, SELFPAY | PROVIDERS: PCP Specialist; Visit Provider Nurse Practitioner Psychiatric/Mental Health | DX: F33.2 Major depressive disorder, recurrent severe without psychotic features (principal); F41.1 Generalized anxiety disorder; F15.21 Other stimulant dependence, in remission; F17.210 Nicotine dependence, cigarettes, uncomplicated | CPT/HCPCS: 99214 ==

== ENCOUNTER → 2020-10-24 09:11 | Outpatient (BNVA) | payer MEDICARE, SELFPAY | PROVIDERS: PCP Specialist; Visit Provider Nurse Practitioner Family | DX: M25.511 Pain in right shoulder (principal); R07.81 Pleurodynia; G40.909 Epilepsy, unspecified, not intractable, without status epilepticus; Z20.822 Contact with and (suspected) exposure to COVID-19 | CPT/HCPCS: 71046; 73030; 87635 ==

== ENCOUNTER 2020-10-29 07:33 | Day surgery (SDC) | payer MEDICARE, SELFPAY ==
[2020-10-26 14:27] VITALS: BMI 23.6
[2020-10-29 07:43] VITALS: BP 123/86; PULSE 66; RESP 18; TEMP 36.1; O2SAT 95
--- NOTE | 2020-10-29 08:04 | P.ANESASSM_ITS ---
Pre-Anesthetic Assessment Pre-Anesthetic Assessment: Height/Weight: Height 1.73 m Weight 70.307 kg Temp Pulse Resp BP Pulse Ox 97 F L 66 18 123/86 95 10/29/20 07:43 10/29/20 07:43 10/29/20 07:43 10/29/20 07:43 10/29/20 07:43 Preop Diagnosis: Vagal nerve stimulator generator end of service Proposed Procedure: Operation Date: 10/29/20 08:10 Proposed Procedures p VNS Generator Exchange(Not Applicable) - Todd Bennett MD Familial anesthetic complications: None Was Beta King taken within 24 hours: N/A Last intake: NPO > 8hrs Social: Social History: Tobacco and No alcohol Exam: Pre-Anes Outpt Exam: alert, oriented x 3, clear to auscultation bilater ally and regular rate & rhythm Airway: Cervical ROM: WNL MP: 3 Dentition: Partials Neuropsych: Neuropsych: Anxiety, Depression and Seizure Anesthetic Plan: ASA status: 2 Anesthesia: MAC Risk of > 500 ml blood loss (7ml/kg in children): No PFSH Anesthesia PFSH: Medical History Amphetamine dependence, continuous Amphetamine dependence, in remission UDS positive for Amphetamines on 01/15/20. Generalized anxiety disorder Major depressive disorder, recurrent severe without psychotic features Nicotine dependence, cigarettes, uncomplicated Surgical History History of appendectomy Status post placement of VNS (vagus nerve stimulation) device 2007 [place], [place] VNS placement Family History Grandfather CAD (coronary artery disease) Hypertension Grandmother Cancer Stroke Social History Smoking and tobacco status: current every day smoker cigarettes Packs smoked per day: 1 Alcohol intake: never Household members: significant other Marital status: Single Current occupational status: disabled History of recent travel: No Data Anesthesia Cardiac Studies: No Data to Display
[2020-10-29 08:23] LABS: Basophils # 0.1 10^3/uL (0.0-0.1); Basophils % 1.4 %; Eosinophils # 0.2 10^3/uL (0.0-0.8); Eosinophils % 4.5 %; Hematocrit 41.1 % (42.0-52.0); Hemoglobin 13.7 g/dL (11.7-16.6); Lymphocytes # 1.6 10^3/uL (0.8-4.8); Mean Corpuscular HGB Conc 33.3 g/dL (30.0-36.0); Mean Corpuscular Hemoglobin 30.3 pg (28.0-34.0); Mean Corpuscular Volume 90.9 fL (80-94); Mean Platelet Volume 9.5 fL (7.4-10.4); Monocytes # 0.5 10^3/uL (0.2-0.9); Monocytes % 13.2 %; Neutrophils # 1.31 10^3/uL (1.8-7.7); Neutrophils % 36.6 %; Nucleated Red Blood Cells % 0 %; Platelet Count 304 10^3/cmm (130-400); Red Blood Count 4.52 10^6/uL (4.1-5.3); Red Cell Distribution Width 12.9 % (12.1-15.1); White Blood Count 3.6 10^3/uL (4.0-10.0)
[2020-10-29 08:44] LABS: Blood Urea Nitrogen 6 mg/dL (6-20); Calcium 8.8 mg/dL (8.5-10.5); Carbon Dioxide 29 mmol/L (22-29); Chloride 106 mmol/L (98-107); Glomerular Filtration Rate 120.9 mL/min (90-130); Glucose 95 mg/dL (65-115); Osmolality Calculated 289 mOsm/kg (285-295); Sodium 141 mmol/L (136-145)
--- NOTE | 2020-10-29 08:53 | W.PM.OPSUD ---
Surgery/Procedure H&P Update DATE OF PROCEDURE: October 29, 2020 DATE H&P PERFORMED: 10/19/20 H&P UPDATE INFORMATION: I have reviewed H&P completed within last 30 days, I have examined patient prior to procedure and No changes to prior documentation PREOP DIAGNOSIS: Vagal nerve stimulator generator end of service PRIMARY INDICATION FOR PROCEDURE: Vagal nerve stimulator generator at end of service PLANNED PROCEDURE: Operation Date: 10/29/20 08:10 Proposed Procedures p VNS Generator Exchange(Not Applicable) - Todd Bennett MD
[2020-10-29 09:00] LABS: Add Urine Microscopic? YES; Bilirubin Urine Neg (Negative); Blood Urine Neg (Negative); Glucose Urine UA Norm (Normal); Ketones Urine Negative (Negative); Leukocyte Esterase Urine 1+ (Negative); Nitrate Urine Negative (Negative); Protein Urine Neg (Negative); Urine Appearance Clear (CLEAR); Urine Color Yellow (Yellow); Urobilinogen Urine Norm (Negative); pH Urine 5 (5-7)
[2020-10-29 09:01] LABS: Add Urine Culture? No; Bacteria Urine TRACE /hpf; Mucus Urine TRACE /hpf
[2020-10-29] MEDS: sodium chloride 0.9% 1,000 ML 30 ML IV (09:15)
[2020-10-29] MEDS: ceFAZolin 1,000 mg SDV 1000 MG IRRIGATION (09:29)
[2020-10-29] MEDS: lidocaine 1% INJ 20 mL SUBCUT (09:29)
--- NOTE | 2020-10-29 10:10 | PM.OP ---
Operative Report Date of procedure: October 29, 2020 Pre-op Diagnosis: Vagal nerve stimulator generator end of service Post-op diagnosis: same Procedure Done: Vagal nerve stimulator generator exchange Specimens removed/disposition: Old vagal nerve stimulator generator Pathology: none sent Surgeon: Todd Bennett Anesthesia: MAC and Local Complications: None Condition: stable Disposition: same day Brief History: Mr. Stone is a 45-year-old gentleman with a vagal nerve now at end of service. Generator exchange has been requested by Dr. Lyman from neurology. Rationale for this was carefully and frankly discussed. Original system was placed in 2007 in [facility]. Details and risk of the procedure were carefully reviewed. Appropriate consents have been reviewed and signed. Procedure: Mr. Stone was appropriately positioned and sterilely prepped and draped. IV consicious sedation was given with anesthesia monitoring. 1% lidocaine was infiltrated through the prior insertion incision site. # 15 scalpel blade was used to incise the skin down to subcutaneous layer. Subsequently, using sharp and blunt dissection the pseudocapsule to the old generator, which appeared to be beneath the pectoralis fascia, was reached and opened with a scalpel blade. This area was then enhanced utilizing Metzenbaum scissors with care taken not to injure the pacing leads. Once the pocket was adequate opened, hemostats were utilized to deliver the old generator. Set screw were released and the lead was removed and inserted properly into the new generator with set screw then secured. The old generator was removed from the field. The entire system was then interrogated with confirmation of operability. The incision was irrigated with antibiotic solution. Hemostasis was confirmed. The new generator was placed back into the old subcutaneous pocket. The wound was then closed in 2 layers of 3-0 Vicryl suture. Skin was closed in a subcuticular manner with 4-0 undyed Vicryl suture. A 2 layer pressure dressing was then applied. The entire system was interrogated a second time and appropriate parameters again obtained. He tolerated procedure well and was taken to the recovery room in stable condition. He will follow-up in my clinic next week. Dr. Lyman's neurology service has been notified of the new generator placement. Generator: Model Sentiva serial number: [id number] Frequency 30 Hz pulse width: 250 on time: 30 seconds Off time: 3 minutes duty cycle 16% Lead impedance: 3675 ohms auto stimulation threshold: 30%
[2020-10-29 10:17] VITALS: PULSE 86; RESP 18; TEMP 37.2; O2SAT 94
[2020-10-29 10:29] VITALS: BP 126/75; PULSE 83; RESP 18; O2SAT 96
[2020-10-29] MEDS: HYDROcodone-acetaminophen 5-325 mg Tablet 1 TAB PO (10:30)
--- NOTE | 2020-10-29 15:45 | ANE.PACU2 ---
Inpatient post-anesthesia follow up: Airway intact: Yes Vital signs: Temperature 98.9 F Pulse Rate 83 Respiratory Rate 18 Blood Pressure 126/75 Pulse Oximetry 96 Oxygen Delivery Me thod Room Air Oxygen Flow Rate Fraction of Inspir ed Oxygen Hydration adequate: Yes Nausea and vomiting: No Pain level: 1 Mental status: Baseline
== END 2020-10-29 11:00 | disposition home or self-care (01) ==
PROVIDERS: PCP Specialist; Visit Provider Thoracic Surgery (Cardiothoracic Vascular Surgery)
PROC: (CPT 61885; principal; 2020-10-29 08:10)
DX: Z45.42 Encounter for adjustment and management of neurostimulator (principal); F17.210 Nicotine dependence, cigarettes, uncomplicated
CPT/HCPCS: 61886; 36415; 80048; 81001; 85025; C1767; J0690; J2250; J2704; J3010; J3490; J7030

== ENCOUNTER → 2020-11-12 07:40 | Outpatient (BNVA) | payer MEDICARE, SELFPAY | PROVIDERS: PCP Specialist; Visit Provider Nurse Practitioner Psychiatric/Mental Health | DX: F33.2 Major depressive disorder, recurrent severe without psychotic features (principal); F41.1 Generalized anxiety disorder; F15.21 Other stimulant dependence, in remission; F17.210 Nicotine dependence, cigarettes, uncomplicated | CPT/HCPCS: 99214 ==

== ENCOUNTER 2020-12-30 23:41 | Emergency (ER) | payer MEDICARE, SELFPAY ==
[2020-12-30 23:41] VITALS: BP 148/86; PULSE 79; RESP 16; TEMP 36.8; O2SAT 95; BMI 22.8
--- NOTE | 2020-12-30 23:50 | ECG_ITS ---
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 Measurements Intervals [place] Rate: 75 P: 71 CA: 136 QRS: 76 QRSD: 124 T: 63 QT: 396 QTc: 444 Interpretive Statements SINUS RHYTHM RIGHT BUNDLE BRANCH BLOCK Compared to ECG 01/15/2019 16:56:27 No significant changes Electronically Signed On 01-01-2021 12:38:55 CDT by Romi Lowe M.D. [id number]
--- NOTE | 2020-12-30 23:51 | ED_ITS ---
HPI - Seizure General: Chief Complaint: Seizure Stated Complaint: SEIZURE Time Seen by Provider: 12/30/20 23:49 Source: patient and EMS Mode of arrival: EMS Limitations: altered mental status History of Present Illness: HPI Narrative: 45-year-old male patient presents to the emergency department due to seizure, previous history of seizure disorder; EMS reports called to the residence by patient spouse due to abnormal postictal response, she reported patient was confused and not acting right. Spouse is not present at time of exam. Unknown length of time patient had seizure. EMS reports administered ketamine due to restless behavior following the seizure. Patient appears tired, poor historian upon exam. Recent VNS device placement for seizure disorder, unknown if device was utilized during seizure. MD complaint: seizure Description of Episode: loss of consciousness and post-event confusion Witnessed: Yes - by Bystander Seizure History: Yes Place: Home Possible Precipitating Event: none Associated symptoms: Reports no associated symptoms, confusion and malaise; Deny chest pain, chills, diaphoresis or fever(s) Treatments prior to arrival: other (Ketamine) Review of Systems General: Reports: 10 or more systems reviewed and unremarkable except in HPI and below Const: Reports: fatigue and malaise; Denies: fever(s), chills, body aches or diaphoresis Eyes: Denies: change in vision, blurry vision, eye discomfort or eye redness ENMT: Denies: throat pain, dental pain or disequilibrium Card: Denies: chest pain, palpitations or irregular heart rhythm Resp: Denies: dyspnea, productive cough, non-productive cough or wheezing GI: Denies: abdominal pain, nausea, vomiting, hematemesis, heartburn, diarrhea or constipation : Denies: dysuria Musc: Denies: neck pain, back pain, joint pain, joint swelling, muscle cramps or muscle weakness Skin/Breast: Denies: rash, pruritus, erythema, skin tenderness or changes in skin color Neuro: Reports: confusion, difficulty communicating thoughts and seizure-like activity; Denies: headache(s), weakness in extremities or behavioral changes Magdi/Lymph: Denies: easy bruising [facility] ED PFSH: Medical History (Updated 12/31/20 @ 01:44 by APOLINAR Carmona) Amphetamine dependence, continuous Amphetamine dependence, in remission January 2020 Generalized anxiety disorder Major depressive disorder, recurrent severe without psychotic features Nicotine dependence, cigarettes, uncomplicated Surgical History History of appendectomy Status post placement of VNS (vagus nerve stimulation) device 2007 [place], [place] VNS placement Family History Grandfather CAD (coronary artery disease) Hypertension Grandmother Cancer Stroke Social History Smoking and tobacco status: current every day smoker cigarettes Packs smoked per day: 1 Alcohol intake: never Household members: significant other Marital status: Single Current occupational status: disabled History of recent travel: No Physical Exam Const: COMMON NORMALS: no acute distress, alert and well nourished EXAM LIMITATIONS: altered mental status GENERAL APPEARANCE: cooperative, well kempt, lethargic and well hydrated; not in distress, not anxious and not ill appearing NUTRITIONAL APPEARANCE: thin ORIENTATION/CONSCIOUSNESS: Yes awake, Yes oriented to person, Yes lethargic and Yes Other orientation findings (Not able to give accurate year or orientation to place) HENMT: COMMON NORMALS: normocephalic, atraumatic, EAC's normal, Normal external nose present and moist oral mucous membranes HEAD & SCALP: normal to inspection, normocephalic and atraumatic FACE & SINUS: normal facial exam and face symmetric NOSE: Normal external nose present and No nasal polyps present EXTERNAL AUDITORY CANAL: EAC's normal MOUTH: Normal oral and palatal mucosa present, lip normal and tongue normal THROAT: posterior oropharynx normal, tonsils normal and uvula midline Eye: COMMON NORMALS: Equal, round and reactive pupils present, EOMs intact bilaterally and conjunctivae normal GENERAL EYE: appearance normal, both eyes and all related structures ALIGNMENT: Yes alignment normal PERIORBITAL: periorbital findings normal CONJUNCTIVA: Yes conjunctivae normal PUPIL: Yes Equal, round and reactive pupils present, Yes pupil size - right Right pupil size (mm): 3 and Yes pupil size - left Left pupil size (mm): 3 Neck/C-Spine: COMMON NORMALS: full ROM, no lymphadenopathy, supple and no meningeal signs GENERAL: Yes normal visual inspection and Yes trachea midline CERVICAL SPINE: Yes cervical ROM normal, No pain with cervical ROM, No Cervical spine tenderness, No Paracervical muscle tenderness, No Paracervical spasm and No Trapezius muscle tenderness Lymph: LYMPHATIC: no lymphadenopathy noted Chest: COMMONS NORMALS: normal inspection of the chest and normal palpation of entire chest wall CHEST: No localized rib tenderness with anteroposterior compression Resp: COMMON NORMALS: normal respiratory effort, No retractions, No use of accessory muscles and clear to auscultation bilaterally EFFORT & INSPECTION: Yes able to speak in complete sentences, No labored and No audible wheezes AUSCULTATION: clear to auscultation bilaterally and no wheezes Cardio: COMMON NORMALS: regular rate, regular rhythm, S1 normal heart sound present, S2 normal heart sound present and Peripheral pulses 2+ throughout RATE: regular rate RHYTHM: regular rhythm HEART SOUNDS: S1 normal heart sound present and S2 normal heart sound present PERIPHERAL PULSES: Peripheral pulses 2+ throughout GI: COMMON NORMALS: Normal to inspection, nondistended, normoactive bowel sounds present, Soft to palpation and non-tender INSPECTION: Yes normal to inspection, No abdominal wall ecchymosis, No abdominal distension, No central obesity and No visible herniation PALPATION: Yes Soft to palpation : COMMON NORMALS: Yes no CVA tenderness BLADDER/KIDNEY EXAM: Yes no CVA tenderness Back/Pelvis: COMMON NORMALS: no CVA tenderness, thoracic and lumbar spine normal to inspection, no thoracic nor lumbar tenderness, thoraco-lumbar ROM normal and straight leg raise negative bilaterally Extremity: COMMON NORMALS: normal to inspection, full ROM, capillary refill normal, no clubbing, cyanosis or edema and no pedal edema GENERAL: Yes normal exam except as noted Neuro: BELL COMA SCALE: document GCS findings Smithers coma scale eye opening: Spontaneous Bell coma scale verbal response: Confused Smithers coma scale motor response: Obey commands Bell coma scale total score: 14 COMMON NORMALS: moves all extremities, no focal motor deficits and deep tendon reflexes 2+ bilaterally SENSORIUM/ORIENTATION: Yes alert, Yes oriented to person and Yes lethargic MENINGEAL SIGNS: Yes no meningeal signs SPEECH: speech normal MOTOR EXAM: 5/5 motor strength present throughout Psych: COMMON NORMALS: mental status grossly normal, Normal thought process present, cooperative and speech normal APPEARANCE: Yes grossly normal and Yes well kempt ATTITUDE: Yes calm ACTIVITY/MOTOR BEHAVIOR: Yes appropriate eye contact SPEECH: Yes normal speech THOUGHT PROCESS: Normal thought process present Skin: COMMON NORMALS: no rashes or lesions noted and turgor normal GENERAL SKIN EXAM: no rashes or lesions noted and turgor normal Course Vital Signs: Vital signs: Vital Signs Temperature 98.2 F 12/30/20 23:41 Pulse Rate 76 12/31/20 01:16 Respiratory Rate 21 H 12/31/20 01:16 Blood Pressure 117/99 12/31/20 00:57 Pulse Oximetry 99 12/31/20 01:16 MDM - Seizure MDM Narrative: Medical decision making narrative: 45-year-old male patient presents to the emergency department with confused state restless behavior status post seizure that occurred at home. Significant other arrived to the ED and was able to provide information. She reports he complained of a headache and then developed a seizure. She reports normal seizure aura that occurs, headache. Patient has VNS, significant other states she did not know how to use it and it was not utilized during the seizure. During his stay patient become less post ictal, alert and oriented x4, ambulatory in the room without difficulty, CMP and CBC without acute abnormalities. Urine drug screen did reveal amphetamine, magnesium was slightly on the low side at 1.9. Magnesium was replaced in the ED and prescription for magnesium oxide provided. Upon further evaluation and questioning, significant other reports Petar is addicted to kratom, takes 40 to 60/day. I discussed this can increase his seizure risk and needs to stop use of any supplements or additives other than prescribed medication. Lab Data: Labs: Lab Results 12/30/20 12/30/20 12/31/20 Range/Units 23:59 23:59 00:00 WBC 10.0 (4.0-10.0) 10^3/ uL RBC 5.03 (4.1-5.3) 10^6/u L Hgb 15.3 (11.7-16.6) g/dL Hct 46.2 (42.0-52.0) % MCV 91.8 (80-94) fL MCH 30.4 (28.0-34.0) pg MCHC 33.1 (30.0-36.0) g/dL RDW 12.6 (12.1-15.1) % Plt Count 290 (130-400) 10^3/c mm MPV 9.0 (7.4-10.4) fL Neut % (Auto) 78.7 % Lymph % (Auto) 13.4 % [place] % (Auto) 5.7 % Eos % (Auto) 1.4 % Baso % (Auto) 0.5 % Neut # (Auto) 7.83 H (1.8-7.7) 10^3/u L Lymph # (Auto) 1.3 (0.8-4.8) 10^3/u L [place] # (Auto) 0.6 (0.2-0.9) 10^3/u L Eos # (Auto) 0.1 (0.0-0.8) 10^3/u L Baso # (Auto) 0.1 (0.0-0.1) 10^3/u L Nucleated RBC % (a uto) 0 % Nucleated RBCs # 0.0 /100WBC Sodium 139 (136-145) mmol/L Potassium 3.9 (3.5-5.1) mmol/L Chloride 101 (98-107) mmol/L Carbon Dioxide 31 H (22-29) mmol/L Anion Gap 10.9 (5-19) BUN 12 (6-20) mg/dL Creatinine 0.9 (0.7-1.2) mg/dL GFR Calculation 90.4 (90-130) mL/min Glucose 117 H (65-115) mg/dL Calculated Osmolal ity 289 (285-295) mOsm/k g Calcium 8.5 (8.5-10.5) mg/dL Magnesium 1.9 (1.7-2.3) mg/dL Total Bilirubin 0.2 (0.15-1.2) mg/dL AST 16 (0-40) U/L ALT 13 (0-41) U/L Alkaline Phosphata se 92 (40-130) IU/L Total Protein 6.4 L (6.6-8.7) g/dL Albumin 4.0 (3.5-5.2) g/dL Globulin 2.4 (1.3-4.6) g/dL Urine Opiates Scre en (Negative) ng/mL Ur Barbiturates Sc reen (Negative) ng/mL Ur Phencyclidine S crn (Negative) ng/mL Ur Amphetamines Sc reen (Negative) ng/mL U Benzodiazepines Scrn (Negative) ng/mL Urine Cocaine Scre en (Negative) ng/mL U Marijuana (THC) Screen (Negative) ng/mL 12/31/20 Range/Units 01:12 WBC (4.0-10.0) 10^3/ uL RBC (4.1-5.3) 10^6/u L Hgb (11.7-16.6) g/dL Hct (42.0-52.0) % MCV (80-94) fL MCH (28.0-34.0) pg MCHC (30.0-36.0) g/dL RDW (12.1-15.1) % Plt Count (130-400) 10^3/c mm MPV (7.4-10.4) fL Neut % (Auto) % Lymph % (Auto) % [place] % (Auto) % Eos % (Auto) % Baso % (Auto) % Neut # (Auto) (1.8-7.7) 10^3/u L Lymph # (Auto) (0.8-4.8) 10^3/u L [place] # (Auto) (0.2-0.9) 10^3/u L Eos # (Auto) (0.0-0.8) 10^3/u L Baso # (Auto) (0.0-0.1) 10^3/u L Nucleated RBC % (a uto) % Nucleated RBCs # /100WBC Sodium (136-145) mmol/L Potassium (3.5-5.1) mmol/L Chloride (98-107) mmol/L Carbon Dioxide (22-29) mmol/L Anion Gap (5-19) BUN (6-20) mg/dL Creatinine (0.7-1.2) mg/dL GFR Calculation (90-130) mL/min Glucose (65-115) mg/dL Calculated Osmolal ity (285-295) mOsm/k g Calcium (8.5-10.5) mg/dL Magnesium (1.7-2.3) mg/dL Total Bilirubin (0.15-1.2) mg/dL AST (0-40) U/L ALT (0-41) U/L Alkaline Phosphata se (40-130) IU/L Total Protein (6.6-8.7) g/dL Albumin (3.5-5.2) g/dL Globulin (1.3-4.6) g/dL Urine Opiates Scre en Negative (Negative) ng/mL Ur Barbiturates Sc reen Negative (Negative) ng/mL Ur Phencyclidine S crn Negative (Negative) ng/mL Ur Amphetamines Sc reen Positive H (Negative) ng/mL U Benzodiazepines Scrn Negative (Negative) ng/mL Urine Cocaine Scre en Negative (Negative) ng/mL U Marijuana (THC) Screen Negative (Negative) ng/mL Imaging Data^: CT Head: Radiologist's impression: [address] [address] [address] Scan Report Signed Patient: Petar Stone Unit #: [id number] : 1975 Age/Sex: 45 / M ADM Date: 12/30/20 Loc: ER Room/Bed: Attending Dr: Ordering Provider/Ordering MD: Sarah Huizar Date of Service: 12/30/20 Procedure(s): CT head wo con* [id number] Accession Number(s): [id number] Report Number: [id number] PROCEDURE INFORMATION: Exam: CT Head Without Contrast Exam date and time: 12/30/2020 11:54 PM Age: 45 years old Clinical indication: Condition or disease; Convulsions or seizures; Unspecified; Patient HX: Tonic clonic seizure - post ictal; Additional info: Seizure, confusion TECHNIQUE: Imaging protocol: Computed tomography of the head without contrast. Radiation optimization: All CT scans at this facility use at least one of these dose optimization techniques: automated exposure control; mA and/or kV adjustment per patient size (includes targeted exams where dose is matched to clinical indication); or iterative reconstruction. COMPARISON: CT head wo con* [id number] 01/15/2020 4:41 AM RADIATION DOSE METRICS: Total DLP (mGy-cm): 1517.86 FINDINGS: Brain: No acute intracranial hemorrhage or mass effect. No definite acute infarct by CT. MRI could be more sensitive/specific for detection, as clinically directed. Cerebral ventricles: Ventricle size is normal for age. Bones/joints: No definite acute skull fracture. Paranasal sinuses: Included paranasal sinuses are essentially clear. Mastoid air cells: No significant acute finding. CT/CT head wo con* [id number] IMPRESSION: 1. No acute intracranial hemorrhage or mass effect. 2. No definite acute infarct by CT, see above. 3. Other findings discussed above. 4. Some limitations due to artifact from patient motion. Radiation Dose CTDIVOL = (mGy): DLP = 1517.86 (mGy-cm) Dictated By: Constantine Boudreaux MD Signed By: Constantine Boudreaux MD Signed Date/Time: 12/31/2051 DD/ EKG Data^: EKG 1: EKG interpretation date: 12/30/20 EKG interpretation time: 23:50 Computer generated interpretation: Sinus rhythm, possible right ventricular conduction delay, ventricular rate 75 Discharge Plan Discharge Patient Disposition: Home Clinical Impression: Seizure disorder, Amphetamine abuse, episodic Condition: Stable Prescriptions: New magnesium oxide 400 mg magnesium tablet 400 mg PO BID Qty: 60 RF: 0 No Action duloxetine [Cymbalta] 60 mg capsule,delayed release(DR/EC) 60 mg PO .morning Qty: 30 RF: 3 clonazepam [Klonopin] 0.5 mg tablet 0.5 mg PO BID Qty: 60 RF: 3 lamotrigine 150 mg tablet 150 mg PO BID RF: 0 levetiracetam [Keppra XR] 750 mg tablet extended release 24 hr 1,500 mg PO DAILY@0900 Qty: 60 RF: 2 melatonin 10 mg capsule 10 mg PO BEDTIME@2100 PRN (Reason: sleep) RF: 0 Keflex 500 mg capsule 500 mg PO Q8H Qty: 7 RF: 0 Discharge Orders: Discharge ED (Routine); Ordered 12/31/20 Ordered By: Sarah Huizar Referrals: Melonie Lyman MD [Primary Care Provider] - Discharge Diet: Usual diet Discharge Activity: Limit activity as instructed Patient Instructions: Epilepsy (ED), Methamphetamine Abuse (ED), Opioid Safety Activity Restrictions/Additional Instructions: Rest at home today and tomorrow Do not drive Take seizure medications at the same time every day Follow-up with neurology as scheduled Return to the emergency department if you develop fever, worst headache of your life or other concerning symptoms Coding Level of Care Code ED Morphologist for Chg Fwd Exam Comprehensive
[2020-12-31 00:09] LABS: Basophils # 0.1 10^3/uL (0.0-0.1); Basophils % 0.5 %; Eosinophils # 0.1 10^3/uL (0.0-0.8); Eosinophils % 1.4 %; Hematocrit 46.2 % (42.0-52.0); Hemoglobin 15.3 g/dL (11.7-16.6); Lymphocytes # 1.3 10^3/uL (0.8-4.8); Lymphocytes % 13.4 %; Mean Corpuscular HGB Conc 33.1 g/dL (30.0-36.0); Mean Corpuscular Hemoglobin 30.4 pg (28.0-34.0); Mean Corpuscular Volume 91.8 fL (80-94); Monocytes # 0.6 10^3/uL (0.2-0.9); Monocytes % 5.7 %; Neutrophils # 7.83 10^3/uL (1.8-7.7); Neutrophils % 78.7 %; Nucleated Red Blood Cells % 0 %; Platelet Count 290 10^3/cmm (130-400); Red Blood Count 5.03 10^6/uL (4.1-5.3); Red Cell Distribution Width 12.6 % (12.1-15.1)
--- NOTE | 2020-12-31 00:09 | PC.NURSE ---
patient to ct
[2020-12-31] MEDS: levETIRAcetam 750 MG in sodium chloride 0.9% (100 ml) 100 ML 430 MG IV (00:16)
[2020-12-31 00:18] VITALS: BP 158/94; PULSE 78; RESP 16; O2SAT 100
[2020-12-31 00:27] LABS: Alanine Aminotransferase 13 U/L (0-41); Alkaline Phosphatase 92 IU/L (40-130); Anion Gap 10.9 (5-19); Aspartate Amino Transferase 16 U/L (0-40); Blood Urea Nitrogen 12 mg/dL (6-20); Calcium 8.5 mg/dL (8.5-10.5); Carbon Dioxide 31 mmol/L (22-29); Chloride 101 mmol/L (98-107); Globulin 2.4 g/dL (1.3-4.6); Glomerular Filtration Rate 90.4 mL/min (90-130); Glucose 117 mg/dL (65-115); Osmolality Calculated 289 mOsm/kg (285-295); Potassium 3.9 mmol/L (3.5-5.1); Sodium 139 mmol/L (136-145); Total Bilirubin 0.2 mg/dL (0.15-1.2); Total Protein 6.4 g/dL (6.6-8.7)
[2020-12-31 00:57] VITALS: BP 117/99; PULSE 81
[2020-12-31 00:58] LABS: Magnesium 1.9 mg/dL (1.7-2.3)
[2020-12-31 01:16] VITALS: PULSE 76; RESP 21; O2SAT 99
[2020-12-31 01:30] LABS: Amphetamines Screen Urine Positive (Negative); Barbiturates Screen Urine Negative (Negative); Benzodiazepines Screen Urine Negative (Negative); Cocaine Screen Urine Negative (Negative); Opiate Screen Urine Negative (Negative); PCP Screen Urine Negative (Negative); THC Screen Urine Negative (Negative)
[2020-12-31] MEDS: acetaminophen 500 mg Tablet 1000 MG PO (01:33)
[2020-12-31 02:33] VITALS: BP 140/98; PULSE 98; RESP 18; O2SAT 95
== END 2020-12-31 02:35 | disposition home or self-care (01) ==
PROVIDERS: Emergency Provider Nurse Practitioner Family; PCP Specialist
DX: G40.909 Epilepsy, unspecified, not intractable, without status epilepticus (principal); F15.10 Other stimulant abuse, uncomplicated; F17.210 Nicotine dependence, cigarettes, uncomplicated
CPT/HCPCS: 70450; 80053; 80306; 83735; 85025; 93005; 96374; 99284; J1953

== ENCOUNTER 2020-12-31 05:30 | Emergency (ER) | payer MEDICARE, SELFPAY ==
[2020-12-31 05:30] VITALS: BP 116/70; PULSE 86; RESP 20; TEMP 36.9; O2SAT 100; BMI 22.8
--- NOTE | 2020-12-31 05:34 | ECG_ITS ---
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 Measurements Intervals [place] Rate: 87 P: 74 [place]: 146 QRS: 84 QRSD: 113 T: 67 QT: 369 QTc: 446 Interpretive Statements SINUS RHYTHM RIGHT ATRIAL ENLARGEMENT [0.3mV P WAVE] INCOMPLETE RIGHT BUNDLE BRANCH BLOCK [90+ ms QRS DURATION, TERMINAL R IN V1/V2, 40+ ms S IN I/aVL/V4/V5/V6] JUNCTIONAL ST DEPRESSION, CONSIDER NORMAL VARIANT [0.1+ mV JUNCTIONAL DEPRESSION] Compared to ECG 12/30/2020 23:48:06 Atrial abnormality now present Incomplete right bundle-branch block now present ST (T wave) deviation now present Electronically Signed On 01-01-2021 12:22:24 CDT by Romi Lowe M.D. [id number]
--- NOTE | 2020-12-31 05:34 | XRR_ITS ---
PROCEDURE INFORMATION: Exam: XR Chest Exam date and time: 12/31/2020 6:00 AM Age: 45 years old Clinical indication: Other: AMS; Prior surgery; Surgery type: Stimulator, appy TECHNIQUE: Imaging protocol: XR of the chest. Views: 1 view. COMPARISON: CR XR chest 2V* [id number] 10/24/2020 9:18 AM FINDINGS: Tubes, catheters and devices: Apparent neural stimulator again overlies the left upper hemithorax. Lungs: No CHF/pulmonary edema. Visible lungs appear essentially clear. Pleural spaces: No visible pneumothorax. No definite pleural fluid. Heart/Mediastinum: Heart size is within normal limits. Bones/joints: No significant acute finding. XR/XR chest 1V portable [id number] IMPRESSION: 1. No definite CHF or pneumonia. 2. Other findings discussed above.
--- NOTE | 2020-12-31 05:35 | W.ED.AMS ---
Documented by User: Srinivasan Lane MD 12/31/20 05:38 HPI - Altered Mental Status General: Chief Complaint: Altered Mental Status Stated Complaint: ams Time Seen by Provider: 12/31/20 05:33 Source: patient and EMS Mode of arrival: EMS Limitations: altered mental status History of Present Illness: HPI narrative: 45-year-old male history of methamphetamine abuse. He was seen here earlier in the night for possible seizure. He had tested positive for methamphetamine and was observed. Patient left probably 3 to 4 hours ago when called EMS again as he has been altered. Here he will not tell me his name he does not know who the president is but does not know the date or the where he is at. Review of Systems General: Reports: ROS unobtainable due to mental status PFS ED PFSH: Medical History (Updated 12/31/20 @ 07:25 by Saji Melton DO) Amphetamine dependence, continuous Amphetamine dependence, in remission January 2020 Generalized anxiety disorder Major depressive disorder, recurrent severe without psychotic features Nicotine dependence, cigarettes, uncomplicated Surgical History History of appendectomy Status post placement of VNS (vagus nerve stimulation) device 2007 [place], [place] VNS placement Family History Grandfather CAD (coronary artery disease) Hypertension Grandmother Cancer Stroke Social History Smoking and tobacco status: current every day smoker cigarettes Packs smoked per day: 1 Alcohol intake: never Household members: significant other Marital status: Single Current occupational status: disabled History of recent travel: No Physical Exam Const: COMMON NORMALS: alert; negative for patient oriented x3 EXAM LIMITATIONS: altered mental status GENERAL APPEARANCE: disheveled ORIENTATION/CONSCIOUSNESS: Yes oriented to person; not oriented to place and not oriented to time HENMT: COMMON NORMALS: normocephalic and atraumatic HEAD & SCALP: normocephalic and atraumatic Eye: COMMON NORMALS: Equal, round and reactive pupils present and EOMs intact bilaterally PUPIL: Yes Equal, round and reactive pupils present Neck/C-Spine: COMMON NORMALS: full ROM and supple Chest: COMMONS NORMALS: normal inspection of the chest and normal palpation of entire chest wall Resp: COMMON NORMALS: normal respiratory effort, No retractions, No use of accessory muscles and clear to auscultation bilaterally AUSCULTATION: clear to auscultation bilaterally Cardio: COMMON NORMALS: regular rate, regular rhythm and No murmurs present (Cardio) RATE: regular rate RHYTHM: regular rhythm GI: COMMON NORMALS: Normal to inspection, nondistended, normoactive bowel sounds present, Soft to palpation, non-tender and no masses PALPATION: Yes Soft to palpation Extremity: COMMON NORMALS: normal to inspection and full ROM Neuro: COMMON NORMALS: moves all extremities and no focal motor deficits; negative for patient oriented x3 SENSORIUM/ORIENTATION: Yes alert, Yes oriented to person, No oriented to place and No oriented to time Psych: COMMON NORMALS: mental status grossly normal, Normal thought process present and cooperative THOUGHT PROCESS: Normal thought process present Skin: COMMON NORMALS: no rashes or lesions noted and no wounds GENERAL SKIN EXAM: no rashes or lesions noted Course Vital Signs: Vital signs: Vital Signs Temperature 98.4 F 12/31/20 05:30 Pulse Rate 89 12/31/20 05:52 Respiratory Rate 18 12/31/20 06:39 Blood Pressure 126/82 12/31/20 05:52 Pulse Oximetry 92 12/31/20 05:52 MDM - Altered Mental Status Lab Data: Labs: Lab Results 12/31/20 12/31/20 Range/Units 05:46 05:46 WBC 7.3 (4.0-10.0) 10^3/ uL RBC 5.10 (4.1-5.3) 10^6/u L Hgb 15.4 (11.7-16.6) g/dL Hct 44.8 (42.0-52.0) % MCV 87.8 (80-94) fL MCH 30.2 (28.0-34.0) pg MCHC 34.4 (30.0-36.0) g/dL RDW 12.1 (12.1-15.1) % Plt Count 337 (130-400) 10^3/c mm MPV 9.3 (7.4-10.4) fL Neut % (Auto) 77.3 % Lymph % (Auto) 16.3 % Traill % (Auto) 5.6 % Eos % (Auto) 0.1 % Baso % (Auto) 0.4 % Neut # (Auto) 5.61 (1.8-7.7) 10^3/u L Lymph # (Auto) 1.2 (0.8-4.8) 10^3/u L Traill # (Auto) 0.4 (0.2-0.9) 10^3/u L Eos # (Auto) 0.0 (0.0-0.8) 10^3/u L Baso # (Auto) 0.0 (0.0-0.1) 10^3/u L Nucleated RBC % (a uto) 0 % Nucleated RBCs # 0.0 /100WBC Sodium 140 (136-145) mmol/L Potassium 4.0 (3.5-5.1) mmol/L Chloride 104 (98-107) mmol/L Carbon Dioxide 22 (22-29) mmol/L Anion Gap 18.0 (5-19) BUN 10 (6-20) mg/dL Creatinine 1.0 (0.7-1.2) mg/dL GFR Calculation 80.1 L (90-130) mL/min Glucose 109 (65-115) mg/dL Calculated Osmolal ity 290 (285-295) mOsm/k g Calcium 9.2 (8.5-10.5) mg/dL Total Bilirubin 0.3 (0.15-1.2) mg/dL AST 20 (0-40) U/L ALT 15 (0-41) U/L Alkaline Phosphata se 100 (40-130) IU/L Total Protein 7.1 (6.6-8.7) g/dL Albumin 4.5 (3.5-5.2) g/dL Globulin 2.6 (1.3-4.6) g/dL Discharge Plan Discharge Patient Disposition: Home Clinical Impression: Methamphetamine intoxication, Methamphetamine addiction Condition: Stable Prescriptions: No Action duloxetine [Cymbalta] 60 mg capsule,delayed release(DR/EC) 60 mg PO .morning Qty: 30 RF: 3 clonazepam [Klonopin] 0.5 mg tablet 0.5 mg PO BID Qty: 60 RF: 3 lamotrigine 150 mg tablet 150 mg PO BID RF: 0 levetiracetam [Keppra XR] 750 mg tablet extended release 24 hr 1,500 mg PO DAILY@0900 Qty: 60 RF: 2 melatonin 10 mg capsule 10 mg PO BEDTIME@2100 PRN (Reason: sleep) RF: 0 Keflex 500 mg capsule 500 mg PO Q8H Qty: 7 RF: 0 magnesium oxide 400 mg magnesium tablet 400 mg PO BID Qty: 60 RF: 0 Discharge Orders: Discharge ED (Routine); Ordered 12/31/20 Ordered By: Saji Melton Referrals: Melonie Lyman MD [Primary Care Provider] - Discharge Diet: Usual diet Discharge Activity: Increase activity as tolerated Patient Instructions: Opioid Safety Activity Restrictions/Additional Instructions: Do not use methamphetamines Sign Out Sign Out Data: Patient Sign Out occurred on 12/31/20 at 05:52. Patient's care was discussed, and care was transferred from to Saji Melton DO. Coding Level of Care Code ED Radio Communication Coordinator for Chg Fwd Exam Comprehensive Documented by User: Saji Melton DO 12/31/20 07:27 HPI - Altered Mental Status General: Chief Complaint: Altered Mental Status Stated Complaint: ams Time Seen by Provider: 12/31/20 05:33 [facility] ED PFSH: Medical History (Updated 12/31/20 @ 07:25 by Saji Melton DO) Amphetamine dependence, continuous Amphetamine dependence, in remission January 2020 Generalized anxiety disorder Major depressive disorder, recurrent severe without psychotic features Nicotine dependence, cigarettes, uncomplicated Surgical History History of appendectomy Status post placement of VNS (vagus nerve stimulation) device 2007 [place], [place] VNS placement Family History Grandfather CAD (coronary artery disease) Hypertension Grandmother Cancer Stroke Social History Smoking and tobacco status: current every day smoker cigarettes Packs smoked per day: 1 Alcohol intake: never Household members: significant other Marital status: Single Current occupational status: disabled History of recent travel: No Course Vital Signs: Vital signs: Vital Signs Temperature 98.4 F 12/31/20 05:30 Pulse Rate 89 12/31/20 05:52 Respiratory Rate 18 12/31/20 06:39 Blood Pressure 126/82 12/31/20 05:52 Pulse Oximetry 92 12/31/20 05:52 MDM - Altered Mental Status MDM Narrative: Medical decision making narrative: Patient awake and alert answers questions. He denies the use of methamphetamines however is positive test earlier today would indicate otherwise. He is behaving consistent with methamphetamine use repeat exam is unremarkable beyond his nystagmus and erratic behavior. He is able to converse is awake and alert. Laboratory tests do not show significant abnormality. Will discharge patient home with the recommendation that he follow-up with [facility]. Patient advised to stop using methamphetamines. Lab Data: Labs: Lab Results 12/31/20 12/31/20 Range/Units 05:46 05:46 WBC 7.3 (4.0-10.0) 10^3/ uL RBC 5.10 (4.1-5.3) 10^6/u L Hgb 15.4 (11.7-16.6) g/dL Hct 44.8 (42.0-52.0) % MCV 87.8 (80-94) fL MCH 30.2 (28.0-34.0) pg MCHC 34.4 (30.0-36.0) g/dL RDW 12.1 (12.1-15.1) % Plt Count 337 (130-400) 10^3/c mm MPV 9.3 (7.4-10.4) fL Neut % (Auto) 77.3 % Lymph % (Auto) 16.3 % Traill % (Auto) 5.6 % Eos % (Auto) 0.1 % Baso % (Auto) 0.4 % Neut # (Auto) 5.61 (1.8-7.7) 10^3/u L Lymph # (Auto) 1.2 (0.8-4.8) 10^3/u L Traill # (Auto) 0.4 (0.2-0.9) 10^3/u L Eos # (Auto) 0.0 (0.0-0.8) 10^3/u L Baso # (Auto) 0.0 (0.0-0.1) 10^3/u L Nucleated RBC % (a uto) 0 % Nucleated RBCs # 0.0 /100WBC Sodium 140 (136-145) mmol/L Potassium 4.0 (3.5-5.1) mmol/L Chloride 104 (98-107) mmol/L Carbon Dioxide 22 (22-29) mmol/L Anion Gap 18.0 (5-19) BUN 10 (6-20) mg/dL Creatinine 1.0 (0.7-1.2) mg/dL GFR Calculation 80.1 L (90-130) mL/min Glucose 109 (65-115) mg/dL Calculated Osmolal ity 290 (285-295) mOsm/k g Calcium 9.2 (8.5-10.5) mg/dL Total Bilirubin 0.3 (0.15-1.2) mg/dL AST 20 (0-40) U/L ALT 15 (0-41) U/L Alkaline Phosphata se 100 (40-130) IU/L Total Protein 7.1 (6.6-8.7) g/dL Albumin 4.5 (3.5-5.2) g/dL Globulin 2.6 (1.3-4.6) g/dL Discharge Plan Discharge Patient Disposition: Home Clinical Impression: Methamphetamine intoxication, Methamphetamine addiction Condition: Stable Prescriptions: No Action duloxetine [Cymbalta] 60 mg capsule,delayed release(DR/EC) 60 mg PO .morning Qty: 30 RF: 3 clonazepam [Klonopin] 0.5 mg tablet 0.5 mg PO BID Qty: 60 RF: 3 lamotrigine 150 mg tablet 150 mg PO BID RF: 0 levetiracetam [Keppra XR] 750 mg tablet extended release 24 hr 1,500 mg PO DAILY@0900 Qty: 60 RF: 2 melatonin 10 mg capsule 10 mg PO BEDTIME@2100 PRN (Reason: sleep) RF: 0 Keflex 500 mg capsule 500 mg PO Q8H Qty: 7 RF: 0 magnesium oxide 400 mg magnesium tablet 400 mg PO BID Qty: 60 RF: 0 Discharge Orders: Discharge ED (Routine); Ordered 12/31/20 Ordered By: Saji Melton Referrals: Melonie Lyman MD [Primary Care Provider] - Discharge Diet: Usual diet Discharge Activity: Increase activity as tolerated Patient Instructions: Opioid Safety Activity Restrictions/Additional Instructions: Do not use methamphetamines Sign Out Sign Out Data: Patient Sign Out occurred on 12/31/20 at 05:52. Patient's care was discussed, and care was transferred from to Saji Melton DO. Coding Level of Care Code ED Radio Communication Coordinator for Chg Fwd Exam Comprehensive
[2020-12-31 05:52] VITALS: BP 126/82; PULSE 89; RESP 18; O2SAT 92
[2020-12-31] MEDS: LORazepam 2 mg/mL INJ 1 mL 1 MG IVP (05:52)
[2020-12-31 05:53] LABS: Basophils % 0.4 %; Eosinophils % 0.1 %; Hematocrit 44.8 % (42.0-52.0); Hemoglobin 15.4 g/dL (11.7-16.6); Lymphocytes # 1.2 10^3/uL (0.8-4.8); Lymphocytes % 16.3 %; Mean Corpuscular HGB Conc 34.4 g/dL (30.0-36.0); Mean Corpuscular Hemoglobin 30.2 pg (28.0-34.0); Mean Corpuscular Volume 87.8 fL (80-94); Mean Platelet Volume 9.3 fL (7.4-10.4); Monocytes # 0.4 10^3/uL (0.2-0.9); Monocytes % 5.6 %; Neutrophils # 5.61 10^3/uL (1.8-7.7); Neutrophils % 77.3 %; Nucleated Red Blood Cells % 0 %; Platelet Count 337 10^3/cmm (130-400); Red Cell Distribution Width 12.1 % (12.1-15.1); White Blood Count 7.3 10^3/uL (4.0-10.0)
[2020-12-31 06:18] LABS: Alanine Aminotransferase 15 U/L (0-41); Albumin Level 4.5 g/dL (3.5-5.2); Alkaline Phosphatase 100 IU/L (40-130); Aspartate Amino Transferase 20 U/L (0-40); Blood Urea Nitrogen 10 mg/dL (6-20); Calcium 9.2 mg/dL (8.5-10.5); Carbon Dioxide 22 mmol/L (22-29); Chloride 104 mmol/L (98-107); Globulin 2.6 g/dL (1.3-4.6); Glomerular Filtration Rate 80.1 mL/min (90-130); Glucose 109 mg/dL (65-115); Osmolality Calculated 290 mOsm/kg (285-295); Sodium 140 mmol/L (136-145); Total Bilirubin 0.3 mg/dL (0.15-1.2); Total Protein 7.1 g/dL (6.6-8.7)
[2020-12-31 06:39] VITALS: RESP 18
--- NOTE | 2020-12-31 06:57 | PC.NURSE ---
Patient is pacing around his room hugo Villafana, my Lord . Patient was instructed to lay down for his safety.
--- NOTE | 2020-12-31 07:13 | PC.NURSE ---
Patient out of bed speaking with his brother.
--- NOTE | 2020-12-31 07:28 | PC.NURSE ---
on the way to get patient.
[2020-12-31 07:50] VITALS: BP 139/74; PULSE 105; RESP 16; O2SAT 98
== END 2020-12-31 08:25 | disposition home or self-care (01) ==
PROVIDERS: Emergency Medicine; Emergency Provider Family Medicine; PCP Specialist
DX: F15.229 Other stimulant dependence with intoxication, unspecified (principal); F17.210 Nicotine dependence, cigarettes, uncomplicated
CPT/HCPCS: 71045; 80053; 85025; 93005; 96374; 99283; J2060

== ENCOUNTER → 2021-01-16 15:25 | Outpatient (BNVA) | payer MEDICARE, SELFPAY | PROVIDERS: PCP Specialist; Visit Provider Specialist | DX: G40.909 Epilepsy, unspecified, not intractable, without status epilepticus (principal); Z96.89 Presence of other specified functional implants; F17.210 Nicotine dependence, cigarettes, uncomplicated | CPT/HCPCS: 99214 ==

== ENCOUNTER → 2021-02-07 07:21 | Outpatient (BNVA) | payer MEDICARE, SELFPAY | PROVIDERS: PCP Specialist; Visit Provider Nurse Practitioner Psychiatric/Mental Health | DX: F33.2 Major depressive disorder, recurrent severe without psychotic features (principal); F41.1 Generalized anxiety disorder; F15.21 Other stimulant dependence, in remission; F17.210 Nicotine dependence, cigarettes, uncomplicated | CPT/HCPCS: 99214 ==

== ENCOUNTER → 2021-03-13 14:57 | Outpatient (BNVA) | payer MEDICARE, SELFPAY | PROVIDERS: PCP Specialist; Visit Provider Family Medicine | DX: Z00.00 Encounter for general adult medical examination without abnormal findings (principal); G40.909 Epilepsy, unspecified, not intractable, without status epilepticus; Z80.42 Family history of malignant neoplasm of prostate; R53.83 Other fatigue; Z68.24 Body mass index [BMI] 24.0-24.9, adult; F17.210 Nicotine dependence, cigarettes, uncomplicated; Z71.89 Other specified counseling | CPT/HCPCS: 80053; 80061; 84153; 84403; 84443; 85025 ==

== ENCOUNTER → 2021-03-20 10:58 | Outpatient (BNVA) | payer MEDICARE, SELFPAY | PROVIDERS: PCP Specialist; Visit Provider Family Medicine | DX: Z02.83 Encounter for blood-alcohol and blood-drug test (principal) | CPT/HCPCS: 80307 ==

== ENCOUNTER → 2021-04-22 11:06 | Outpatient (BNVA) | payer MEDICARE, SELFPAY | PROVIDERS: PCP Specialist; Referring Provider Family Medicine; Visit Provider Urology | DX: R97.20 Elevated prostate specific antigen [PSA] (principal); Z80.42 Family history of malignant neoplasm of prostate; F41.1 Generalized anxiety disorder | CPT/HCPCS: 81003; 84153 ==

== ENCOUNTER → 2021-05-02 07:08 | Outpatient (BNVA) | payer MEDICARE, SELFPAY | PROVIDERS: PCP Specialist; Visit Provider Nurse Practitioner Psychiatric/Mental Health | DX: F33.2 Major depressive disorder, recurrent severe without psychotic features (principal); F41.1 Generalized anxiety disorder; F15.21 Other stimulant dependence, in remission; F17.210 Nicotine dependence, cigarettes, uncomplicated | CPT/HCPCS: 99214 ==

== ENCOUNTER → 2021-05-10 10:49 | Outpatient (BNVA) | payer MEDICARE, SELFPAY | PROVIDERS: PCP Specialist; Visit Provider Urology | DX: R97.20 Elevated prostate specific antigen [PSA] (principal) | CPT/HCPCS: 88305 ==

== ENCOUNTER → 2021-05-24 11:51 | Outpatient (BNVA) | payer MEDICARE, SELFPAY | PROVIDERS: PCP Specialist; Visit Provider Urology | DX: R97.20 Elevated prostate specific antigen [PSA] (principal) | CPT/HCPCS: 81003 ==

== ENCOUNTER 2021-06-02 07:13 | Emergency (ER) | payer MEDICARE, SELFPAY ==
--- NOTE | 2021-06-02 07:21 | CTR_ITS ---
PROCEDURE INFORMATION: Exam: CT Cervical Spine Without Contrast Exam date and time: 06/02/2021 7:21 AM Age: 45 years old Clinical indication: Injury or trauma; Fall; Blunt trauma; Prior surgery; Surgery date: 6+ months; Surgery type: Dorsal spine stimulator TECHNIQUE: Imaging protocol: Computed tomography images of the cervical spine without contrast. Radiation optimization: All CT scans at this facility use at least one of these dose optimization techniques: automated exposure control; mA and/or kV adjustment per patient size (includes targeted exams where dose is matched to clinical indication); or iterative reconstruction. COMPARISON: CT Cervical Spine wo* [id number] 12/01/2018 4:52 AM RADIATION DOSE METRICS: Total DLP (mGy-cm): 389.02 FINDINGS: Bones/joints: No acute fracture. Vertebral body heights are well maintained. No spine curvature seen. There is straightening of the normal cervical lordosis, without listhesis. No subluxation identified. Discs/Spinal canal/Neural foramina: There is multilevel degenerative changes, manifested by intervertebral disc space narrowing, endplate osteophytes and facet joint arthrosis, resulting in [id number] neural foraminal narrowing at C4-C5, C5-C6 and C6-C7 bilaterally. No significant disc protrusion. No severe spinal canal stenosis. Lungs: Lung apices are normal. Soft tissues: Unremarkable. CT/CT cervical spin wo con* [id number] IMPRESSION: No acute findings. Radiation Dose CTDIVOL = (mGy): DLP = 389.02 (mGy-cm)
--- NOTE | 2021-06-02 07:21 | XRR_ITS ---
PROCEDURE INFORMATION: Exam: XR Right Tibia and Fibula Exam date and time: 06/02/2021 7:21 AM Age: 45 years old Clinical indication: Injury or trauma; Fall; Blunt trauma; Knee and lower leg; Right TECHNIQUE: Imaging protocol: XR Right tibia and fibula. Views: 2 views. COMPARISON: No relevant prior studies available. FINDINGS: Bones/joints: No fracture or dislocation. Joint spaces are well maintained. Soft tissues: Normal. XR/XR tibia fibula RT 2V [id number] IMPRESSION: No acute osseous injury.
--- NOTE | 2021-06-02 07:21 | XRR_ITS ---
PROCEDURE INFORMATION: Exam: XR Right Knee Exam date and time: 06/02/2021 7:21 AM Age: 45 years old Clinical indication: Injury or trauma; Fall; Blunt trauma; Knee and lower leg; Right TECHNIQUE: Imaging protocol: XR Right knee. Views: 1 or 2 views. COMPARISON: CR (LOW EXM, ) 06/02/2021 7:34 AM FINDINGS: Bones/joints: No fracture or dislocation. Joint spaces are well maintained. A small joint effusion is present. Soft tissues: Normal. XR/XR knee RT 1-2V [id number] IMPRESSION: No acute osseous injury.
--- NOTE | 2021-06-02 07:21 | CTR_ITS ---
PROCEDURE INFORMATION: Exam: CT Head Without Contrast Exam date and time: 06/02/2021 7:21 AM Age: 45 years old Clinical indication: Injury or trauma; Fall; Blunt trauma (contusions or hematomas) TECHNIQUE: Imaging protocol: Computed tomography of the head without contrast. Radiation optimization: All CT scans at this facility use at least one of these dose optimization techniques: automated exposure control; mA and/or kV adjustment per patient size (includes targeted exams where dose is matched to clinical indication); or iterative reconstruction. COMPARISON: CT head wo con* [id number] 12/31/2020 12:21 AM RADIATION DOSE METRICS: Total DLP (mGy-cm): 988.63 FINDINGS: Brain: Normal. No hemorrhage. Unremarkable white matter. No mass effect. Cerebral ventricles: No ventriculomegaly. Paranasal sinuses: Visualized sinuses are unremarkable. No fluid levels. Mastoid air cells: Visualized mastoid air cells are well aerated. Bones/joints: Unremarkable. No acute fracture. Soft tissues: A 3.3 cm lipoma is noted in the mid occipital scalp. CT/CT head wo con* [id number] IMPRESSION: No acute intracranial abnormality. Radiation Dose CTDIVOL = (mGy): DLP = 988.63 (mGy-cm)
--- NOTE | 2021-06-02 07:21 | CTR_ITS ---
PROCEDURE INFORMATION: Exam: CT Chest With Contrast; Diagnostic Exam date and time: 06/02/2021 7:21 AM Age: 45 years old Clinical indication: Injury or trauma; Fall; Generalized; Blunt trauma (contusions or hematomas); Prior surgery; Surgery date: 6+ months; Surgery type: Spinal stimulator TECHNIQUE: Imaging protocol: Diagnostic computed tomography of the chest with contrast. Radiation optimization: All CT scans at this facility use at least one of these dose optimization techniques: automated exposure control; mA and/or kV adjustment per patient size (includes targeted exams where dose is matched to clinical indication); or iterative reconstruction. Contrast material: OMNIPAQUE 300; Contrast volume: 95 ml; Contrast route: INTRAVENOUS (IV); COMPARISON: CT Chest/Abdomen/Pelvis w IV* 12/01/2018 4:59 AM RADIATION DOSE METRICS: Total DLP (mGy-cm): 736.67 FINDINGS: Tubes, catheters and devices: Spinal stimulator noted in the left upper chest. Lungs: Minimal bilateral dependent atelectasis noted. Pleural spaces: Unremarkable. No pneumothorax. No pleural effusion. Heart: Unremarkable. No cardiomegaly. No pericardial effusion. Aorta: Unremarkable. No aortic aneurysm. Lymph nodes: Unremarkable. No enlarged lymph nodes. Bones/joints: Degenerative changes of the spine seen. Soft tissues: Unremarkable. IMPRESSION: No acute injury. PROCEDURE INFORMATION: Exam: CT Abdomen And Pelvis With Contrast Exam date and time: 06/02/2021 7:21 AM Age: 45 years old Clinical indication: Injury or trauma; Fall; Generalized; Blunt trauma (contusions or hematomas); Prior surgery; Surgery date: 6+ months; Surgery type: Spinal stimulator TECHNIQUE: Imaging protocol: Computed tomography of the abdomen and pelvis with contrast. Radiation optimization: All CT scans at this facility use at least one of these dose optimization techniques: automated exposure control; mA and/or kV adjustment per patient size (includes targeted exams where dose is matched to clinical indication); or iterative reconstruction. Contrast material: OMNIPAQUE 300; Contrast volume: 95 ml; Contrast route: INTRAVENOUS (IV); COMPARISON: CT Chest/Abdomen/Pelvis w IV* 12/01/2018 4:59 AM RADIATION DOSE METRICS: Total DLP (mGy-cm): 736.67 FINDINGS: Liver: Normal. No mass. Gallbladder and bile ducts: Normal. No calcified stones. No ductal dilation. Pancreas: Normal. No ductal dilation. Spleen: Normal. No splenomegaly. Adrenal glands: Normal. No mass. Kidneys and ureters: Normal. No hydronephrosis. Stomach and bowel: Unremarkable. No obstruction. No mucosal thickening. Appendix: No evidence of appendicitis. Intraperitoneal space: Unremarkable. No free air. No significant fluid collection. Vasculature: Unremarkable. No abdominal aortic aneurysm. Lymph nodes: Unremarkable. No enlarged lymph nodes. Urinary bladder: Unremarkable as visualized. Reproductive: Unremarkable as visualized. Bones/joints: Left L5 pars fracture is re-identified. Soft tissues: Unremarkable. CT/CT chest abd pel w con* IMPRESSION: No acute injury. Radiation Dose CTDIVOL = (mGy): DLP = 736.67~736.67 (mGy-cm)
--- NOTE | 2021-06-02 07:21 | W.ED.TRAUMA ---
HPI - Trauma General: Chief Complaint: Fall Stated Complaint: RLE PAIN/LEFT HIP PAIN S/P FALL DOWN STAIRS Time Seen by Provider: 06/02/21 07:15 History of Present Illness: HPI narrative: Mr Stone is a 45-year-old gentleman with history of seizure disorder and prostate cancer not on chemotherapy who presents emergency department due to fall pain. He reports being at his baseline health and went out to smoke a cigarette today. He has a porch that is approximately 10 feet off the ground with concrete steps. He is unsure of exactly what happened however he lost his balance and fell down the stairs. He primarily complains of left shoulder, bilateral hip, and right lower leg pain. EMS gave him about 1 mg of Dilaudid and 100 fentanyl as well as some Zofran he continues to have moderate to severe intensity pain which is worse with movement and palpation. He does not think that he lost consciousness. He denies frequent episodes of similar in the past. Review of Systems General: Reports: 10 or more systems reviewed and unremarkable except in HPI and below PFSH ED PFSH: Medical History Amphetamine dependence, in remission January 2020 Elevated PSA Generalized anxiety disorder Major depressive disorder, recurrent severe without psychotic features Nicotine dependence, cigarettes, uncomplicated Prostate cancer Surgical History History of appendectomy Status post placement of VNS (vagus nerve stimulation) device 2007 [place], [place] VNS placement Family History Grandfather CAD (coronary artery disease) Hypertension Grandmother Cancer Stroke Mother , AT AGE 55 Shotgun accident Social History Alcohol intake: never Marital status: Current occupational status: disabled History of recent travel: No Physical Exam Narrative: EXAM NARRATIVE: GENERAL/CONSTITUTIONAL -significantly uncomfortable-appearing. Distress due to pain Eyes - PERRL, no conjunctival injection ENMT - Atraumatic external nose and ears. Moist mucous membranes NECK -c-collar in place. Trachea midline. CARDIOVASCULAR -tachycardic rate and rhythm. Peripheral pulses 2+ and equal RESPIRATORY -clear to auscultation bilaterally. No retractions or accessory muscle use. ABDOMEN/GI - Nontender/Nondistended. No tenderness to percussion or evidence of peritonitis MSK -tenderness palpation of left shoulder without obvious deformity. Right knee and tib-fib tender to palpation, scattered abrasions/superficial lacerations to the lower extremities. SKIN - Warm, Dry NEURO - alert and appropriately oriented. Moves all extremities equally. Course ED course: - Patient was seen and evaluated by me at bedside - Patient placed on cardiac monitors, IV access obtained - Initial evaluation notable for moderate to marked distressed due to pain. Patient has marked tenderness to palpation of the right mid lower leg. There is overlying abrasions to the lower extremities. -Analgesia given - Given level of distress despite prehospital fentanyl and Dilaudid as well as possibility of distracting injury given marked tenderness to palpation of the right lower extremity imaging warranted. Imaging notable for no evidence of fracture or acute internal injury. - Upon serial reexamination after treatment the patient was improved - Based on patient history, evaluation, labs, and imaging as interpreted the most likely cause of the patient's condition is soft tissue injury secondary to fall - The results of ED evaluation were given to the patient including prescriptions and/or symptomatic cares (if applicable) including appropriate and responsible use, followup plan, and return precautions. The patient verbalized understanding and felt safe for discharge. - Patient discharged in satisfactory condition. Tdap up-to-date Vital Signs: Vital signs: Vital Signs Temperature 98.7 F 06/02/21 07:23 Pulse Rate 60 06/02/21 07:41 Respiratory Rate 18 06/02/21 09:38 Blood Pressure 140/90 06/02/21 07:41 Pulse Oximetry 98 06/02/21 09:38 MDM - Trauma Medical Records: Attestation: I reviewed the patient's medical records. Lab Data: Attestation: I reviewed the patient's lab results. Labs: Lab Results 06/02/21 Range/Units 07:42 POC Glucose 114 H (70-110) mg/dL Discharge Plan Discharge Patient Disposition: Home Clinical Impression: Fall (on) (from) other stairs and steps, initial encounter, Multiple contusions, Multiple abrasions, Acute pain Condition: Stable Prescriptions: No Action levetiracetam [Keppra XR] 750 mg tablet extended release 24 hr 1,500 mg PO DAILY@0900 Qty: 60 RF: 5 lamotrigine 150 mg tablet 150 mg PO BID Qty: 60 RF: 5 duloxetine [Cymbalta] 60 mg capsule,delayed release(DR/EC) 60 mg PO .morning Qty: 30 RF: 3 clonazepam [Klonopin] 0.5 mg tablet 0.5 mg PO BID Qty: 60 RF: 3 oxycodone-acetaminophen [Percocet] 5-325 mg tablet 1 tab PO ONCE PRN (Reason: painful procedure) 1 Days Qty: 5 RF: 0 melatonin 10 mg capsule 10 mg PO BEDTIME@2100 PRN (Reason: sleep) RF: 0 Discharge Orders: Discharge ED (Routine); Ordered 06/02/21 Ordered By: Tyler Malcolm Referrals: Melonie Lyman MD [Primary Care Provider] - Discharge Diet: Usual diet Discharge Activity: Increase activity as tolerated Patient Instructions: Contusion in Adults (ED), Abrasion (ED), Fall Prevention (ED), Opioid Safety Activity Restrictions/Additional Instructions: Thank you for visiting the emergency department. You were seen and evaluated for a fall. No internal injuries or broken bones were identified. Your pain is most likely due to soft tissue injury such as contusions. You were also noted to have abrasions which are not amenable to suturing or other ED repair. Please perform local wound care. Please return to the emergency department for anything that you are concerned about and feel needs emergency department evaluation. Please follow-up with your primary care provider. He may use [id number] medications for your discomfort however please do not exceed the daily recommended dosage and please keep in mind that many namebrand medications contain the same active ingredients. Additionally ice (not directly applied to skin), heat, or topical creams may help. Coding Level of Care Code ED Elevator Repairer Apprentice for Oneida Granados
[2021-06-02 07:23] VITALS: BP 140/90; PULSE 67; RESP 22; TEMP 37.1; O2SAT 90; BMI 25.8
[2021-06-02] MEDS: HYDROmorphone 1 mg/mL INJ 1 mL IVP (07:34)
[2021-06-02 07:41] VITALS: BP 140/90; PULSE 60; RESP 15; O2SAT 96
[2021-06-02 07:45] LABS: Glucose Point of Care 114 mg/dL (70-110)
[2021-06-02] MEDS: iohexol 300 mg/mL 100 mL Btl IV (08:49)
[2021-06-02] MEDS: ketorolac 30 mg/mL INJ 15 MG IVP (09:01)
[2021-06-02] MEDS: acetaminophen 500 mg Tablet 1000 MG PO (09:37)
[2021-06-02 09:38] VITALS: RESP 18; O2SAT 98
[2021-06-02] MEDS: oxyCODONE 5 mg IR Tab/Cap PO (09:38)
[2021-06-02 10:05] VITALS: BP 99/55; PULSE 66; RESP 16; O2SAT 98
== END 2021-06-02 10:04 | disposition home or self-care (01) ==
PROVIDERS: Emergency Provider Emergency Medicine; PCP Specialist
DX: S80.812A Abrasion, left lower leg, initial encounter (principal); S80.811A Abrasion, right lower leg, initial encounter; S81.812A Laceration without foreign body, left lower leg, initial encounter; S81.811A Laceration without foreign body, right lower leg, initial encounter; R52 Pain, unspecified; Z85.46 Personal history of malignant neoplasm of prostate; W10.8XXA Fall (on) (from) other stairs and steps, initial encounter
CPT/HCPCS: 36416; 70450; 71260; 72125; 73560; 73590; 74177; 82962; 96374; 96375; 99284; J1170; J1885; Q9967

== ENCOUNTER 2021-06-05 08:28 | Outpatient (CLI) | payer MEDICARE, SELFPAY ==
--- NOTE | 2021-06-05 09:42 | N.ONRAD NP_ITS ---
Radiation Oncology Consultation Patient Name: Petar Verdin Date of : 1975 Date of Service: 06/05/2021 Attending Physician: Constantine Franklin M.D. Petar Verdin was seen in consultation this morning at the request of Kale Tony M.D. for consideration of prostate radiotherapy for the management of a recently diagnosed prostate cancer. He initially was identified to have an elevated PSA level (4.8 ng/mL) in February. A transrectal ultrasound guided biopsy of the prostate gland was performed on May 102020. Imaging demonstrated a prostatic volume of 13 cc without hypoechoic lesions identified. Pathology (independently reviewed in [facility]) diagnosed a prostatic adenocarcinoma with a Rousseau score of 3+4 (Grade Group 2) involving 2% of the specimen from the right lateral mid-gland and 50 % of the core from the right lateral base. No perineural invasion was described. The patient presents for evaluation regarding radiotherapy treatment options. I discussed the AJCC clinical stage IIB (T1CN0) favorable intermediate risk prostate cancer specific to the patient's diagnosis and the National Comprehensive Cancer Network Guidelines recommendation for active surveillance, external beam radiotherapy, brachytherapy, or surgery. Germline testing was also recommended on account of the patient???s family history (first degree relative with a prostate cancer diagnosed at an age less than or equal to 60 years). He is waiting for a surgical consultation prior to making a final decision regarding management. The patient???s treatment plan was discussed with Kale Tony M.D. Signed by: Dr. Constantine Franklin 06/05/2021 9:41:11 AM
== END 2021-06-05 08:29 | disposition home or self-care (01) ==
LOC: ONCMED 08:31
PROVIDERS: PCP Family Medicine; Visit Provider Radiology Radiation Oncology
DX: C61 Malignant neoplasm of prostate (principal); R97.20 Elevated prostate specific antigen [PSA]; Z79.899 Other long term (current) drug therapy
CPT/HCPCS: 99205

== ENCOUNTER → 2021-06-07 07:19 | Outpatient (BNVA) | payer MEDICARE, SELFPAY | PROVIDERS: PCP Family Medicine; Visit Provider Nurse Practitioner Psychiatric/Mental Health | DX: F33.2 Major depressive disorder, recurrent severe without psychotic features (principal); F41.1 Generalized anxiety disorder; F15.21 Other stimulant dependence, in remission; F17.210 Nicotine dependence, cigarettes, uncomplicated | CPT/HCPCS: 99214 ==

== ENCOUNTER → 2021-06-17 00:01 | Outpatient (BNVA) | payer MEDICARE, SELFPAY | PROVIDERS: PCP Family Medicine; Visit Provider Family Medicine | DX: N48.9 Disorder of penis, unspecified (principal) | CPT/HCPCS: 87070; 87205 ==

== ENCOUNTER → 2021-06-20 11:56 | Outpatient (BNVA) | payer MEDICARE, SELFPAY | PROVIDERS: PCP Family Medicine; Visit Provider Family Medicine | DX: E78.5 Hyperlipidemia, unspecified (principal); N48.9 Disorder of penis, unspecified | CPT/HCPCS: 80053; 80061; 87530 ==

== ENCOUNTER → 2021-07-12 07:54 | Outpatient (BNVA) | payer MEDICARE, SELFPAY | PROVIDERS: PCP Family Medicine; Visit Provider Nurse Practitioner Psychiatric/Mental Health | DX: F33.2 Major depressive disorder, recurrent severe without psychotic features (principal); F41.1 Generalized anxiety disorder; F15.21 Other stimulant dependence, in remission; F17.210 Nicotine dependence, cigarettes, uncomplicated | CPT/HCPCS: 99214 ==

== ENCOUNTER 2021-08-11 08:39 | Emergency (ER) | payer MEDICARE, SELFPAY ==
[2021-08-11 08:57] VITALS: BP 124/73; PULSE 61; RESP 16; TEMP 36.7; O2SAT 96; BMI 25.8
--- NOTE | 2021-08-11 09:13 | ED_ITS ---
HPI - Ear Problem General: Chief complaint: Ear Stated complaint: PAIN IN EARS Time Seen by Provider: 08/11/21 08:53 Source: patient Mode of arrival: ambulatory Limitations: no limitations History of Present Illness: HPI Narrative: 45-year-old male presents to the ER today for bilateral ear issues. Patient reports this has been going on for about 1 month now. He reports he has been on antibiotics and also antibiotic eardrops. His symptoms improve and then worsen again. Patient reports symptoms are different at this time. His ears itch and he also notes some drainage. Denies any bloody discharge. Patient denies any difficulty hearing or changes in hearing. Denies any recent illnesses. MD Complaint: other Location: bilateral Duration: intermittent Severity: mild Relieving factors: nothing Exacerbating factors: nothing Discharge from ear: yes - clear Associated symptoms: Reports no associated symptoms; Denies fever(s), headache(s) or neck pain Review of Systems General: Reports: 10 or more systems reviewed and unremarkable except in HPI and below Const: Denies: fever(s), chills or body aches ENMT: Denies: throat pain, nasal discharge or nasal congestion Card: Denies: chest pain or palpitations Resp: Denies: dyspnea or productive cough GI: Denies: abdominal pain, nausea, vomiting, diarrhea or constipation Musc: Denies: neck pain or back pain Skin/Breast: Denies: rash Neuro: Denies: headache(s) PFSH ED PFSH: Medical History Amphetamine dependence, in remission Last use January 2020 Elevated PSA Generalized anxiety disorder Major depressive disorder, recurrent severe without psychotic features Nicotine dependence, cigarettes, uncomplicated Prostate cancer Psychiatric care Surgical History History of appendectomy Status post placement of VNS (vagus nerve stimulation) device 2007 [place], [place] VNS placement Family History Grandfather CAD (coronary artery disease) Hypertension Grandmother Cancer Stroke Mother , AT AGE 55 Shotgun accident Social History Alcohol intake: never Marital status: Current occupational status: disabled History of recent travel: No Physical Exam Const: COMMON NORMALS: no acute distress, average body habitus and patient oriented x3 GENERAL APPEARANCE: cooperative and comfortable HENMT: COMMON NORMALS: normocephalic, hearing grossly normal bilaterally, TM's normal bilaterally, Normal external nose present and oropharynx normal HEAD & SCALP: normocephalic NOSE: Normal external nose present EXTERNAL EAR: Yes external ear abnormal (mild dryness/scaling noted) EXTERNAL AUDITORY CANAL: Abnormal EAC present (scaly and dry, no discharge or drainage noted however) TYMPANIC MEMBRANE: TM's normal bilaterally Neck/C-Spine: COMMON NORMALS: full ROM and no lymphadenopathy Resp: COMMON NORMALS: normal respiratory effort and No retractions EFFORT & INSPECTION: Yes able to speak in complete sentences Cardio: COMMON NORMALS: regular rate and regular rhythm RATE: regular rate RHYTHM: regular rhythm Extremity: COMMON NORMALS: full ROM Neuro: COMMON NORMALS: patient oriented x3 and moves all extremities Psych: COMMON NORMALS: mental status grossly normal, Normal thought process present and cooperative THOUGHT PROCESS: Normal thought process present Skin: COMMON NORMALS: no rashes or lesions noted GENERAL SKIN EXAM: no rashes or lesions noted Course ED course: Patient presents to the ER today for bilateral ear issues. He has had recent infections and been on antibiotics and antibiotic drops. Symptoms do improve before worsening again. He does report the symptoms are slightly different than before. Patient reports prostate cancer and surgery in the near future and wants to get his ears cleared up. Vital Signs: Vital signs: Vital Signs Temperature 98.1 F 08/11/21 08:57 Pulse Rate 61 08/11/21 08:57 Respiratory Rate 16 08/11/21 08:57 Blood Pressure 124/73 08/11/21 08:57 Pulse Oximetry 96 08/11/21 08:57 MDM - Ear MDM Narrative: Medical decision making narrative: 45-year-old male presents to the ER today for bilateral ear issues. He has had recent infections and been treated with antibiotic eardrops and also oral antibiotics. Patient reports that it does improve with the antibiotics but this time the symptoms are slightly different. He reports itching and drainage. On exam no drainage is noted but it is noted the patient has dry, scaling in bilateral ears and external ears. We will try some triamcinolone that should be applied very thin with a Q-tip to the external ear and just inside the ear. Patient is to follow-up with PCP in 1 to 2 weeks if no improvement. Return to the ER with any new or worsening symptoms. Critical Care Time Critical Care Time: Critical Care Time: No Discharge Plan Discharge Patient Disposition: Home Clinical Impression: Ear canal dryness Qualifiers: Laterality: bilateral Qualified Code(s): H61.893 - Other specified disorders of external ear, bilateral Condition: Stable Prescriptions: New triamcinolone acetonide 0.1 % cream 1 applic topical BID Qty: 15 RF: 0 No Action levetiracetam [Keppra XR] 750 mg tablet extended release 24 hr 1,500 mg PO DAILY@0900 Qty: 60 RF: 5 lamotrigine 150 mg tablet 150 mg PO BID Qty: 60 RF: 5 clonazepam [Klonopin] 1 mg tablet 1 mg PO TID PRN (Reason: anxiety) Qty: 90 RF: 2 duloxetine [Cymbalta] 60 mg capsule,delayed release(DR/EC) 60 mg PO .morning Qty: 30 RF: 3 duloxetine [Cymbalta] 30 mg capsule,delayed release(DR/EC) 30 mg PO .morning Qty: 30 RF: 3 ibuprofen 800 mg tablet 800 mg PO TID Qty: 30 RF: 0 ciprofloxacin-dexamethasone [Ciprodex] 0.3-0.1 % drops,suspension 4 drp otic (ear) BID 7 Days Qty: 7.5 RF: 0 clindamycin HCl 300 mg capsule 300 mg PO TID Qty: 30 RF: 0 melatonin 10 mg capsule 10 mg PO BEDTIME@2100 PRN (Reason: sleep) RF: 0 Discharge Orders: Discharge ED (Routine); Ordered 08/11/21 Ordered By: Amelia Lindquist Referrals: Brii Ramon MD [Primary Care Provider] - Discharge Diet: Usual diet Discharge Activity: Resume usual activity Patient Instructions: Opioid Safety Activity Restrictions/Additional Instructions: Use cream as prescribed. Use Q-tip and apply cream to just inside the ear and on the external ear where itching and dryness are present. Follow-up with PCP in 1 week if no improvement. Return to the ER with any new or worsening symptoms. 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
[2021-08-11 09:21] VITALS: BP 124/73; PULSE 61; RESP 16; TEMP 36.7; O2SAT 96
== END 2021-08-11 09:21 | disposition home or self-care (01) ==
PROVIDERS: Emergency Provider Physician Assistant; PCP Family Medicine
DX: H61.893 Other specified disorders of external ear, bilateral (principal); Z85.46 Personal history of malignant neoplasm of prostate
CPT/HCPCS: 99282

== ENCOUNTER → 2021-09-03 07:59 | Outpatient (BNVA) | payer MEDICARE, SELFPAY | PROVIDERS: PCP Family Medicine; Visit Provider Nurse Practitioner Psychiatric/Mental Health | DX: F33.2 Major depressive disorder, recurrent severe without psychotic features (principal); F41.1 Generalized anxiety disorder; F15.21 Other stimulant dependence, in remission; F17.210 Nicotine dependence, cigarettes, uncomplicated | CPT/HCPCS: 99214 ==

== ENCOUNTER → 2021-10-01 07:12 | Outpatient (BNVA) | payer MEDICARE, SELFPAY | PROVIDERS: PCP Family Medicine; Visit Provider Nurse Practitioner Psychiatric/Mental Health | DX: F33.2 Major depressive disorder, recurrent severe without psychotic features (principal); F41.1 Generalized anxiety disorder; F15.21 Other stimulant dependence, in remission; F17.210 Nicotine dependence, cigarettes, uncomplicated | CPT/HCPCS: 99214 ==

== ENCOUNTER → 2021-10-08 11:51 | Outpatient (BNVA) | payer MEDICARE, SELFPAY | PROVIDERS: PCP Family Medicine; Visit Provider Nurse Practitioner Family | DX: Z20.822 Contact with and (suspected) exposure to COVID-19 (principal); J40 Bronchitis, not specified as acute or chronic; R05.9 Cough, unspecified; J02.9 Acute pharyngitis, unspecified | CPT/HCPCS: 87635 ==

== ENCOUNTER 2021-10-20 10:49 | Emergency (ER) | payer MEDICARE, SELFPAY ==
[2021-10-20 11:12] VITALS: BP 161/82; PULSE 70; RESP 18; TEMP 36.4; O2SAT 93; BMI 27.3
--- NOTE | 2021-10-20 11:24 | W.ED.EAR ---
HPI - Ear Problem General: Chief complaint: Ear Stated complaint: bilateral ear pain Time Seen by Provider: 10/20/21 11:18 Source: patient Mode of arrival: ambulatory Limitations: no limitations History of Present Illness: 46-year-old male presents to the ER today for bilateral ear pain x1 week. Patient reports a chronic history of ear problems. Patient's been treated with multiple antibiotics both oral and eardrops, steroids, and other treatments. Patient reports they improve and then worsen again. Patient does not use any type of ear drying drops after getting out of the shower. Patient denies any recent illness. Patient denies headache, fever, chills, chest pain, shortness of breath, nausea, vomiting, diarrhea, constipation. Location: bilateral Duration: constant Discharge from ear: yes - purulent Associated symptoms: Reports no associated symptoms and ear or mastoid pain Review of Systems General: Reports: 10 or more systems reviewed and unremarkable except in HPI and below ENMT: Reports: ear or mastoid pain and ear discharge; Denies: throat pain, nasal discharge or nasal congestion PFSH ED PFSH: Medical History Amphetamine dependence, in remission Last use January 2020 Elevated PSA Generalized anxiety disorder Major depressive disorder, recurrent severe without psychotic features Nicotine dependence, cigarettes, uncomplicated Prostate cancer Psychiatric care Surgical History History of appendectomy Status post placement of VNS (vagus nerve stimulation) device 2007 [place], [place] VNS placement Family History Grandfather CAD (coronary artery disease) Hypertension Grandmother Cancer Stroke Mother , AT AGE 55 Shotgun accident Social History Alcohol intake: never Marital status: Current occupational status: disabled History of recent travel: No Physical Exam Const: COMMON NORMALS: no acute distress, average body habitus, patient oriented x3, no limitations, healthy appearing, alert and well nourished HENMT: COMMON NORMALS: normocephalic, atraumatic, TM's normal bilaterally, Normal external nose present, Normal nasal mucous membranes and turbinates present, moist oral mucous membranes and oropharynx normal; external ears not normal HEAD & SCALP: normocephalic and atraumatic NOSE: Normal external nose present and Normal nasal mucous membranes and turbinates present EXTERNAL EAR: no external ears normal EXTERNAL AUDITORY CANAL: Abnormal EAC present EAC laterality: bilateral EAC tenderness and otic discharge TYMPANIC MEMBRANE: TM's normal bilaterally Neck/C-Spine: COMMON NORMALS: full ROM and no lymphadenopathy Resp: COMMON NORMALS: normal respiratory effort, No retractions and clear to auscultation bilaterally AUSCULTATION: clear to auscultation bilaterally Cardio: COMMON NORMALS: regular rate and regular rhythm RATE: regular rate RHYTHM: regular rhythm Extremity: COMMON NORMALS: normal to inspection Neuro: COMMON NORMALS: patient oriented x3 SENSORIUM/ORIENTATION: Yes alert Psych: COMMON NORMALS: mental status grossly normal Skin: COMMON NORMALS: no rashes or lesions noted GENERAL SKIN EXAM: no rashes or lesions noted Course ED course: Patient presents to the ER for bilateral ear pain and discharge. Patient has been seen here multiple times for this in the past. Patient has an external ear infection at this time and will be treated with appropriate eardrops. Vital Signs: Vital signs: Vital Signs Temperature 97.6 F 10/20/21 11:12 Pulse Rate 70 10/20/21 11:12 Respiratory Rate 18 10/20/21 11:12 Blood Pressure 161/82 10/20/21 11:12 Pulse Oximetry 93 10/20/21 11:12 MDM - Ear Medical Decision Making 46-year-old male presents to the ER today for bilateral ear pain and drainage. Patient has been seen in the ER for this multiple times along with his PCP. Patient has been through multiple rounds of antibiotics and eardrops. Patient does have an abnormal ear canal shape bilaterally which is likely contributing to the recurrent ear infections. We will do Cortisporin drops at this time. Discussed with patient he should purchase [id number] acetic acid drying drops to use after getting out of the shower. Follow-up with PCP in 3 to 5 days if no improvement. Return to the ER with new or worsening symptoms. Critical Care Time Critical Care Time: Critical Care Time: No Discharge Plan Discharge Patient Disposition: Home Clinical Impression: Otitis externa Qualifiers: Laterality: bilateral Condition: Stable Prescriptions: New Cortisporin-TC 3.3-3-10-0.5 mg/mL drops,suspension 4 drp otic (ear) QID 7 Days Qty: 10 0RF Discontinued ciprofloxacin-dexamethasone [Ciprodex] 0.3-0.1 % drops,suspension 4 drp otic (ear) BID 7 Days Qty: 7.5 0RF No Action duloxetine [Cymbalta] 60 mg capsule,delayed release(DR/EC) 60 mg PO .morning Qty: 30 6RF Rx Instructions: Take one capsule every morning duloxetine [Cymbalta] 30 mg capsule,delayed release(DR/EC) 30 mg PO .morning Qty: 30 6RF Rx Instructions: Take one capsule every morning ibuprofen 800 mg tablet 800 mg PO TID Qty: 30 0RF clindamycin HCl 300 mg capsule 300 mg PO TID Qty: 30 0RF promethazine-DM 6.25-15 mg/5 mL syrup 5 ml PO Q6H PRN (Reason: cough) Qty: 200 1RF azithromycin [Zithromax Z-Ramiro] 250 mg tablet See Rx Instructions PO .COMPLEX Qty: 6 0RF Rx Instructions: take 500 mg today (day 1), then 250 mg for 4 days (days 2-5) PO methylprednisolone [Medrol (Ramiro)] 4 mg tablets,dose pack See Rx Instructions PO PER PKG DIR Qty: 21 0RF Rx Instructions: PO PER PKG DIR albuterol sulfate [ProAir HFA] 90 mcg/actuation HFA aerosol inhaler 2 puff inhalation QID PRN (Reason: shortness of breath or wheezing) Qty: 8.5 6RF budesonide-formoterol [Symbicort] 160-4.5 mcg/actuation HFA aerosol inhaler 2 puff inhalation Q12H Qty: 10.2 6RF levetiracetam 750 mg tablet extended release 24 hr See Rx Instructions .ROUTE .COMPLEX Qty: 60 0RF Dose Instruction: TAKE TWO TABLETS BY MOUTH DAILY AT 9AM Rx Instructions: TAKE TWO TABLETS BY MOUTH DAILY AT 9AM lamotrigine 150 mg tablet See Rx Instructions .ROUTE .COMPLEX Qty: 60 0RF Dose Instruction: TAKE ONE TABLET BY MOUTH TWICE DAILY Rx Instructions: TAKE ONE TABLET BY MOUTH TWICE DAILY clonazepam [Klonopin] 1 mg tablet 1 mg PO TID PRN (Reason: anxiety) Qty: 90 1RF Rx Instructions: Take one tablet three times per day as needed for anxiety melatonin 10 mg capsule 10 mg PO BEDTIME@2100 PRN (Reason: sleep) 0RF triamcinolone acetonide 0.1 % cream 1 applic topical BID Qty: 15 0RF Discharge Orders: Discharge ED (Routine); Ordered 10/20/21 Ordered By: Amelia Lindquist Referrals: Brii Ramon MD [Primary Care Provider] - Discharge Diet: Usual diet Discharge Activity: Resume usual activity Patient Instructions: Opioid Safety Activity Restrictions/Additional Instructions: Use eardrops as prescribed. Purchase [id number] acetic acid drops to expedite drying after showers. Follow-up with PCP in 3 to 5 days if no improvement. 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
[2021-10-20 11:28] VITALS: BP 154/87; PULSE 89; RESP 18; O2SAT 97
== END 2021-10-20 11:34 | disposition home or self-care (01) ==
LOC: ER 11:33
PROVIDERS: Emergency Provider Physician Assistant; PCP Family Medicine
DX: H60.93 Unspecified otitis externa, bilateral (principal); Z85.46 Personal history of malignant neoplasm of prostate
CPT/HCPCS: 99282

== ENCOUNTER → 2021-10-22 10:02 | Outpatient (BNVA) | payer MEDICARE, SELFPAY | PROVIDERS: PCP Family Medicine; Visit Provider Specialist | DX: G40.209 Localization-related (focal) (partial) symptomatic epilepsy and epileptic syndromes with complex partial seizures, not intractable, without status epilepticus (principal); G40.409 Other generalized epilepsy and epileptic syndromes, not intractable, without status epilepticus; F15.21 Other stimulant dependence, in remission; Z96.82 Presence of neurostimulator | CPT/HCPCS: 95971; 99213; 99214 ==

== ENCOUNTER → 2021-11-19 08:45 | Outpatient (BNVA) | payer MEDICARE, SELFPAY | PROVIDERS: PCP Family Medicine; Visit Provider Nurse Practitioner Psychiatric/Mental Health | DX: F33.2 Major depressive disorder, recurrent severe without psychotic features (principal); F41.1 Generalized anxiety disorder; F17.210 Nicotine dependence, cigarettes, uncomplicated; F15.21 Other stimulant dependence, in remission; Z79.899 Other long term (current) drug therapy; Z03.89 Encounter for observation for other suspected diseases and conditions ruled out | CPT/HCPCS: 99214 ==

== ENCOUNTER → 2021-12-19 10:16 | Outpatient (BNVA) | payer MEDICARE, SELFPAY | PROVIDERS: PCP Family Medicine; Visit Provider Nurse Practitioner Psychiatric/Mental Health | DX: F33.2 Major depressive disorder, recurrent severe without psychotic features (principal); F41.1 Generalized anxiety disorder; F15.21 Other stimulant dependence, in remission; F17.210 Nicotine dependence, cigarettes, uncomplicated | CPT/HCPCS: 99214 ==

== ENCOUNTER → 2022-01-03 09:44 | Outpatient (BNVA) | payer MEDICARE, SELFPAY | PROVIDERS: PCP Family Medicine; Visit Provider Nurse Practitioner Psychiatric/Mental Health | DX: Z03.89 Encounter for observation for other suspected diseases and conditions ruled out (principal); Z79.899 Other long term (current) drug therapy | CPT/HCPCS: 80306 ==

== ENCOUNTER → 2022-02-13 07:08 | Outpatient (BNVA) | payer MEDICARE, SELFPAY | PROVIDERS: PCP Family Medicine; Visit Provider Nurse Practitioner Psychiatric/Mental Health | DX: F33.2 Major depressive disorder, recurrent severe without psychotic features (principal); F41.1 Generalized anxiety disorder; F17.290 Nicotine dependence, other tobacco product, uncomplicated; F15.21 Other stimulant dependence, in remission | CPT/HCPCS: 99214 ==

== ENCOUNTER 2022-03-26 12:06 | Emergency (ER) | payer MEDICARE, SELFPAY ==
[2022-03-26 12:20] VITALS: BP 167/107; PULSE 65; RESP 16; TEMP 36.4; O2SAT 97
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
[2022-03-26] MEDS: ketorolac 60 mg/2 mL INJ IM (15:42)
[2022-03-26] MEDS: dexamethasone 10 mg/mL INJ 8 MG IM (15:42)
[2022-03-26 15:50] VITALS: BP 158/95; PULSE 72; RESP 16; O2SAT 98
--- NOTE | 2022-03-28 08:38 | DCPLANNER ---
Addendum entered by Renu Casey 04/08/22 10:56: Patient had a follow up appointment scheduled for 04.02.[address] Jackson at ortho - patient did attend appointment. Original Note: export freight manager had message to schedule a follow up appointment for patient with ortho. export freight manager sent patients information to the front office staff or ortho. Patients information will be printed and reviewed. Clinic will call patient with appointment information.
== END 2022-03-26 15:51 | disposition home or self-care (01) ==
PROVIDERS: Emergency Provider Physician Assistant; PCP Family Medicine
DX: S49.91XA Unspecified injury of right shoulder and upper arm, initial encounter (principal); Z85.46 Personal history of malignant neoplasm of prostate; X50.9XXA Other and unspecified overexertion or strenuous movements or postures, initial encounter; Y99.0 Civilian activity done for income or pay
CPT/HCPCS: 73030; 96372; 99284; J1100; J1885

== ENCOUNTER → 2022-04-02 14:20 | Outpatient (BNVA) | payer MEDICARE, SELFPAY | PROVIDERS: PCP Family Medicine; Visit Provider Specialist | DX: Y04.0XXA Assault by unarmed brawl or fight, initial encounter (principal); M25.511 Pain in right shoulder; S49.91XA Unspecified injury of right shoulder and upper arm, initial encounter; M25.611 Stiffness of right shoulder, not elsewhere classified | CPT/HCPCS: 73030; 99204 ==

== ENCOUNTER 2022-04-02 16:24 | Outpatient (CLI) | payer MEDICARE, SELFPAY | END 2022-04-02 16:25 | disposition home or self-care (01) | LOC: SPT 16:24 | PROVIDERS: PCP Family Medicine; Visit Provider Specialist | DX: Z46.89 Encounter for fitting and adjustment of other specified devices (principal); S49.91XD Unspecified injury of right shoulder and upper arm, subsequent encounter; X58.XXXD Exposure to other specified factors, subsequent encounter | CPT/HCPCS: 97760; L3670 ==

== ENCOUNTER → 2022-07-14 15:37 | Outpatient (BNVA) | payer MEDICARE, SELFPAY | PROVIDERS: PCP Family Medicine; Visit Provider Nurse Practitioner Psychiatric/Mental Health | DX: Z79.899 Other long term (current) drug therapy (principal); F33.2 Major depressive disorder, recurrent severe without psychotic features; F41.1 Generalized anxiety disorder; F17.290 Nicotine dependence, other tobacco product, uncomplicated; F15.21 Other stimulant dependence, in remission | CPT/HCPCS: 80053; 80307 ==

== ENCOUNTER 2022-07-28 12:55 | Emergency (ER) | payer MEDICARE, SELFPAY ==
--- NOTE | 2022-07-28 12:56 | W.ED.SEIZURE ---
HPI - Seizure General: Chief Complaint: Neuro Symptoms/Deficit Stated Complaint: SEIZURES X 2 Time Seen by Provider: 07/28/22 12:56 Limitations: altered mental status History of Present Illness: HPI Narrative: Mr. 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 Patient is postictal which limits history and reliability. Per EMS report patient had 2 seizures today. He thinks his last seizure was a few days ago. Reports compliance with his medication regimen. Per chart review previously saw Dr. Lyman (neurology) in October of this year and was doing well with combination of Lamictal, Keppra, and VNS. Seizure History: Yes Review of Systems General: Reports: ROS unobtainable due to mental status PFS ED PFSH: Medical History Amphetamine dependence, in remission Last use reported as January 2020 Elevated PSA Generalized anxiety disorder Major depressive disorder, recurrent severe without psychotic features Nicotine dependence, other tobacco product, uncomplicated vaping 5 mg nicotine Prostate cancer Psychiatric care Surgical History History of appendectomy Status post placement of VNS (vagus nerve stimulation) device 2007 [place], [place] VNS placement Family History Grandfather CAD (coronary artery disease) Hypertension Grandmother Cancer Stroke Mother , AT AGE 55 Shotgun accident Social History Smoking and tobacco status: never smoked Alcohol intake: never Marital status: Current occupational status: disabled History of recent travel: No Physical Exam Const: COMMON NORMALS: alert GENERAL APPEARANCE: cooperative and well developed HENMT: COMMON NORMALS: normocephalic and atraumatic HEAD & SCALP: normocephalic and atraumatic Eye: COMMON NORMALS: conjunctivae normal CONJUNCTIVA: Yes conjunctivae normal SCLERA: sclerae normal Neck/C-Spine: COMMON NORMALS: supple GENERAL: Yes trachea midline Resp: COMMON NORMALS: normal respiratory effort and clear to auscultation bilaterally EFFORT & INSPECTION: Yes able to speak in complete sentences AUSCULTATION: clear to auscultation bilaterally Cardio: COMMON NORMALS: regular rate and regular rhythm RATE: regular rate RHYTHM: regular rhythm GI: COMMON NORMALS: Soft to palpation PALPATION: Yes Soft to palpation and No Tenderness to palpation present (GI) Extremity: GENERAL: Yes normal exam except as noted and No edema Neuro: COMMON NORMALS: moves all extremities SENSORIUM/ORIENTATION: Yes alert and No Orientation impaired OTHER: Appears postictal Course Vital Signs: Vital signs: Vital Signs Temperature 97.9 F 07/28/22 13:08 Pulse Rate 85 07/28/22 15:54 Respiratory Rate 18 07/28/22 13:08 Blood Pressure 101/76 07/28/22 15:54 Pulse Oximetry 94 07/28/22 15:54 Oxygen Delivery Me thod 07/28/22 14:17 MDM - Seizure MDM Narrative Medical decision making narrative: 46-year-old male with known history of seizure disorder presenting with seizures that are typically well controlled. Patient appears postictal as noted above. Labs notable for essentially unremarkable hematologic and metabolic panel. No evidence of urinary tract infection. Amphetamines positive on urine drug screen though patient denies use. Given clinical history, reassessment with improvement, and exam no occasion for imaging at this time. Per chart review the patient does have a history of amphetamine abuse with uncontrolled seizures during this time. During ED course patient treated with p.o. Ativan. Upon reassessment patient appears improved. Most likely etiology of symptoms is substance abuse and epilepsy. The results of ED evaluation were discussed with the patient including prescriptions and/or symptomatic cares (if applicable) including appropriate and responsible use, followup plan, and return precautions. The patient verbalized understanding and felt safe for discharge. Medical Records Attestation: I reviewed the patient's medical records. Lab Data Attestation: I reviewed the patient's lab results. 07/28/22 13:10 07/28/22 13:10 Labs: Laboratory Results WBC 5.6 10^3/uL (4.0-10.0) 07/28/22 13:10 RBC 5.20 10^6/uL (4.1-5.3) 07/28/22 13:10 Hgb 15.2 g/dL (11.7-16.6) 07/28/22 13:10 Hct 43.6 % (42.0-52.0) 07/28/22 13:10 MCV 83.8 fl (80-94) 07/28/22 13:10 MCH 29.2 pg (28.0-34.0) 07/28/22 13:10 MCHC 34.9 g/dL (30.0-36.0) 07/28/22 13:10 RDW 12.6 % (12.1-15.1) 07/28/22 13:10 Plt Count 386 10^3/cmm (130-400) 07/28/22 13:10 MPV 10.6 fL (7.4-10.4) H 07/28/22 13:10 Neut % (Auto) 73.1 % 07/28/22 13:10 Lymph % (Auto) 21.1 % 07/28/22 13:10 [place] % (Auto) 4.8 % 07/28/22 13:10 Eos % (Auto) 0.4 % 07/28/22 13:10 Baso % (Auto) 0.4 % 07/28/22 13:10 Neut # (Auto) 4.12 10^3/uL (1.8-7.7) 07/28/22 13:10 Lymph # (Auto) 1.2 10^3/uL (0.8-4.8) 07/28/22 13:10 [place] # (Auto) 0.3 10^3/uL (0.2-0.9) 07/28/22 13:10 Eos # (Auto) 0.0 10^3/uL (0.0-0.8) 07/28/22 13:10 Baso # (Auto) 0.0 10^3/uL (0.0-0.1) 07/28/22 13:10 Nucleated RBC % (auto) 0 % 07/28/22 13:10 Nucleated RBCs # 0.0 /100WBC 07/28/22 13:10 Sodium 137 mmol/L (136-145) 07/28/22 13:59 Potassium 4.0 mmol/L (3.5-5.1) 07/28/22 13:59 Chloride 98 mmol/L (98-107) 07/28/22 13:59 Carbon Dioxide 24 mmol/L (22-29) 07/28/22 13:59 Anion Gap 19.0 (5-19) 07/28/22 13:59 BUN 9 mg/dL (6-20) 07/28/22 13:59 Creatinine 0.9 mg/dL (0.7-1.2) 07/28/22 13:59 GFR Calculation 90.1 mL/min (90-130) 07/28/22 13:59 Glucose 107 mg/dL (65-115) 07/28/22 13:59 Calculated Osmolality 283 mOsm/kg (285-295) L 07/28/22 13:59 Calcium 9.6 mg/dL (8.5-10.5) 07/28/22 13:59 Total Bilirubin 0.9 mg/dL (0.15-1.2) 07/28/22 13:59 AST 30 U/L (0-40) 07/28/22 13:59 ALT 16 U/L (0-41) 07/28/22 13:59 Alkaline Phosphatase 121 U/L (40-130) 07/28/22 13:59 Total Protein 7.8 g/dL (6.6-8.7) 07/28/22 13:59 Albumin 4.3 g/dL (3.5-5.2) 07/28/22 13:59 Globulin 3.5 g/dL (1.3-4.6) 07/28/22 13:59 Urine Color Yellow (Yellow) 07/28/22 14:14 Urine Appearance Clear (CLEAR) 07/28/22 14:14 Urine pH 7 (5-7) 07/28/22 14:14 Ur Specific [place] 1.010 (1.005-1.030) 07/28/22 14:14 Urine Protein Neg (Negative) 07/28/22 14:14 Urine Glucose (UA) Norm (Normal) 07/28/22 14:14 Urine Ketones 2+ (Negative) H 07/28/22 14:14 Urine Blood Neg (Negative) 07/28/22 14:14 Urine Nitrate Negative (Negative) 07/28/22 14:14 Urine Bilirubin Neg (Negative) 07/28/22 14:14 Urine Urobilinogen Norm mg/dL (Negative) 07/28/22 14:14 Ur Leukocyte Esterase Negative (Negative) 07/28/22 14:14 Urine Opiates Screen Negative ng/mL (Negative) 07/28/22 14:14 Ur Barbiturates Screen Negative ng/mL (Negative) 07/28/22 14:14 Ur Phencyclidine Scrn Negative ng/mL (Negative) 07/28/22 14:14 Ur Amphetamines Screen Positive ng/mL (Negative) H 07/28/22 14:14 U Benzodiazepines Scrn Negative ng/mL (Negative) 07/28/22 14:14 Urine Cocaine Screen Negative ng/mL (Negative) 07/28/22 14:14 U Marijuana (THC) Screen Negative ng/mL (Negative) 07/28/22 14:14 Discharge Plan Discharge Patient Disposition: Home Clinical Impression: Epilepsy Condition: Stable Prescriptions: No Action (DME) Shoulder immobilizer See Rx Instructions .Route .MEDSUPPLY Qty: 1 0RF Rx Instructions: As directed propranolol 10 mg tablet 10 mg PO BID lamotrigine 150 mg tablet 150 mg PO BID Cymbalta 60 mg capsule,delayed release(DR/EC) 120 mg PO QAM levetiracetam 750 mg tablet extended release 24 hr 1,500 mg PO DAILY Discharge Orders: Discharge ED (Routine); Ordered 07/28/22 Ordered By: Tyler Malcolm Referrals: Brii Ramon MD [Primary Care Provider] - Discharge Diet: Usual diet Discharge Activity: Limit activity as instructed Patient Instructions: Epilepsy (ED) Activity Restrictions/Additional Instructions: Thank you for visiting the emergency department. You were seen and evaluated for seizures. The most likely cause of your seizures is related to underlying seizure disorder. I will message case management for follow-up with neurology. Please avoid using any illegal substances. Please follow all typical seizure precautions including no driving, no operating machinery, do not bathe in bathtub or swim in a swimming pool, do not cook over open flame, do not otherwise perform tasks that would be dangerous to you or others if you were to have a seizure while performing them. Return to the emergency department for anything that you are concerned about a feel needs emergency department evaluation. 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
[2022-07-28 13:08] VITALS: BP 118/74; PULSE 75; RESP 18; TEMP 36.6; O2SAT 100; BMI 24.3
[2022-07-28 13:17] VITALS: BP 118/74; PULSE 83; O2SAT 99
[2022-07-28] MEDS: LORazepam 1 mg Tablet PO ×2 (13:31→14:48)
[2022-07-28 13:36] LABS: Basophils % 0.4 %; Eosinophils % 0.4 %; Hematocrit 43.6 % (42.0-52.0); Hemoglobin 15.2 g/dL (11.7-16.6); Lymphocytes # 1.2 10^3/uL (0.8-4.8); Lymphocytes % 21.1 %; Mean Corpuscular HGB Conc 34.9 g/dL (30.0-36.0); Mean Corpuscular Hemoglobin 29.2 pg (28.0-34.0); Mean Corpuscular Volume 83.8 fl (80-94); Mean Platelet Volume 10.6 fL (7.4-10.4); Monocytes # 0.3 10^3/uL (0.2-0.9); Monocytes % 4.8 %; Neutrophils # 4.12 10^3/uL (1.8-7.7); Neutrophils % 73.1 %; Nucleated Red Blood Cells % 0 %; Platelet Count 386 10^3/cmm (130-400); Red Cell Distribution Width 12.6 % (12.1-15.1); White Blood Count 5.6 10^3/uL (4.0-10.0)
[2022-07-28 14:17] VITALS: BP 132/71; PULSE 94; O2SAT 98
[2022-07-28 14:27] LABS: Albumin Level 4.3 g/dL (3.5-5.2); Alkaline Phosphatase 121 U/L (40-130); Blood Urea Nitrogen 9 mg/dL (6-20); Calcium 9.6 mg/dL (8.5-10.5); Carbon Dioxide 24 mmol/L (22-29); Chloride 98 mmol/L (98-107); Globulin 3.5 g/dL (1.3-4.6); Glomerular Filtration Rate 90.1 mL/min (90-130); Glucose 107 mg/dL (65-115); Osmolality Calculated 283 mOsm/kg (285-295); Sodium 137 mmol/L (136-145); Total Bilirubin 0.9 mg/dL (0.15-1.2); Total Protein 7.8 g/dL (6.6-8.7)
[2022-07-28 14:28] LABS: Alanine Aminotransferase 16 U/L (0-41); Aspartate Amino Transferase 30 U/L (0-40)
[2022-07-28 14:39] LABS: Add Urine Microscopic? NO; Charge for UA Resulting for Rev
[2022-07-28 15:13] LABS: Amphetamines Screen Urine Positive (Negative); Barbiturates Screen Urine Negative (Negative); Benzodiazepines Screen Urine Negative (Negative); Bilirubin Urine Neg (Negative); Blood Urine Neg (Negative); Cocaine Screen Urine Negative (Negative); Glucose Urine UA Norm (Normal); Ketones Urine 2+ (Negative); Leukocyte Esterase Urine Negative (Negative); Nitrate Urine Negative (Negative); Opiate Screen Urine Negative (Negative); PCP Screen Urine Negative (Negative); Protein Urine Neg (Negative); THC Screen Urine Negative (Negative); Urine Appearance Clear (CLEAR); Urine Color Yellow (Yellow); Urobilinogen Urine Norm (Negative); pH Urine 7 (5-7)
[2022-07-28 15:54] VITALS: BP 101/76; PULSE 85; O2SAT 94
--- NOTE | 2022-07-29 07:44 | PC.SOCIAL ---
Addendum entered by Renu Casey 10/29/22 08:07: Appointment was cancelled Addendum entered by Renu Casey 09/03/22 13:20: Patient has a follow up appointment scheduled for Saturday October 08, 2022 at 12:[address] Lyman at neurology. Clinic will call patient with appointment information. Original Note: Neurology Follow-Up Referral sent to neurology for follow up. Clinic to contact patient with appt date/time.
== END 2022-07-28 15:38 | disposition home or self-care (01) ==
PROVIDERS: Emergency Provider Emergency Medicine; PCP Family Medicine
DX: G40.909 Epilepsy, unspecified, not intractable, without status epilepticus (principal)
CPT/HCPCS: 80053; 80306; 81003; 85025; 99283

== ENCOUNTER 2022-08-17 13:47 | Emergency (ER) | payer MEDICARE, SELFPAY ==
[2022-08-17 14:03] VITALS: BP 131/83; PULSE 68; RESP 18; TEMP 36.3; O2SAT 95
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
--- NOTE | 2022-08-17 14:55 | CTR_ITS ---
PROCEDURE INFORMATION: Exam: CT Orbits Without Contrast Exam date and time: 08/17/2022 2:58 PM Age: 46 years old Clinical indication: Eye pain; Left; Additional info: L eye trauma TECHNIQUE: Imaging protocol: Computed tomography of the orbits without contrast. Radiation optimization: All CT scans at this facility use at least one of these dose optimization techniques: automated exposure control; mA and/or kV adjustment per patient size (includes targeted exams where dose is matched to clinical indication); or iterative reconstruction. COMPARISON: CT head wo con* [id number] 06/02/2021 7:54 AM RADIATION DOSE METRICS: Total DLP (mGy-cm): 388.46 FINDINGS: Paranasal sinuses: Normal. No air-fluid levels. Orbital cavities: Orbits are normal. Globes are unremarkable. Bones/joints: Enlargement, deformity and anterior dislocation of the left mandibular condyle. Soft tissues: No significant facial soft tissue swelling. CT/CT orbit BI wo con* [id number] IMPRESSION: 1. No acute facial/orbital bony injury identified. 2. 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
[2022-08-17] MEDS: tetracaine 0.5% Op Soln 4 mL Btl 1 DROP EYE-LEFT (15:10)
[2022-08-17] MEDS: fluorescein 1 mg Strip EYE-LEFT (15:10)
[2022-08-17] MEDS: ketorolac 30 mg/mL INJ IM (15:36)
== END 2022-08-17 15:48 | disposition left against medical advice (07) ==
PROVIDERS: Emergency Provider Emergency Medicine; PCP Family Medicine
DX: H18.822 Corneal disorder due to contact lens, left eye (principal); H20.00 Unspecified acute and subacute iridocyclitis
CPT/HCPCS: 70480; 96372; 99284; J1885

== ENCOUNTER → 2022-08-21 13:56 | Outpatient (BNVA) | payer MEDICARE, SELFPAY | PROVIDERS: PCP Family Medicine; Visit Provider Nurse Practitioner Family | DX: R05.8 Other specified cough (principal); J02.9 Acute pharyngitis, unspecified; J40 Bronchitis, not specified as acute or chronic | CPT/HCPCS: 87071; 87400; 87426; 87880 ==

== ENCOUNTER → 2022-10-29 16:51 | Outpatient (BNVA) | payer MEDICARE, SELFPAY | PROVIDERS: PCP Family Medicine; Visit Provider Nurse Practitioner Family | DX: L02.411 Cutaneous abscess of right axilla (principal) | CPT/HCPCS: 87070; 87075; 87205 ==

== ENCOUNTER 2023-05-21 11:56 | Outpatient (CLI) | payer MEDICARE, SELFPAY ==
--- NOTE | 2023-05-21 12:12 | XRR_ITS ---
PROCEDURE INFORMATION: Exam: XR Right Knee Exam date and time: 05/21/2023 12:23 PM Age: 47 years old Clinical indication: Pain and injury or trauma; Fall; Blunt trauma; Knee; Right; Injury date: 05/20/23; Additional info: Right knee pain TECHNIQUE: Imaging protocol: Radiologic exam of the right knee. Views: 3 views. COMPARISON: CR XR knee RT 1-2V [id number] 06/02/2021 7:45 AM FINDINGS: Bones/joints: There are minimal degenerative changes involving the medial knee compartment with mild joint space narrowing. Remaining joint surfaces are preserved. There is no fracture or malalignment. Soft tissues: Normal. There is no joint effusion. XR/XR knee RT 3V* [id number] IMPRESSION: Minimal degenerative changes medial knee compartment. No acute bony abnormalities.
== END 2023-05-21 11:57 | disposition home or self-care (01) ==
PROVIDERS: PCP Family Medicine; Visit Provider Family Medicine
DX: M25.561 Pain in right knee (principal)
CPT/HCPCS: 73562

== ENCOUNTER → 2023-08-03 08:34 | Outpatient (BNVA) | payer MEDICARE, MEDICAID, SELFPAY | PROVIDERS: Visit Provider Specialist | DX: G40.209 Localization-related (focal) (partial) symptomatic epilepsy and epileptic syndromes with complex partial seizures, not intractable, without status epilepticus (principal); Z96.89 Presence of other specified functional implants | CPT/HCPCS: 95972; 99213 ==

== ENCOUNTER → 2024-01-27 10:11 | Outpatient (BNVA) | payer MEDICARE, SELFPAY | PROVIDERS: Visit Provider Nurse Practitioner Family | DX: M79.642 Pain in left hand (principal) | CPT/HCPCS: 73130 ==

== ENCOUNTER → 2024-04-13 15:06 | Outpatient (BNVA) | payer MEDICARE, SELFPAY | PROVIDERS: PCP Family Medicine; Visit Provider Specialist | DX: M18.12 Unilateral primary osteoarthritis of first carpometacarpal joint, left hand (principal) | CPT/HCPCS: 73130; 99204 ==

== ENCOUNTER → 2024-05-27 08:47 | Outpatient (BNVA) | payer MEDICARE, SELFPAY | PROVIDERS: PCP Family Medicine; Visit Provider Student in an Organized Health Care Education/Training Program | DX: M18.12 Unilateral primary osteoarthritis of first carpometacarpal joint, left hand; G56.02 Carpal tunnel syndrome, left upper limb | CPT/HCPCS: 73130; 99214 ==

== ENCOUNTER 2024-07-04 07:33 | Day surgery (SDC) | payer MEDICARE, SELFPAY ==
[2024-07-04] VITALS (10 sets, daily range): BP systolic 98–163; BP diastolic 70–107; PULSE 72–90; RESP 15–20; TEMP 36.2–36.7; O2SAT 93–99; BMI 24.3
--- NOTE | 2024-07-04 | XR_ITS ---
WS: [id number] Exam: XR finger LT min 2V [id number] Date/Time of Exam: 07/04/2024 12:00 AM Reason For Exam: SHEEBA PICS No images were obtained.
[2024-07-04] MEDS: acetaminophen 1,000 MG/100 ML PIGGYBACK 400 MG IV (08:05)
[2024-07-04] MEDS: ketorolac 30 mg/mL INJ IVP (08:08)
[2024-07-04] MEDS: sodium chloride 0.9% 1,000 ML 30 ML IV (08:09)
--- NOTE | 2024-07-04 08:15 | ANES.PREANE2 ---
Pre-Anesthetic Assessment Height/Weight: Height 1.73 m Weight 72.575 kg Temp Pulse Resp BP Pulse Ox O2 Del Method 97.2 F L 90 18 131/107 96 Room Air 07/04/24 07:56 07/04/24 07:56 07/04/24 07:56 07/04/24 07:56 07/04/24 07:56 07/04/24 07:59 Operation Date: 07/04/24 09:10 Proposed Procedures p Carpal Tunnel Release(Left) - Hernan Doss DO s Left thumb Basal Joint Arthroplasty(Left) - Hernan Doss DO Familial anesthetic complications: None Was Beta King taken within 24 hours: N/A Was Clonidine taken within 24 hours: N/A Last intake: Intake Last Liquid Date 07/03/24 Last Liquid Time 23:00 Last Solid Date 07/03/24 Last Solid Time 18:00 Social No alcohol and No tobacco Exam alert, oriented x 3, clear to auscultation bilaterally and regular rate & rhythm Airway Mallampati: Class II Dentition: false Neuropsych Seizure (none in > 4 years) Anesthetic Plan ASA status: 2 Anesthesia: General and Regional (specify below) Risk of > 500 ml blood loss (7ml/kg in children): No Medications/Allergies Home Medications Medication Instructions Recorded Confirmed Last Taken Type diclofenac sodium 1 % topical gel 4 g topical QID #100 grams 02/11/24 06/30/24 Unknown Rx (Voltaren Arthritis Pain) duloxetine 60 mg capsule,delayed 60 mg PO BID #120 caps 02/11/24 06/30/24 06/30/24 Rx release (Cymbalta) tramadol 50 mg tablet 50 mg PO Q8H PRN pain 7 days #21 06/02/24 06/30/24 06/30/24 Rx tabs clonazepam 0.5 mg tablet 0.5 mg PO BID #60 tabs 06/13/24 06/30/24 07/03/24 Rx lamotrigine 150 mg tablet 150 mg PO BID 06/30/24 06/30/24 06/30/24 History levetiracetam 750 mg 750 mg PO BID 06/30/24 06/30/24 06/30/24 History tablet,extended release 24 hr hydrocodone 7.5 mg-acetaminophen 1 tab PO Q6H PRN pain #20 tabs 07/04/24 Unknown Rx 325 mg tablet ondansetron 4 mg disintegrating 4 mg PO Q8H PRN nausea and 07/04/24 Unknown Rx tablet vomiting 3 days #9 tabs Allergies Allergy/AdvReac Type Severity Reaction Status Date / Time tramadol Allergy Severe ALGY-Rash Verified 07/04/24 07:46 Current Medications Generic Name Dose Route Start Last Admin Trade Name Freq PRN Reason Stop Dose Admin Sodium Chloride 1,000 mls @ 30 mls/hr 07/04/24 07:45 07/04/24 08:09 Sodium Chloride 0.9% IV 07/05/24 07:44 30 mls/hr .Q24H BOLA Administration PFSH Anesthesia Medical History Enrolled in chronic care management Prostate cancer Nicotine dependence, other tobacco product, uncomplicated vaping 5 mg nicotine Elevated PSA Major depressive disorder, 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, in remission Generalized anxiety disorder Surgical History Hx of prostatectomy History of appendectomy Status post placement of VNS (vagus nerve stimulation) device 2007 [place], [place] VNS placement Family History Grandfather CAD (coronary artery disease) Hypertension Grandmother Cancer Stroke Mother , AT AGE 55 Shotgun accident Social History Smoking and tobacco/nicotine status: unknown if used tobacco/nicotine Quit status (tobacco/nicotine): has quit using Year quit tobacco: 2020 Alcohol intake: never Substance/Drug Use: never Marital status: service: No Current occupational status: disabled Current occupational exposures/hazards: No Data Anesthesia Cardiac Studies: No Data to Display
--- NOTE | 2024-07-04 08:46 | ANES.PROC ---
Anesthesia Procedures Procedure/Date: 07/04/24 Nerve Block ^: Nerve Block 1: Main Anesthesia: general anesthesia Time Out Performed: Yes Consent: requested by attending/covering physician, from patient, from other, risks and benefits reviewed and patient agrees to proceed Nerve block location: axillary (L) Anesthesia monitors applied: pulse oximetry, EKG, BP cuff and oxygen Nerve block position: supine Anesthetic Used: ropivicaine 0.5% (30 ml) and with decadron (4 mg) Ultrasound used to: recognize landmarks and visualize and ID brachial plexus Nerve Stimulator Used?: No Interscalene/Femoral BLK: 2 stimuplex 22 g needle used for position and inplane approach, visualize local anesthetic spread and no vascular puncture identified Injection: neg aspiration of heme Patient Tolerated Procedure: well Complications: none
--- NOTE | 2024-07-04 08:46 | PC.NURSE ---
0840: left axilary arm block performed by OBDULIA using .5% ropivicaine 30 ml and 4mg decadron
--- NOTE | 2024-07-04 08:51 | P.HP_ITS ---
Same Day Surgery H&P Indication for Procedure/HPI DATE OF PROCEDURE: July 04, 2024 CHIEF COMPLAINT/INDICATIONFOR SURGICAL PROCEDURE: Left thumb basal joint arthritis, left carpal tunnel syndrome PREOP DIAGNOSIS: Left thumb basal joint arthritis, left carpal tunnel syndrome PLANNED PROCEDURE: Operation Date: 07/04/24 09:10 Proposed Procedures p Carpal Tunnel Release(Left) - Hernan Doss DO s Left thumb Basal Joint Arthroplasty(Left) - Hernan Doss DO Medications/Allergies* Home Medications Medication Instructions Recorded Confirmed Type lamotrigine 150 mg tablet 150 mg PO BID 06/30/24 06/30/24 History levetiracetam 750 mg 750 mg PO BID 06/30/24 06/30/24 History tablet,extended release 24 hr Allergies/Adverse Reactions Allergy/AdvReac Type Severity Reaction Status Date / Time tramadol Allergy Severe ALGY-Rash Verified 07/04/24 07:46 Current Medications: Generic Name Dose Route Start Last Admin Trade Name Freq PRN Reason Stop Dose Admin Sodium Chloride 1,000 mls @ 30 mls/hr 07/04/24 07:45 07/04/24 08:09 Sodium Chloride 0.9% IV 07/05/24 07:44 30 mls/hr .Q24H BOLA Administration Pertinent History/Comorbid Conditions* Medical History (Updated 06/13/24 @ 22:11 by Hernan Doss DO) Enrolled in chronic care management Prostate cancer Nicotine dependence, other tobacco product, uncomplicated vaping 5 mg nicotine Elevated PSA Major depressive disorder, 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, in remission Generalized anxiety disorder Surgical History (Updated 02/11/24 @ 14:43 by Kishore Silver MD) Hx of prostatectomy History of appendectomy Status post placement of VNS (vagus nerve stimulation) device 2007 [place], [place] VNS placement Family History (Updated 04/22/21 @ 11:04 by Jo Ann Aguilar LPN) Mother, AT AGE 55 Shotgun accident Mother CAD (coronary artery disease) Grandfather Cancer Grandmother Hypertension Grandfather Stroke Grandmother Social History Smoking and tobacco/nicotine status: unknown if used tobacco/nicotine Quit status (tobacco/nicotine): has quit using Year quit tobacco: 2020 Alcohol intake: never Substance/Drug Use: never Marital status: service: No Current occupational status: disabled Current occupational exposures/hazards: No Pertinent Exam Findings alert, oriented x 3, operative site marked and procedure specific exam findings Patient received preoperative block today. Please refer to detailed orthopedic examination on 05/27/2024: Left Upper Extremity Exam: -Tenderness over 1st dorsal compartment -Tender over CMC joint -Positive CMC joint grind -Minimal thumb opposition to not appose to the middle finger -Positive Tinel's over the carpal tunnel -Positive median nerve compression test -Thenar weakness noted -Negative Tinel's at the elbow -Good intrinsic strength, no weakness Recommendations Surgery/Procedure today Other Plans: Plan to proceed to the OR today for left carpal tunnel release, left thumb basal joint arthroplasty. Patient understands the ins and outs procedure the risk benefits complication alternatives surgery and through shared decision make elects proceed with surgical intervention. All questions answered at this time. Coding Level of Care Code Acute Code for Oneida Granados
[2024-07-04] MEDS: ceFAZolin 2,000 MG in sodium chloride 0.9% (plus) 50 ML 100 MG IV (09:15)
--- NOTE | 2024-07-04 10:43 | P.BOP_ITS ---
Date of Procedure: 07/04/2024 Surgeon: Hernan Doss DO Hydrometer Calibrator(s): Adrian Doss PA-C Procedure(s) performed: Left carpal tunnel release Left thumb basal joint arthroplasty Left thumb APL slip tendon transfer with interposition Findings of the procedure(s): Patient was found to have left carpal tunnel syndrome as well as severe degenerative left thumb basal joint arthritis STT joint had no arthritic changes noted. Patient underwent left carpal tunnel release and left thumb basal joint arthroplasty without issues or complications in order to add for more tendon interposition as well as thumb abduction to prevent from any type of impinging I subsequently did perform an APL slip tendon transfer as well with interposition. Patient Toller procedure well without issues or complications placed in a thumb spica splint taken to PACU stable condition. Estimated blood loss: 15 mL Specimen(s) removed: Trapezium excised Post-operative diagnosis: Left carpal tunnel syndrome, left thumb basal joint arthritis
--- NOTE | 2024-07-04 10:45 | P.OP_ITS ---
Operative Report Date of procedure: July 04, 2024 Surgeon: Hernan Doss DO Stave Cutter: Adrian Doss PA-C: PA was necessary for assistance in this case with hand positioning to execute the procedure, retraction and protection of neurovascular structures as well as to assist with wound closure and dressing application. Procedure: Preoperative diagnosis: Left carpal tunnel syndrome Left thumb basal joint arthritis Postoperative diagnosis: Same Procedure done: Left carpal tunnel release Left thumb basal joint arthroplasty Left thumb APL slip tendon transfer with interposition Implants: Arthrex fiber lock suspension implant kit for?basal?joint arthroplasty Surgeon: Hernan Doss DO Estimated blood loss: 15mL Tourniquet time: 65mins Complications: none Condition: stable Disposition: same day Brief History: Patient's been seen and worked up in the outpatient setting.? Findings consistent with a Left thumb?basal?joint severe arthritis and left carpal tunnel syndrome.? This is failed conservative treatment and at this point time only other treatment option surgical intervention of the left thumb?basal?joint arthroplasty.? Patient's symptomatology of left carpal tunnel and median nerve paresthesias with provocative symptoms on examination for carpal tunnel. Patient would like to have this addressed during this surgery for the basal joint arthroplasty as well.? We talked about surgery in detail about the risk benefits complication alternatives to surgical nonsurgical treatment options.? Patient does understand with the?basal?joint arthroplasty potential loss of range of motion as well as strength but ultimately this would provide patient with significant pain relief.? Through shared decision making patient elects proceed with surgical intervention of left carpal tunnel release and left thumb?basal?joint arthroplasty.? Once again patient understands risk benefits complication alternatives to each treatment option understanding risk elects to proceed with surgery. Procedure: Patient seen evaluated in the preoperative holding area.? Consent was signed and reviewed with patient.? Correct extremity marked.? Once cleared by anesthesia patient was taken back to the operative suite.? Underwent anesthesia per the anesthesia department.? Patient was placed in supine position all bony prominences well-padded patient was properly secured to the bed.? Underwent anesthesia for the anesthesia department.? A armboard was placed to the left upper extremity a nonsterile tourniquet applied to the left upper arm.? Once appropriately anesthetized left upper extremity was then prepped and draped in standard orthopedic fashion.? Final timeout performed.? Patient received appropriate preoperative antibiotics. Esmarch was used exsanguinate the left upper extremity and tourniquet was insufflated to 250 mmHg. I then made a standard mini open left carpal tunnel incision directly over the previous incision site.? This was made in line with the fourth ray starting distally at Madison's cardinal line extending proximally just distal to the wrist crease.? This was made in patient's palmar crease longitudinally.? Sharp scalpel incision was made through skin.? I then placed a self-retaining retractor and spread longitudinally identified the palmar fascia which was then split.? Next my self-retaining retractor was placed deep and I had direct visualization of the transverse carpal ligament.? This was noted to be significantly thickened.? I then utilizing scalpel incised and feathered through the transverse carpal ligament till entered the carpal tunnel.? Once I did this I switched to Littler dissection scissors and completed the carpal tunnel release surgery distally releasing all of the transverse carpal ligament into the palmar fat with care to protect the recurrent branch as well as the superficial palmar arch.? Once the distal release was performed I then switched to have my editorial assistant placed retraction above the transverse carpal ligament I then under loupe magnification had direct visualization of the transverse carpal ligament.? I utilized dissection scissors curved ulnarly away from the palmar cutaneous branch and protection of this and released the transverse carpal ligament to its entirely proximally into the median antebrachial fascia then I subsequently switched to a [place] and confirmed adequate complete decompression of the carpal tunnel both proximally and distally.? Satisfied with my release and then inspected the contents the carpal tunnel tendons were healthy.? Nerve did appear to be healthy but had been compressed an hourglass shape but overall no masses the nerve appeared to have healthy potential for recovery.? Wound was then thoroughly irrigated.? A wet Ray-Noah was then placed into the incision and I then proceeded with left thumb?basal?joint arthroplasty. ? I then utilized a 15 blade in standard longitudinal fashion directly over the left thumb?basal?joint .? Sharp scalpel incision was made through skin only.? I then switched to Littler dissection scissors and dissected out the dorsal cutaneous branches which were protected throughout this case.? I then identified the APL and EPL tendons.? I then performed a first dorsal compartment release under direct visualization with loupe magnification.? At this point time I then mobilized the tendons with a blunt wheatie self retractor and went through this interval.? Next I was directly onto the CMC joint dorsal capsule.? I then subsequently utilized my dissection scissors to dissect out the radial artery which was then identified and protected by my editorial assistant throughout this case with a Tristindan retractor.? Once I identified the radial artery and dorsal branch I then subsequently performed my capsulotomy of the first CMC joint with [place] blade..? I then introduced a [place] into the arthritic space at the first CMC joint.? This was confirmed with C arm to be the appropriate bone prior to performing my trapeziectomy.? The trapezium was then shelled out and its entirety with a [place] elevator with care to protect and not injure any of my remaining carpal bone articular cartilage as well as not to damage the/injure the radial artery as it was protected throughout the case.? This was then removed and identified the FCR within the floor of my incision.? Trapeziectomy was complete and confirmed on mini C arm. At this point time I thoroughly irrigated and removed of all residual bony debris.? A [place] was placed into the STT joint and joint was inspected and this was found to be free of arthritic changes. I then subsequently plan to proceed with utilizing Arthrex fiber lock suspensioplasty kit which was then opened and then subsequently drilled into the second metacarpal base.? Once I confirm my appropriate placement with mini C arm all suture anchor.? Once this was confirmed appropriate placement I then drilled the impacted and deployed the bicortical suture anchor.? This had excellent tension and could lift the arm off of the table with its fixation.? I then subsequently identified the radial aspect of the first metacarpal and at its mid substance on the radial aspect I subsequently drilled tapped and holding the thumb in appropriate adduction with not over distraction keeping it in line with the base of the second and subsequently loaded suturetape under appropriate tension and thumb positioning keeping the thumb in adduction and appropriate length impacted this suture anchor which had excellent fixation and the excess suture was then removed.? This was then confirmed to have excellent axial stability and an appropriate suspensioplasty.? In order to prevent from impingement with abduction, as well as in order to help add with fixation& interposition within the voided space from the trapeziectomy I then identified a slip of the APL which was then harvested proximally and then weaved this through the FCR tendon twice and then tied this onto the APL tendon itself which created a soft tissue interposition as well as added appropriate abduction to the thumb with appropriate thumb position.? This was then secured with 2 horizontal mattress stitches with 4-0 FiberWire.? I then took the excess of the APL tendon and then placed this within the voided space as a interposition.? I then subsequently had the tourniquet deflated.? Hemostasis was satisfactory.? I then took some Gelfoam to add for soft tissue and interposition within the voided space and hemostasis.? I then closed the capsule with Monocryl suture.? Wound bed was once again thoroughly irrigated.? I then closed the incision with deep 3-0 Vicryl and nylon sutures for skin.? Final x-rays with C arm were then taken showing stable trapeziectomy with soft tissue and suture anchor interposition.? Thumb had excellent axial stability as well as appropriate positioning.? Patient was then dressed with 4 x 4's ABD Curlex and a thumb spica splint.? With an Zane wrap.? Patient was awakened from anesthesia and taken to PACU in stable condition. Disposition: Patient taken to PACU in stable condition recovering well.? Patient to be in thumb spica until follow-up . patient will receive appropriate discharge instructions as well as pain medication postoperatively.? Patient will follow therapy protocol with OT hand therapy for?basal?joint arthroplasty.? Patient understands agrees with current plan.? All questions answered.? We will see me in the office in 2 weeks.
--- NOTE | 2024-07-04 11:06 | PM.PACU ---
PACU note Narrative: Patient is a 48-year-old male just underwent a left carpal tunnel release and left thumb basal joint arthroplasty. Patient transferred to PACU in stable condition. Pain is well controlled. Dressing and splint is on hand is dry and in place. Patient's fingers are warm and well-perfused. normal cap refill under 2 seconds. Patient has normal elbow range of motion. Unable to assess sensation due to residual localized anesthetic. Exam: awake Disposition: discharged
--- NOTE | 2024-07-04 11:15 | PC.NURSE ---
1118- per pt ok'd verbal consent for this nurse to speak with Dad on phone
--- NOTE | 2024-07-04 12:05 | ANE.PACU2 ---
Inpatient post-anesthesia follow up: Airway intact: Yes Vital signs: Temperature 98.1 F Pulse Rate 72 Respiratory Rate 18 Blood Pressure 138/76 Pulse Oximetry 95 Oxygen Delivery Me thod Room Air Oxygen Flow Rate 8 Fraction of Inspir ed Oxygen Hydration adequate: Yes Nausea and vomiting: No Pain level: 1 Mental status: Baseline
== END 2024-07-04 12:21 | disposition home or self-care (01) ==
PROVIDERS: PCP Family Medicine; Visit Provider Student in an Organized Health Care Education/Training Program
PROC: (CPT 64721; principal; 2024-07-04 09:10)
PROC: (CPT 25447; 2024-07-04 09:10)
PROC: 0LXP0ZZ Transfer Left Lower Leg Tendon, Open Approach (ICD-10-PCS; CPT 28760; 2024-07-04 09:10)
DX: G56.02 Carpal tunnel syndrome, left upper limb (principal); Z87.891 Personal history of nicotine dependence
CPT/HCPCS: 25310; 25447; 64721; 73140; 76000; C1713; J0131; J0690; J1885; J2250; J2405; J2704; J7030

== ENCOUNTER 2024-07-19 06:00 | Outpatient (RCR) | payer MEDICARE, SELFPAY | END 2024-08-13 23:59 | disposition home or self-care (01) | LOC: SOT 06:00 | PROVIDERS: PCP Family Medicine; Visit Provider Student in an Organized Health Care Education/Training Program | DX: G56.02 Carpal tunnel syndrome, left upper limb (principal) | CPT/HCPCS: 97022; 97110; 97165; 99024; L3807 ==

== ENCOUNTER 2024-08-14 06:00 | Outpatient (RCR) | payer MEDICARE, SELFPAY | END 2024-09-13 23:59 | disposition home or self-care (01) | LOC: SOT 06:00 | PROVIDERS: PCP Family Medicine; Visit Provider Student in an Organized Health Care Education/Training Program | DX: M18.9 Osteoarthritis of first carpometacarpal joint, unspecified (principal); G56.02 Carpal tunnel syndrome, left upper limb | CPT/HCPCS: 97022; 97110 ==

== ENCOUNTER → 2024-08-16 13:44 | Outpatient (BNVA) | payer MEDICARE, SELFPAY | PROVIDERS: PCP Family Medicine; Visit Provider Student in an Organized Health Care Education/Training Program | DX: Z96.692 Finger-joint replacement of left hand (principal) | CPT/HCPCS: 73130; 99213 ==

== ENCOUNTER → 2024-10-11 12:41 | Outpatient (BNVA) | payer MEDICARE, SELFPAY | PROVIDERS: PCP Family Medicine; Visit Provider Specialist | DX: G40.209 Localization-related (focal) (partial) symptomatic epilepsy and epileptic syndromes with complex partial seizures, not intractable, without status epilepticus (principal); Z96.89 Presence of other specified functional implants | CPT/HCPCS: 95970; 99214 ==

== ENCOUNTER 2025-03-14 11:35 | Emergency (ER) | payer MEDICARE, SELFPAY ==
[2025-03-14 11:42] VITALS: BP 141/89; PULSE 66; RESP 18; TEMP 36.7; O2SAT 97; BMI 25.8
[2025-03-14 12:05] VITALS: BP 143/86; PULSE 70; O2SAT 97
--- NOTE | 2025-03-14 12:08 | ED_ITS ---
HPI - Seizure 2 General: Chief Complaint: Seizure Stated Complaint: dizzy, confusion, jerking movements Time Seen by Provider: 03/14/25 11:57 History of Present Illness: HPI Narrative: 49-year-old male presents emergency room with complaint of what he describes as the aura of an impending seizure. He says a history of seizures he denies having had a seizure yet today but he states he feels that he Sandy is a previous advised to have 1. He is on antiepileptics including Keppra and Lamictal he is not recently missing doses changing doses or changed any medicines. He is awake and alert. He seems very anxious and fidgety. States that began this morning when he first woke up he went to a ministry for a's history of substance abuse he used to use methamphetamines and alcohol he states he has been sober for approximately 4 months now Seizure History: Yes Associated symptoms: Deny chest pain, chills or fever(s) Related Data Previous Rx's ?Medication ?Instructions ?Recorded Custom Thumb Spika #1 ea 07/19/24 lamotrigine 150 mg tablet 150 mg PO DAILY #30 tabs levetiracetam 750 mg See Rx Instructions .Route 0 10/11/24 tablet,extended release 24 hr .COMPLEX #60 tabs Allergies Allergy/AdvReac Type Severity Reaction Status Date / Time tramadol Allergy Severe ALGY-Rash Verified 10/11/24 14:57 Review of Systems 2 Const: Denies: fever(s) or chills Card: Denies: chest pain Resp: Denies: dyspnea GI: Denies: abdominal pain : Denies: dysuria, urinary frequency or urinary urgency Musc: Denies: neck pain or back pain Skin/Breast: Denies: rash PFSH ED 2 PFSH: Medical History Enrolled in chronic care management Prostate cancer Nicotine dependence, other tobacco product, uncomplicated vaping 5 mg nicotine Elevated PSA Major depressive disorder, 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, in remission Generalized anxiety disorder Surgical History Hx of prostatectomy History of appendectomy Status post placement of VNS (vagus nerve stimulation) device 2007 [place], [place] VNS placement Family History Grandfather CAD (coronary artery disease) Hypertension Grandmother Cancer Stroke Mother , AT AGE 55 Shotgun accident Social History Smoking and tobacco/nicotine status: current every day tobacco/nicotine user (Quit cigarettes 4 years ago, Quit meth 1 year ago, Currently Vaping and Smokes THC every now and then) Quit status (tobacco/nicotine): has quit using Year quit tobacco: 2020 Alcohol intake: never Substance/Drug Use: never Marital status: service: No Current occupational status: disabled Current occupational exposures/hazards: No Physical Exam 2 Const: GENERAL APPEARANCE: cooperative ORIENTATION/CONSCIOUSNESS: Yes awake, Yes oriented to person, Yes oriented to place and Yes oriented to time HENMT: COMMON NORMALS: normocephalic, atraumatic and hearing grossly normal bilaterally HEAD & SCALP: normocephalic and atraumatic Resp: COMMON NORMALS: normal respiratory effort, No retractions, No use of accessory muscles and clear to auscultation bilaterally AUSCULTATION: clear to auscultation bilaterally Cardio: COMMON NORMALS: regular rate, regular rhythm and No murmurs present (Cardio) RATE: regular rate RHYTHM: regular rhythm GI: COMMON NORMALS: Soft to palpation and No hepatosplenomegaly present A USCULTATION: Yes normoactive bowel sounds PALPATION: Yes Soft to palpation, No Tenderness to palpation present (GI), No Guarding due to palpation present (GI) and Yes No hepatosplenomegaly present Extremity: COMMON NORMALS: normal to inspection, capillary refill normal, no clubbing, cyanosis or edema, no calf tenderness and no pedal edema Neuro: SENSORIUM/ORIENTATION: Yes oriented to person, Yes oriented to place and Yes oriented to time Skin: COMMON NORMALS: no rashes or lesions noted GENERAL SKIN EXAM: no rashes or lesions noted Course 2 Vital Signs: Vital signs: Vital Signs Temperature 98.1 F 03/14/25 11:42 Pulse Rate 83 03/14/25 14:19 Respiratory Rate 18 03/14/25 11:42 Blood Pressure 121/77 03/14/25 14:19 Pulse Oximetry 98 03/14/25 14:19 Oxygen Delivery Me thod Room Air 03/14/25 12:05 MDM - Seizure MDM Narrative Medical decision making narrative: Patient initially quite anxious fidgeting first arrived he was given Ativan symptoms are resolved he is feeling much better. His laboratory tests are otherwise unremarkable I do not believe he had a seizure he did not report actually having had a seizure he just thought that he felt like he might serum levels done for his Keppra lamotrigine. Will have him follow-up with neurology. Continue all current medications at this time Medical Records Attestation: I reviewed the patient's medical records. Lab Data Attestation: I reviewed the patient's lab results. 03/14/25 12:29 03/14/25 12:29 Labs: Laboratory Results WBC 4.14 10^3/uL (3.29-11.43) 03/14/25 12:29 RBC 5.23 10^6/uL (3.85-5.65) 03/14/25 12:29 Hgb 15.30 g/dL (11.27-16.99) 03/14/25 12:29 Hct 46.3 % (37-53) 03/14/25 12:29 MCV 88.5 fl (82-101) 03/14/25 12:29 MCH 29.3 pg (27-33) 03/14/25 12:29 MCHC 33.0 g/dL (30-55) 03/14/25 12:29 RDW 13.5 % (12.1-15.1) 03/14/25 12:29 Plt Count 297 10^3/cmm (157-399) 03/14/25 12:29 MPV 9.5 fL (7.4-10.4) 03/14/25 12:29 Neut % (Auto) 54.8 % 03/14/25 12:29 Lymph % (Auto) 32.4 % 03/14/25 12:29 [place] % (Auto) 8.7 % 03/14/25 12:29 Eos % (Auto) 2.9 % 03/14/25 12:29 Baso % (Auto) 1.0 % 03/14/25 12:29 Neut # (Auto) 2.27 10^3/uL (1.8-7.7) 03/14/25 12:29 Lymph # (Auto) 1.3 10^3/uL (0.8-4.8) 03/14/25 12:29 [place] # (Auto) 0.4 10^3/uL (0.2-0.9) 03/14/25 12: Eos # (Auto) 0.1 10^3/uL (0.0-0.8) 03/14/25 12: Baso # (Auto) 0.0 10^3/uL (0.0-0.1) 03/14/25 12: Nucleated RBC % (auto) 0 % 03/14/25 12: Nucleated RBCs # 0.0 /100WBC 03/14/25 12:29 Sodium 142 mmol/L (136-145) 03/14/25 12: Potassium 4.2 mmol/L (3.5-5.1) 03/14/25 12: Chloride 105 mmol/L (98-107) 03/14/25 12: Carbon Dioxide 26 mmol/L (22-29) 03/14/25 12: Anion Gap 15.2 (5-19) 03/14/25 12: BUN 9 mg/dL (6-20) 03/14/25 12: Creatinine 1.0 mg/dL (0.7-1.2) 03/14/25 12: GFR Calculation 78.8 mL/min (90-130) L 03/14/25 12: Glucose 103 mg/dL (65-115) 03/14/25 12: Calculated Osmolality 293 mOsm/kg (285-295) 03/14/25 12: Calcium 9.4 mg/dL (8.5-10.5) 03/14/25 12: Magnesium 2.1 mg/dL (1.7-2.3) 03/14/25 12: Total Bilirubin 0.5 mg/dL (0.15-1.2) 03/14/25 12: AST 13 U/L (0-40) 03/14/25 12: ALT 13 U/L (0-41) 03/14/25 12: Alkaline Phosphatase 101 U/L (40-130) 03/14/25 12: Total Protein 6.9 g/dL (6.6-8.7) 03/14/25 12: Albumin 4.2 g/dL (3.5-5.2) 03/14/25 12:29 Globulin 2.7 g/dL (1.3-4.6) 03/14/25 12:29 Salicylates < 0.3 mg/dL (3-10) L 03/14/25 12:29 Urine Opiates Screen Negative ng/mL (Negative) 03/14/25 12:40 Acetaminophen < 5.0 ug/mL (10-30) L 03/14/25 12:29 Ur Barbiturates Screen Negative ng/mL (Negative) 03/14/25 12:40 Ur Phencyclidine Scrn Negative ng/mL (Negative) 03/14/25 12:40 Ur Amphetamines Screen Negative ng/mL (Negative) 03/14/25 12:40 U Benzodiazepines Scrn Negative ng/mL (Negative) 03/14/25 12:40 Urine Cocaine Screen Negative ng/mL (Negative) 03/14/25 12:40 U Marijuana (THC) Screen Negative ng/mL (Negative) 03/14/25 12:40 Ethyl Alcohol < 10 mg/dL (0-10) 03/14/25 12:29 All radiology interpretation(s) finalized by discharge Discharge Plan Discharge Patient Disposition: Home Clinical Impression: Epilepsy Qualifiers: Epilepsy type: partial symptomatic Partial seizure type: with complex partial seizures Intractability: not intractable Status epilepticus: without status epilepticus Qualified Code(s): G40.209 - Localization-related (focal) (partial) symptomatic epilepsy and epileptic syndromes with complex partial seizures, not intractable, without status epilepticus Condition: Stable Prescriptions: No Action levetiracetam 750 mg tablet extended release 24 hr See Rx Instructions .ROUTE .COMPLEX Qty: 60 11RF Dose Instruction: TAKE 2 TABLETS BY MOUTH ONCE DAILY AT 9AM Rx Instructions: TAKE 2 TABLETS BY MOUTH ONCE DAILY AT 9AM lamotrigine 150 mg tablet 150 mg PO DAILY Qty: 30 11RF (DME) Custom Thumb Spika See Rx Instructions .Route .MEDSUPPLY Qty: 1 0RF Rx Instructions: As directed Discharge Orders: Discharge ED (Routine); Ordered 03/14/25 Ordered By: Saji Melton Referrals: Kishore Silver MD [Primary Care Provider, [facility]] Discharge Diet: Usual diet Discharge Activity: Increase activity as tolerated Patient Instructions: Opioid Safety, Pain Management, Patient Portal & Gracy Instructions Activity Restrictions/Additional Instructions: Thank you for choosing [facility] for your healthcare needs today. It is very important that you follow up as instructed or that you return to the Emergency Department should you have concerns or if your condition changes or worsens in any way. You were seen in the emergency room and generally not feeling well. Laboratory test did not show any significant abnormalities we did get levels on your Keppra and lamotrigine. These are pending and can be followed up with Dr. Lyman. Do recommend he follow-up with Dr. Lyman within the next 1 to 2 weeks. Print Language: Korean Coding Level of Care Code ED Patient Access Representative for Oneida Granados
--- NOTE | 2025-03-14 12:11 | ECG_ITS ---
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 Measurements Intervals [place] Rate: 59 P: 63 [place]: 143 QRS: 47 QRSD: 122 T: 43 QT: 389 QTc: 386 Interpretive Statements SINUS BRADYCARDIA RIGHT BUNDLE BRANCH BLOCK [120+ ms QRS DURATION, UPRIGHT V1, 40+ ms S IN I/aVL/V4/V5/V6] Compared to ECG 12/31/2020 06:16:32 Right bundle-branch block now present Sinus rhythm no longer present Atrial abnormality no longer present Incomplete right bundle-branch block no longer present ST (T wave) deviation no longer present Electronically Signed On 03-16-2025 09:03:07 CDT by Ismael Robison M.D. [email or web address]
[2025-03-14 12:40] LABS: Hematocrit 46.3 % (37-53); Hemoglobin 15.30 g/dL (11.27-16.99); Mean Corpuscular HGB Conc 33.0 g/dL (30-55); Mean Corpuscular Hemoglobin 29.3 pg (27-33); Mean Corpuscular Volume 88.5 fl (82-101); Nucleated Red Blood Cells % 0 %; Platelet Count 297 10^3/cmm (157-399); Red Blood Count 5.23 10^6/uL (3.85-5.65); White Blood Count 4.14 10^3/uL (3.29-11.43)
--- NOTE | 2025-03-14 12:56 | PC.PHAR ---
Pt states he took his am medications today. [facility] states they just transferred Lamotrigine 150mg and Levetiracetam 750mg in to their pharmacy and have not even filled them yet. Pt has been filling here at [facility] Main pharmacy. Last fill on both was 01/09/25 for a 30 day supply.
[2025-03-14 12:57] LABS: Alanine Aminotransferase 13 U/L (0-41); Albumin Level 4.2 g/dL (3.5-5.2); Alkaline Phosphatase 101 U/L (40-130); Anion Gap 15.2 (5-19); Aspartate Amino Transferase 13 U/L (0-40); Blood Urea Nitrogen 9 mg/dL (6-20); Calcium 9.4 mg/dL (8.5-10.5); Carbon Dioxide 26 mmol/L (22-29); Chloride 105 mmol/L (98-107); Creatinine Clr Calc Pharmacy 88.8571; Globulin 2.7 g/dL (1.3-4.6); Glucose 103 mg/dL (65-115); Magnesium 2.1 mg/dL (1.7-2.3); Osmolality Calculated 293 mOsm/kg (285-295); Potassium 4.2 mmol/L (3.5-5.1); Sodium 142 mmol/L (136-145); Total Protein 6.9 g/dL (6.6-8.7)
[2025-03-14 13:00] VITALS: BP 149/73; PULSE 69; O2SAT 99
[2025-03-14 13:00] LABS: Acetaminophen < 5.0 ug/mL (10-30); Alcohol Level < 10 mg/dL (0-10); Salicylate < 0.3 mg/dL (3-10)
[2025-03-14 13:03] LABS: PCP Screen Urine Negative (Negative)
[2025-03-14 14:19] VITALS: BP 121/77; PULSE 83; O2SAT 98
[2025-03-15 10:14] LABS: Levetiracetam Immunoassy <2.0 mcg/mL (6.0-46.0)
== END 2025-03-14 14:23 | disposition home or self-care (01) ==
PROVIDERS: Emergency Provider Family Medicine; PCP Family Medicine
DX: G40.209 Localization-related (focal) (partial) symptomatic epilepsy and epileptic syndromes with complex partial seizures, not intractable, without status epilepticus (principal); F17.210 Nicotine dependence, cigarettes, uncomplicated; Z85.46 Personal history of malignant neoplasm of prostate
CPT/HCPCS: 36415; 80053; 80175; 80177; 80306; 80307; 83735; 85025; 93005; 99284; J9999

== ENCOUNTER → 2025-03-15 14:55 | Outpatient (BNVA) | payer MEDICARE, SELFPAY | PROVIDERS: PCP Family Medicine; Visit Provider Specialist | DX: Z96.89 Presence of other specified functional implants (principal); G40.209 Localization-related (focal) (partial) symptomatic epilepsy and epileptic syndromes with complex partial seizures, not intractable, without status epilepticus | CPT/HCPCS: 95970; 99215 ==

== ENCOUNTER → 2025-04-17 08:35 | Outpatient (BNVA) | payer MEDICARE, SELFPAY | PROVIDERS: PCP Family Medicine; Visit Provider Student in an Organized Health Care Education/Training Program | DX: R19.5 Other fecal abnormalities (principal) | CPT/HCPCS: 99204 ==

== ENCOUNTER 2025-05-09 09:55 | Day surgery (SDC) | payer MEDICARE, SELFPAY ==
[2025-05-09 10:13] VITALS: BP 125/89; PULSE 58; RESP 18; TEMP 36.1; O2SAT 97; BMI 25.8
--- NOTE | 2025-05-09 10:30 | ANES.PREANE2 ---
Pre-Anesthetic Assessment Height/Weight: Height 1.73 m Weight 77.111 kg Temp Pulse Resp BP Pulse Ox O2 Del Method 97.0 F L 58 L 18 125/89 97 Room Air 05/09/25 10:13 05/09/25 10:13 05/09/25 10:13 05/09/25 10:13 05/09/25 10:13 05/09/25 10:13 Preop Diagnosis: + cologuard test Operation Date: 05/09/25 11:15 Proposed Procedures p Colonoscopy 92093 G0105 R19.5(Not Applicable) - Isreal Fowler MD Familial anesthetic complications: none Was Beta King taken within 24 hours: N/A Was Clonidine taken within 24 hours: N/A Last intake: Intake Last Liquid Date 05/08/25 Last Liquid Time 20:00 Last Solid Date 05/07/25 Last Solid Time 19:00 Social Tobacco (nicotine, 05/08/25) Exam alert, oriented x 3, clear to auscultation bilaterally and regular rate & rhythm Airway Submandibular: within normal limits Cervical ROM: within normal limits Mallampati: Class II Dentition: false (upper and lower plate) Pulmonary None reported CV/HEM None reported None reported Hepatic None reported GI None reported Metabolic Hyperlipidemia Neuropsych Anxiety, Depression and 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) Anesthetic Plan ASA status: 3 Anesthesia: MAC Medications/Allergies Home Medications ?Medication ?Instructions ?Recorded ?Confirmed ?Last Taken ?Type Custom Thumb Spika #1 ea 07/19/24 04/17/25 Unknown Rx lamotrigine 150 mg tablet 150 mg PO DAILY #30 tabs 10/11/24 05/03/25 05/03/25 Rx duloxetine 30 mg capsule,delayed 30 mg PO QDAY 04/17/25 05/03/25 05/02/25 History release levetiracetam 750 mg 1,500 mg PO DAILY 05/03/25 05/03/25 05/03/25 History tablet,extended release 24 hr Allergies Allergy/AdvReac Type Severity Reaction Status Date / Time tramadol Allergy Severe ALGY-Rash Verified 05/03/25 10:27 Current Medications Generic Name Dose Route Start Last Admin Trade Name Freq PRN Reason Stop Dose Admin Sodium Chloride 1,000 mls @ 15 mls/hr 05/09/25 09:58 05/09/25 10:20 Sodium Chloride 0.9% IV 05/10/25 09:57 15 mls/hr .Q24H PRN Administration COLONOSCOPY FLUIDS PFSH Anesthesia Medical History (Updated 04/17/25 @ 09:54 by Isreal Fowler MD) Enrolled in chronic care management Prostate cancer Nicotine dependence, other tobacco product, uncomplicated vaping 5 mg nicotine Elevated PSA Major depressive disorder, 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, in remission Generalized anxiety disorder Surgical History Hx of prostatectomy History of appendectomy Status post placement of VNS (vagus nerve stimulation) device 2007 [place], [place] VNS placement Family History Grandfather CAD (coronary artery disease) Hypertension Grandmother Cancer Stroke Mother , AT AGE 55 Shotgun accident Social History Smoking and tobacco/nicotine status: current every day tobacco/nicotine user (Quit cigarettes 4 years ago, Quit meth 1 year ago, Currently Vaping and Smokes THC every now and then) Quit status (tobacco/nicotine): has quit using Year quit tobacco: 2020 Alcohol intake: never Substance/Drug Use: never Marital status: service: No Current occupational status: disabled Current occupational exposures/hazards: No
--- NOTE | 2025-05-09 10:56 | W.PM.OPSUD ---
Surgery/Procedure H&P Update DATE OF PROCEDURE: May 09, 2025 DATE H&P PERFORMED: 04/17/25 H&P UPDATE INFORMATION: I have reviewed H&P completed within last 30 days, I have examined patient prior to procedure and No changes to prior documentation PREOP DIAGNOSIS: + cologuard test PLANNED PROCEDURE: Operation Date: 05/09/25 11:15 Proposed Procedures p Colonoscopy 57292 G0105 R19.5(Not Applicable) - Isreal Fowler MD
--- NOTE | 2025-05-09 11:11 | PC.NURSE ---
Cecum time 1111
[2025-05-09 11:22] VITALS: BP 124/90; PULSE 102; RESP 14; O2SAT 96
[2025-05-09 11:37] VITALS: BP 131/92; PULSE 92; RESP 16; O2SAT 95
--- NOTE | 2025-05-09 11:45 | ANE.PACU2 ---
Inpatient post-anesthesia follow up: Airway intact: Yes Vital signs: Temperature 97.0 F Pulse Rate 92 Respiratory Rate 16 Blood Pressure 131/92 Pulse Oximetry 95 Oxygen Delivery Me thod Room Air Oxygen Flow Rate Fraction of Inspir ed Oxygen Hydration adequate: Yes Nausea and vomiting: No Pain level: 1 Mental status: Baseline
== END 2025-05-09 11:45 | disposition home or self-care (01) ==
PROVIDERS: PCP Nurse Practitioner Family; Visit Provider Student in an Organized Health Care Education/Training Program
PROC: 0DJD8ZZ Inspection of Lower Intestinal Tract, Via Natural or Artificial Opening Endoscopic (ICD-10-PCS; CPT 45378; principal; 2025-05-09 11:15)
DX: Z12.11 Encounter for screening for malignant neoplasm of colon (principal); R19.5 Other fecal abnormalities; D12.5 Benign neoplasm of sigmoid colon; E78.5 Hyperlipidemia, unspecified; F41.8 Other specified anxiety disorders; R56.9 Unspecified convulsions; Z85.46 Personal history of malignant neoplasm of prostate; F12.91 Cannabis use, unspecified, in remission; Z87.891 Personal history of nicotine dependence
CPT/HCPCS: 45385; 88305; J2704; J3490; J7030

== ENCOUNTER → 2025-08-30 13:23 | Outpatient (BNVA) | payer MEDICARE, SELFPAY | PROVIDERS: PCP Nurse Practitioner Family; Visit Provider Specialist | DX: G40.209 Localization-related (focal) (partial) symptomatic epilepsy and epileptic syndromes with complex partial seizures, not intractable, without status epilepticus (principal); Z79.899 Other long term (current) drug therapy; Z96.89 Presence of other specified functional implants | CPT/HCPCS: 36415; 80175; 80177; 95970; 99213 ==